=== PATIENT | male | born 1960 | race Caucasian/White ===

== ENCOUNTER 2021-11-22 17:10 | Emergency (ER) | payer BC, OTHER ==
--- OUTSIDE RECORDS SUMMARY | 2021-11-22 17:13 | XMS REPORT | Continuity of Care Document ---
:1960 Author Organization [facility] t Address [address] [place] [address] Care Team Providers Name Role Phone Pcp, Does Not Have A Primary Care Physician Doctor Unassigned, Name Attending Clinician Unavailable Antonio Murillo MD Attending Clinician Antonio MURILLO Attending Clinician Unavailable VIMAL RODRIGUEZ Attending Clinician Unavailable VIMAL RODRIGUEZ Attending Clinician Unavailable Payers Payer Name Policy Type Policy Number Effective Date Expiration Date S [facility] - [id number] 2020 00:00:00 OUT OF STATE Problems Condition Condition Condition Status Onset Resolution Last Treating Co mments Source Name Details Category Date Date Treatment Clinician Date No known No known Disease Unive rs active active ity of problems problems [facility] Allergies, Adverse Reactions, Alerts Allergy Allergy Status Severity Reaction(s) Onset Inactive Treating Comm ents Source Name Type Date Date Clinician Penicill Propensi Active Other - See U nivers ins ty to comments 02-23 ity of adverse 00:00: [place] reaction 00 Medical s Branch PENICILL Drug Active Other-Cmnt Univ ers INS Class 6-28 ity of 00:00: [place] 00 Medical Branch NO KNOWN Drug Active Univers ALLERGIE Class ity of S [facility] [place] Social History Social Habit Start Date Stop Date Quantity Comments Source History SDOH University o f Alcohol Binge [place] [facility] History SDOH University o f Alcohol Comment [facility] Exposure to Not sure University of SARS-CoV-2 [facility] (event) [facility] History SDOH University o f Alcohol Std [facility] Drinks [facility] Alcohol intake 2021-06-19 2021-06-19 Lifetime University of 00:00:00 00:00:00 non-drinker [facility] (finding) [facility] Tobacco use and 2021-01-05 2021-01-05 Never used Universit y of exposure 00:00:00 00:00:00 [facility] History SDOH 2021-01-05 2021-01-05 1 University o f Alcohol Frequency 00:00:00 00:00:00 [facility] Sex Assigned At [birth year] Universit y of 00:00:00 00:00:00 [facility] Smoking Status Start Date Stop Date Source Never smoker [facility] Medications Ordered Filled Start Stop Current Ordering Indication Dosage Frequency Signature Comments Components Source Medication Medication Date Date Medication? Clinician (SIG) Name Name diclofenac Yes 75mg Take 1 Unive rs 75 mg EC 5-11 tablet by ity of tablet 00:00: mouth 2 [place] ([facility]) Medical times Branch daily with meals. diclofenac 2020-0 Yes 75mg Take 1 Unive rs 75 mg EC 5-11 tablet by ity of tablet 00:00: mouth 2 [place] ([facility]) Medical times Branch daily with meals. diclofenac 2020-0 Yes 75mg Take 1 Unive rs 75 mg EC 5-11 tablet by ity of tablet 00:00: mouth 2 [place] ([facility]) Medical times Branch daily with meals. ibuprofen 2020-0 Yes 600mg Take 600 Uni vers 600 mg 3-16 mg by ity of tablet 00:00: mouth 4 [place] ([facility]) Medical times Branch daily. ibuprofen 2020-0 Yes 600mg Take 600 Uni vers 600 mg 3-16 mg by ity of tablet 00:00: mouth 4 [place] ([facility]) Medical times Branch daily. ibuprofen 2020-0 Yes 600mg Take 600 Uni vers 600 mg 3-16 mg by ity of tablet 00:00: mouth 4 [place] ([facility]) Medical times Branch daily. lisinopriL 2020- Yes 10mg Take 10 mg U nivers 10 mg 2-19 by mouth ity of tablet 00:00: daily. [address] lisinopriL 2020-0 Yes 10mg Take 10 mg U nivers 10 mg 2-19 by mouth ity of tablet 00:00: daily. [address] lisinopriL 2020-0 Yes 10mg Take 10 mg U nivers 10 mg 2-19 by mouth ity of tablet 00:00: daily. [address] Procedures Procedure Date / Time Performing Clinician Source Performed DISABILITY/FMLA 2021-07-14 06:01:00 Doctor Unasskat, No Nathaniel carolina [facility] AUTHORIZATION FOR 2021-06-11 05:01:00 Doctor Unassigned, No Univ [facility] RELEASE OF [facility] Encounters Start End Encounter Admission Attending Care Care Encounter Source Date/Time Date/Time Type Type Clinicians Facility Department ID 2021-07-14 2021-07-14 Orders Doctor LAURY [id number] Univers 00:00:00 00:00:00 Only Unassigned, YADIRA [id number] [facility] [id number] [place] as [id number] [address] 2021-06-19 2021-06-19 Office Chidi [facility] [id number] Univers 08:50:50 09:12:45 Visit [facility] [id number] it y of [place] [id number] [place]ay[place] as Edwin?Blea [id number] [address] Medical Office Building 2021-06-19 2021-06-19 Outpatient Cayetano MURILLO [facility] [id number] Univers 08:45:00 08:45:00 DARREL [id number] ity [facility] 2021-06-19 2021-06-19 Outpatient R CHIDI [facility] [id number] Univers 08:45:00 08:45:00 DARREL [facility] 2021-06-11 2021-06-11 Orders Doctor SCHAEFFER [id number] Univers 00:00:00 00:00:00 Only UnassignedYADIRA [id number] [facility] [id number] [place] as [id number] [address] 2021-04-27 2021-04-27 Outpatient CLINT WATKINS [facility] [id number] Univers 09:00:00 09:00:00 CLINT RODRIGUEZ [id number] ity [facility] 2021-04-27 2021-04-27 Outpatient R CLINT RODRIGUEZ [facility] [id number] Univers 09:00:00 09:00:00 [facility] 2021-04-16 Outpatient R CHIDI [facility] [id number] Univers 10:45:00 10:45:00 DARREL [facility] 2021-04-16 2021-04-16 Outpatient R CHIDI [facility] [id number] Univers 10:45:00 10:45:00 [facility] [id number] [facility]-04-13 2021-04-13 Outpatient R CHIDI [facility] [id number] Univers 15:30:00 15:30:00 [facility] [id number] [facility] 2021-04-13 2021-04-13 Outpatient R CHIDI [facility] [id number] Univers 15:30:00 15:30:00 DARREL [facility] 2021-03-26 2021-03-26 Outpatient [facility] [id number] Univers 09:00:00 09:00:00 [id number] [facility] 2021-03-26 2021-03-26 Outpatient R CHIDI [facility] [id number] Univers 09:00:00 09:00:00 DARREL [facility] 2021-02-23 2021-02-23 Outpatient CHIDI [facility] [id number] Univers 15:00:00 15:00:00 [facility] [id number] [facility] 2021-02-23 2021-02-23 Outpatient R CHIDI [facility] [id number] Univers 15:00:00 15:00:00 DARREL [facility] 2021-01-05 2021-01-05 Outpatient R CHIDI [facility] [id number] Univers 15:15:00 15:15:00 DARREL [id number] [facility] 2021-01-05 2021-01-05 Outpatient R CHIDI [facility] [id number] Univers 15:15:00 15:15:00 [facility] 2020-12-11 2020-12-11 Outpatient R CHIDI, [facility] [id number] [facility] 08:00:00 08:00:00 [facility] Results This patient has no known results.
[2021-11-22 20:07] LABS: Absolute Lymphocytes (CBC) 2.9 K/uL (0.7-4.9); Hematocrit 40.5 % (39.6-49.0); Lymphocytes % 26.9 % (15.3-44.8); MPV 8.1 fL (7.6-11.3); RBC Red Blood Cell Count 4.53 M/uL (4.33-5.43)
[2021-11-22 20:09] LABS: Protime INR 1.11
[2021-11-22] MEDS ORDERED: NA CHLORIDE 0.9% 0 ML ONE (20:23)
[2021-11-22] MEDS ORDERED: LORazepam 2 MG/ML VIAL ONE (20:23)
[2021-11-22] MEDS ORDERED: NA CHLORIDE 0.9% 1,000 ML ONE (20:24)
[2021-11-22 20:41] LABS: BUN Blood Urea Nitrogen 16 mg/dL (7-18); Bicarbonate 30 mmol/L (21-32); Glucose Level 103 mg/dL (74-106); Magnesium 2.1 mg/dL (1.8-2.4); Potassium 4.3 mmol/L (3.5-5.1); Sodium Level 139 mmol/L (136-145); Troponin High Sensitivity 5.9 pg/mL (<58.9)
--- NOTE | 2021-11-22 20:53 | RAD REPORT ---
EXAM DESCRIPTION: Jessica Single View11/22/2021 8:31 pm CLINICAL HISTORY: Vomiting and weakness COMPARISON: none FINDINGS: The lungs appear clear of acute infiltrate. The heart is normal size IMPRESSION: No acute abnormalities displayed
[2021-11-22 21:14] LABS: Urine Blood Negative (Negative); Urine Glucose Negative (Negative); Urine Protein Negative (Negative); Urine Specific Gravity >=1.030 (1.005-1.030); Urine pH 6.5 (5.0-7.0)
--- NOTE | 2021-11-22 21:28 | RAD REPORT ---
EXAM DESCRIPTION: CT - Head Brain Wo Cont - 11/22/2021 9:09 pm CLINICAL HISTORY: Headache COMPARISON: None TECHNIQUE: Computed axial tomography of the head was obtained. IV contrast was not requested. All CT scans are performed using dose optimization technique as appropriate and may include automated exposure control or mA/KV adjustment according to patient size. FINDINGS: An intracranial bleed is not seen . The ventricles are normal in caliber. No extra-axial fluid collection is noted. Mild low-density areas within periventricular, deep and subcortical white matter likely represent isc hemic changes secondary to small vessel disease. Moderate ethmoid and left maxillary sinusitis IMPRESSION: No acute intracranial abnormality is seen. If patient's symptoms persist MRI of the bra in would be recommended. Moderate ethmoid and left maxillary sinusitis
[2021-11-22 21:39] LABS: Barbiturates NEGATIVE (NEGATIVE); Benzodiazepines NEGATIVE (NEGATIVE); Cocaine NEGATIVE (NEGATIVE); METHAMPHETAM NEGATIVE (NEGATIVE); Methadone NEGATIVE (NEGATIVE); Opiates POSITIVE (NEGATIVE); Phencyclidine NEGATIVE (NEGATIVE); THC Cannibis NEGATIVE (NEGATIVE)
[2021-11-22 21:44] LABS: Urine Bacteria <20 /HPF (NONE SEEN); Urine RBC NONE SEEN /HPF (NONE SEEN)
[2021-11-23 00:03] LABS: ALT/SGPT 27 U/L (12-78); AST/SGOT 14 U/L (15-37); Albumin 3.7 g/dL (3.4-5.0); Alkaline Phosphatase 90 U/L (45-117); Bilirubin Total 0.5 mg/dL (0.2-1.0); Protein, Total 7.5 g/dL (6.4-8.2)
[2021-11-23 00:07] LABS: Bilirubin Direct < 0.1 mg/dL (0-0.2)
--- NOTE | 2021-11-23 02:53 | ER ---
Nurse's Notes [facility] Name: Vinicius Rhoades Age: 61 yrs Sex: Male : 1960 Arrival Date: 11/22/2021 Time: 17:14 Bed 17 Private MD: Diagnosis: Other depressive episodes;Anxiety disorder, unspecified Presentation: 11/22 17:25 Chief complaint: Spouse and/or significant other states: "He went to work yesterday and ab2 he came saying he was throwing up at work. I then find out he cant hardly eat anything, which is not like him. Today I found him all jittery and not like himself. Its like depression and anxiety." Pt c/o left knee pain and chronic lower back pain. Pt is crying and states that he is so stressed. Pt states, "this is not me, I don't know what is going on.". Coronavirus screen: Vaccine status: Patient reports receiving the 2nd dose of the covid vaccine. Client denies travel out of the [place] in the last 14 days. At this time, the client does not indicate any symptoms associated with coronavirus-19. Ebola Screen: Patient negative for fever greater than or equal to 101.5 degrees Fahrenheit, and additional compatible Ebola Virus Disease symptoms Patient denies exposure to infectious person. Patient denies travel to an Ebola-affected area in the 21 days before illness onset. No symptoms or risks identified at this time. Initial Sepsis Screen: Does the patient meet any 2 criteria? No. Patient's initial sepsis screen is negative. Does the patient have a suspected source of infection? No. Patient's initial sepsis screen is negative. Risk Assessment: Do you want to hurt yourself or someone else?. Risk Assessment: Do you want to hurt yourself or someone else? Patient reports no desire to harm self or others. Onset of symptoms is unknown. 17:25 Method Of Arrival: Ambulatory ab2 17:25 Acuity: GAYLA 3 ab2 Triage Assessment: 17:30 General: Appears in no apparent distress. uncomfortable, Behavior is anxious, crying. ab2 Pain: Complains of pain in head and left leg Pain currently is 8 out of 10 on a pain scale. Pain began Also complains of. Neuro: Level of Consciousness is awake, alert, obeys commands, Oriented to person, place, time, situation, Appropriate for age Reports headache. 23:06 Headache History: Denies prior headaches. kd3 Historical: - Allergies: 17:30 PENICILLINS; ab2 - PMHx: 17:30 None; ab2 - PSHx: 17:30 None; ab2 - Immunization history:: Adult Immunizations up to date. - Social history:: Smoking status: Patient reports the use of cigarette tobacco products, smokes one pack cigarettes per day. Screenin:05 Abuse screen: Denies threats or abuse. Denies injuries from another. Abuse screen: kd3 Denies threats or abuse. Denies injuries from another. Nutritional screening: No deficits noted. Tuberculosis screening: No symptoms or risk factors identified. Fall Risk IV access (20 points). Assessment: 19:01 General: Appears in no apparent distress. comfortable, Behavior is cooperative, jd3 appropriate for age, anxious, crying. Pain: Complains of pain in head and left leg Quality of pain is described as aching. Neuro: Level of Consciousness is awake, alert, obeys commands, Oriented to person, place, time, situation. Cardiovascular: Denies chest pain, Capillary refill < 3 seconds Patient's skin is warm and dry. Respiratory: Airway is patent Respiratory effort is even, unlabored, Respiratory pattern is regular, symmetrical. GI: No signs and/or symptoms were reported involving the gastrointestinal system. : No signs and/or symptoms were reported regarding the genitourinary system. EENT: No signs and/or symptoms were reported regarding the EENT system. Derm: Skin is intact, Skin is dry, Skin is normal, Skin temperature is warm. Musculoskeletal: Circulation, motion, and sensation intact. Range of motion: intact in all extremities. 23:06 Reassessment: Patient is alert, oriented x 3, equal unlabored respirations, skin kd3 warm/dry/pink. pt seen sleeping in stretcher. 11/23 00:34 Reassessment: pt is agreeable to speak with community hospital at this time. denies current kd3 thoughts of self harm or suicide but reports having thoughts in the past. Vital Signs: 11/22 17:25 BP 122 / 74; Pulse 81; Resp 18; Temp 99.1(TE); Pulse Ox 95% on R/A; Weight 67.59 kg; ab2 Height 5 ft. 9 in. (175.26 cm); Pain 8/10; 19:48 BP 154 / 76; Pulse 63; Resp 14; Temp 98.0; kd3 23:05 BP 111 / 61; Pulse 67; Resp 16; Pulse Ox 98% on R/A; kd3 11/23 02:46 BP 129 / 72; Pulse 71; Resp 16; Pulse Ox 100% on R/A; kd3 11/22 17:25 Body Mass Index 22.00 (67.59 kg, 175.26 cm) ab2 ED Course: 11/22 17:14 Patient arrived in ED. ds1 17:30 Triage completed. ab2 17:31 Arm band placed on right wrist. ab2 18:57 Dexter Barger PA is PHCP. cp 18:57 Dexter Womack MD is Attending Physician. cp 19:20 Shayla Bauer, RN is Primary Nurse. kd3 20:33 XRAY Chest (1 view) In Process Unspecified. EDMS 21:11 CT Head Brain wo Cont In Process Unspecified. EDMS 21:46 Yevgeniy Parrish MD is Attending Physician. cp 23:06 Patient has correct armband on for positive identification. Bed in low position. Call 3 light in reach. Side rails up X2. 23:14 contacted [facility] Crisis line spoke to Roxie to have a screener evaluate the patient. mw2 11/23 01:50 patient talking to Richie from [facility]. mw2 03:29 No provider procedures requiring assistance completed. IV discontinued, intact, kd3 bleeding controlled, No redness/swelling at site. Pressure dressing applied. Administered Medications: 11/22 20:26 Drug: Ativan (LORazepam) 1 mg Route: IVP; Site: right antecubital; kd3 21:37 Follow up: Response: No adverse reaction kd3 20:26 Drug: NS 0.9% 500 ml Route: IV; Rate: bolus; Site: right antecubital; kd3 21:37 Follow up: Rate change 500 ml; IV Status: Completed infusion kd3 21:37 Drug: NS 0.9% 500 ml Route: IV; Rate: 125 ml/hr; Site: right antecubital; kd3 11/23 03:29 Follow up: IV Status: Completed infusion kd3 Outcome: 02:52 Discharge ordered by . cp 03:29 Discharged to home ambulatory. kd3 03:29 Condition: stable 03:29 Discharge instructions given to patient, family, Instructed on discharge instructions, follow up and referral plans. Demonstrated understanding of instructions, follow-up care. 03:30 Patient left the ED. kd3 Signatures: Dispatcher [employer] EDAL Flora Oneill ds1 Dexter Barger PA PA cp Davies, Jonathon, RN RN jd3 Carrillo Jordan2 Shayla Bauer RN RN kd3 Ken Laird2
--- NOTE | 2021-11-23 02:53 | EDPHYS ---
Physician Documentation [facility] Name: Vinicius Rhoades Age: 61 yrs Sex: Male : 1960 Arrival Date: 11/22/2021 Time: 17:14 Bed 17 Private MD: ED Physician Yevgeniy Parrish HPI: 11/22 19:25 This 61 yrs old Male presents to ER via Ambulatory with complaints of Anxiety, cp Headache, Doesn't Feel Right. 19:25 Associated signs and symptoms: Pertinent negatives: abdominal pain, chest pain, cp constipation, cough, diarrhea, fever, wheezing. 19:25 Patient c/o headache, difficulty sleeping, weight loss over past 3 months, decreased cp appetite. Patient reports "I just don't feel right". 23:05 reports patient grabbed a knife today and pressed it against his body in attempt cp to harm himself. She reports she was able to get knife away from him after distracting him. Historical: - Allergies: 17:30 PENICILLINS; ab2 - PMHx: 17:30 None; ab2 - PSHx: 17:30 None; ab2 - Immunization history:: Adult Immunizations up to date. - Social history:: Smoking status: Patient reports the use of cigarette tobacco products, smokes one pack cigarettes per day. ROS: 19:30 Constitutional: Positive for weight loss, Negative for body aches, chills, fever, poor cp PO intake. 19:30 Eyes: Negative for injury, pain, redness, and discharge. cp 19:30 ENT: Negative for drainage from ear(s), ear pain, sore throat, difficulty swallowing, difficulty handling secretions. 19:30 Cardiovascular: Negative for chest pain, edema, palpitations. 19:30 Respiratory: Negative for cough, shortness of breath, wheezing. 19:30 Abdomen/GI: Negative for abdominal pain, nausea, vomiting, and diarrhea. 19:30 : Negative for urinary symptoms. 19:30 Skin: Negative for cellulitis, rash. 19:30 Neuro: Positive for headache, Negative for altered mental status, dizziness, weakness. 19:30 Psych: Positive for anxiety, insomnia. 19:30 All other systems are negative. Exam: 19:33 ECG was reviewed by the Attending Physician. cp 19:35 Constitutional: The patient appears in no acute distress, alert, awake, cp non-diaphoretic, non-toxic, well developed, well nourished, anxious. 19:35 Head/Face: Normocephalic, atraumatic. cp 19:35 Eyes: Periorbital structures: appear normal, Pupils: equal, round, and reactive to light and accomodation, Extraocular movements: intact throughout, Conjunctiva: normal, no exudate, no injection, Sclera: no appreciated abnormality, Lids and lashes: appear normal, bilaterally. 19:35 ENT: External ear(s): are unremarkable, Ear canal(s): are normal, clear, TM's: dullness, bilaterally, Nose: is normal, Mouth: Lips: moist, Oral mucosa: pink and intact, moist, Posterior pharynx: Airway: no evidence of obstruction, patent. 19:35 Neck: ROM/movement: is normal, is supple, without pain, no range of motions limitations. 19:35 Chest/axilla: Inspection: normal, Palpation: is normal, no crepitus, no tenderness. 19:35 Cardiovascular: Rate: normal, Rhythm: regular, Edema: is not appreciated, JVD: is not appreciated. 19:35 Respiratory: the patient does not display signs of respiratory distress, Respirations: normal, no use of accessory muscles, no retractions, labored breathing, is not present, Breath sounds: are clear throughout, no decreased breath sounds, no stridor, no wheezing. 19:35 Abdomen/GI: Inspection: abdomen appears normal, Bowel sounds: active, all quadrants, Palpation: abdomen is soft and non-tender, in all quadrants. 19:35 Back: pain, is absent, ROM is normal. 19:35 Skin: cellulitis, is not appreciated, no rash present. 19:35 Neuro: Orientation: to person, place \\T\\ time. Mentation: is normal, Motor: moves all fours, strength is normal, Sensation: is normal. Vital Signs: 17:25 BP 122 / 74; Pulse 81; Resp 18; Temp 99.1(TE); Pulse Ox 95% on R/A; Weight 67.59 kg; ab2 Height 5 ft. 9 in. (175.26 cm); Pain 8/10; 19:48 BP 154 / 76; Pulse 63; Resp 14; Temp 98.0; kd3 23:05 BP 111 / 61; Pulse 67; Resp 16; Pulse Ox 98% on R/A; kd3 11/23 02:46 BP 129 / 72; Pulse 71; Resp 16; Pulse Ox 100% on R/A; kd3 11/22 17:25 Body Mass Index 22.00 (67.59 kg, 175.26 cm) ab2 MDM: 11/22 18:58 Patient medically screened. erick 21:00 Differential diagnosis: viral Infection, bacterial infection, bronchitis, pneumonia cp gastroenteritis, meningitis, depression, anxiety, suicidal ideation. 11/23 02:49 Data reviewed: vital signs, nurses notes, lab test result(s), EKG, radiologic studies, cp CT scan, plain films. Test interpretation: by ED physician or midlevel provider: ECG, plain radiologic studies. Counseling: I had a detailed discussion with the patient and/or guardian regarding: the historical points, exam findings, and any diagnostic results supporting the discharge/admit diagnosis, lab results, radiology results, the need for outpatient follow up, for definitive care, a psychiatrist, to return to the emergency department if symptoms worsen or persist or if there are any questions or concerns that arise at home. ED course: VSS. Patient resting comfortably in exam room. Denies any current suicidal and/or homicidal ideations. [facility] screening performed and recommendation is for outpatient treatment of depression and anxiety. Will discharge to home for continued monitoring. 11/22 19:18 Order name: Basic Metabolic Panel 11/22 21:30 Interpretation: Reviewed. 11/22 19:18 Order name: CBC with Diff; Complete Time: 21:29 cp 11/22 21:30 Interpretation: Reviewed. 11/22 19:18 Order name: Magnesium cp 11/22 21:30 Interpretation: Reviewed. 11/22 19:18 Order name: PT-INR 11/22 21:30 Interpretation: Reviewed. 11/22 19:18 Order name: Troponin HS cp 11/22 21:30 Interpretation: Reviewed. cp 11/22 19:56 Order name: Glucose, Ancillary Testing; Complete Time: 21:29 EDMS 11/22 20:04 Order name: Urine Microscopic Only; Complete Time: 22:35 cp 11/22 20:04 Order name: UDS; Complete Time: 21:41 cp 11/22 21:41 Interpretation: Normal except: OPI POSITIVE. cp 11/22 20:04 Order name: ETOH Level; Complete Time: 22:35 cp 11/22 21:14 Order name: Urine Dipstick-Ancillary; Complete Time: 21:29 EDOH 11/22 23:06 Order name: Salicylate cp 11/22 19:18 Order name: XRAY Chest (1 view); Complete Time: 21:29 cp 11/22 21:30 Interpretation: Report reviewed. 11/22 19:18 Order name: Cardiac monitoring; Complete Time: 21:39 cp 11/22 19:18 Order name: EKG - Nurse/Tech; Complete Time: 21:39 cp 11/22 19:18 Order name: IV Saline Lock; Complete Time: 21:39 11/22 19:18 Order name: Labs collected and sent; Complete Time: 21:39 11/22 19:18 Order name: O2 Per Protocol; Complete Time: 21:39 cp 11/22 19:18 Order name: O2 Sat Monitoring; Complete Time: 21:39 11/22 20:04 Order name: Urine Dipstick-Ancillary (obtain specimen); Complete Time: 21:39 11/22 20:36 Order name: CT Head Brain wo Cont; Complete Time: 21:29 11/22 21:31 Interpretation: Report reviewed. 11/22 23:41 Order name: Liver (Hepatic) Function EDOH 11/22 23:41 Order name: Acetaminophen Level EDOH 11/22 23:41 Order name: PTT, Activated Partial Thromb EDOH 11/22 23:06 Order name: Suicide Screening ([place]); Complete Time: 23:19 cp EC/27 19:33 Rate is 61 beats/min. Rhythm is regular. ME interval is normal. QRS interval is normal. cp QT interval is normal. T waves are Inverted in lead aVR. Interpreted by me. Reviewed by me. Administered Medications: 20:26 Drug: Ativan (LORazepam) 1 mg Route: IVP; Site: right antecubital; kd3 21:37 Follow up: Response: No adverse reaction kd3 20:26 Drug: NS 0.9% 500 ml Route: IV; Rate: bolus; Site: right antecubital; kd3 21:37 Follow up: Rate change 500 ml; IV Status: Completed infusion kd3 21:37 Drug: NS 0.9% 500 ml Route: IV; Rate: 125 ml/hr; Site: right antecubital; kd3 11/23 03:29 Follow up: IV Status: Completed infusion kd3 Disposition: 04:45 Co-signature as Attending Physician, Yevgeniy Parrish MD. [email or web address] Disposition Summary: 11/23/21 02:52 Discharge Ordered Location: Home cp Problem: new cp Symptoms: have improved cp Condition: Stable cp Diagnosis - Other depressive episodes cp - Anxiety disorder, unspecified cp Followup: cp - With: Private Physician - When: 1 - 2 days - Reason: Recheck today's complaints Discharge Instructions: - Generalized Anxiety Disorder, Adult cp - Managing Depression, Adult cp - Discharge Summary Sheet kd3 - Depression Screening cp - Supporting Someone With Anxiety cp - Managing Anxiety, Adult cp Forms: - Work release form kd3 - Medication Reconciliation Form cp - Thank You Letter cp - Antibiotic Education cp - Prescription Opioid Use cp Signatures: Dispatcher [employer] EDMS Dexter Womack MD MD cha Page, Corey PA PA Yevgeniy Goel MD MD [facility] Shayla Bauer RN RN 3 Ken Laird2 Corrections: (The following items were deleted from the chart) 11/22 23:06 19:30 This 61 yrs old Male presents to ER via Ambulatory with complaints of Anxiety, cp Headache, Doesn't Feel Right. cp 23:41 23:06 ACETAMINOPHEN+C.LAB.BRZ ordered. EDMS EDMS 23:41 23:06 HEPATIC FUNCTION+C.LAB.BRZ ordered. EDMS EDMS 23:41 23:06 PTT, ACTIVATED+COAG.LAB.BRZ ordered. EDMS EDMS
[2021-11-23 03:52] VITALS: TEMP 98
[2021-11-23 03:55] VITALS: BP 129/72; O2SAT 100
--- NOTE | 2021-11-24 12:38 | EKG ---
Test Date: 2021-11-22 Test Time: 19:26:16 Shank Cutter: DENI MEASUREMENT RESULTS: Intervals: Rate: 61 OR: 144 QRSD: 90 QT: 410 QTc: 412 [place]: P: 61 OR: 144 QRS: 60 T: 57 INTERPRETIVE STATEMENTS: Normal sinus rhythm Normal ECG No previous ECG available for comparison Electronically Signed On 11-24-21 12:33:35 CDT by Isiah Clay
== END 2021-11-23 03:30 | disposition home or self-care (01) ==
LOC: ER 17:10
DX: F32.89 Other specified depressive episodes (principal); F41.9 Anxiety disorder, unspecified; F17.210 Nicotine dependence, cigarettes, uncomplicated; Z88.0 Allergy status to penicillin
CPT/HCPCS: 96361; 93005; 85025; 80048; 36415; 80320; 83735; 80329 ×2; 85610; 82947; 80076; 85730; 84484; 80307; 70450; 71045; 96374; 99283; J7030; 81003; 81015; J7040

== ENCOUNTER 2023-11-21 09:52 | Inpatient (IN) | payer OTHER, SELFPAY ==
--- OUTSIDE RECORDS SUMMARY | 2023-11-21 09:56 | XMS REPORT | Continuity of Care Document ---
Author Name Unknown Address [address] [facility] [address] [place] [address] [facility] thconnect Address [address] [facility] [address] [place] [address] Care Team Providers Care Residence Hall Director Name Role Phone SaturninoOlayinka Chloé Primary Care Physician [phone] DARREL JACOBSON Attending Clinician Unavailabl e Doctor Unassigned, [place] Attending Clinician U TESSY Oreilly Attending Clinician Unavailable Tessy Eisenberg Attending Clinician [phone] Darrel Jacobson MD Attending Clinician [phone] Pob, Adc Lab Main Attending Clinician Unavailabl e Only, Adc Test Attending Clinician Unavailable Jakob Ramírez MD Attending Clinician [phone] JAKOB RAMÍREZ Attending Clinician Unavailable CLINT RODRIGUEZ Attending Clinician Unavail able CLINT RODRIGUEZ Attending Clinician Unavail able DARREL JACOBSON Admitting Clinician UnavailDarrel Gayle MD Admitting Clinician [phone] Payers Payer Name Policy Type Policy Number Effective Date Expirati on Date Source [facility] [id number] 2021 00:00:00 Problems Condition Name Condition Details Condition Category Status Onset Date Resolution Date Last Treatment Date Treating Clinician Comments Source Left knee pain Left knee pain Disease Active 01-18 00:00: 00 [facility] Left knee pain Left knee pain Disease Active 01-18 00:00: 00 [facility] Osteoarthr itis of left knee, unspecifie d osteoarthr itis type Osteoarthr itis of left knee, unspecifie d osteoarthr itis type Disease Active 01-05 00:00: 00 Overview: Formattin g of this note might be different from the original. Added automatic ally from request for surgery [id number] [facility] Allergies, Adverse Reactions, Alerts Allergy Name Allergy Type Status Severity Reaction(s) Onset Date Inactive Date Treating Clinician Comments Source Penicill ins DA Active U Rash 11-24 00:00: 00 [facility] Penicill ins Propensi ty to adverse reaction s Active Rash 02-23 00:00: 00 [facility] PENICILL INS Drug Class Active Rash 02-23 00:00: 00 [facility] Penicill ins Propensi ty to adverse reaction s Active Rash 02-23 00:00: 00 [facility] Social History Social Habit Start Date Stop Date Quantity Comments Source History SDOH Alcohol Binge [facility] History SDOH Alcohol Comment [facility] History SDOH Alcohol Std Drinks [facility] Exposure to SARS-CoV-2 (event) 2022-01-22 00:00:00 2022-02-01 15:02:00 Not sure [facility] Alcohol intake 2022-02-01 00:00:00 2022-02-01 00:00:00 Lifetime non-drinker (finding) [facility] Tobacco use and exposure 2021-01-05 00:00:00 2021-01-05 00:00:00 Smokeless tobacco non-user [facility] History SDOH Alcohol Frequency 2021-01-05 00:00:00 2021-01-05 00:00:00 1 [facility] Sex Assigned At 1960 00:00:00 1960 00:00:00 [facility] Smoking Status Start Date Stop Date Source Never smoked tobacco [facility] Medications Ordered Medication Name Filled Medication Name Start Date Stop Date Current Medication? Ordering Clinician Indication Dosage Frequency Signature (SIG) Comments Components Source No known medications 02-01 15:05: 53 No No known medication s [facility] traZODone 100 mg tablet 01-18 15:08: 43 Yes 100mg Take 100 mg by mouth at bedtime. [facility] traZODone 100 mg tablet 01-18 15:08: 43 Yes 100mg Take 100 mg by mouth at bedtime. [facility] acetaminoph en-codeine (TYLENOL-CO DEINE #3) 300-30 mg tablet 01-18 00:00: 00 Yes 4647 2{tbl} Take 2 tablets by mouth every 6 (six) hours as needed for Pain (scale 4-6) or Pain (scale 7-10). Indication s: acute pain [facility] acetaminoph en-codeine (TYLENOL-CO DEINE #3) 300-30 mg tablet 01-18 00:00: 00 Yes 4647 2{tbl} Take 2 tablets by mouth every 6 (six) hours as needed for Pain (scale 4-6) or Pain (scale 7-10). Indication s: acute pain [facility] venlafaxine XR 150 mg 24 hr capsule 12-17 00:00: 00 Yes 150mg Take 150 mg by mouth daily. [facility] venlafaxine XR 150 mg 24 hr capsule 12-17 00:00: 00 Yes 150mg Take 150 mg by mouth daily. [facility] Vital Signs Vital Name Observation Time Observation Value Comments S caty Systolic blood pressure 2022-02-01 20:05:00 125 mm[Hg] [facility] Diastolic blood pressure 2022-02-01 20:05:00 77 mm[Hg] [facility] Heart rate 2022-02-01 20:05:00 68 /min [facility] Body height 2022-02-01 20:05:00 177.8 cm [facility] Body weight 2022-02-01 20:05:00 70.625 kg [facility] BMI 2022-02-01 20:05:00 22.34 kg/m2 [facility] Oxygen saturation in Arterial blood by Pulse oximetry 2022-02-01 20:05:00 98 /min [facility] Procedures Procedure Date / Time Performed Performing Clinician Source EXTERNAL PROVIDER RECORDS 2023-02-03 05:01:00 Doctor Unassigned, [place] [facility] AUTHORIZATION FOR RELEASE OF PHI 2021-12-23 05:01:00 Doctor Unassigned, [place] [facility] Encounters Start Date/Time End Date/Time Encounter Type Admission Type Attending Clinicians Care Facility Care Department Encounter ID Source 2022-12-20 15:01:27 Outpatient [facility] [id number] [facility] 2022-01-08 10:35:01 Outpatient DARREL GALLAGHER [facility] SOR [id number] [facility] 2021-11-24 14:34:00 Inpatient [facility] [id number] [facility] 2023-02-03 00:00:00 2023-02-03 00:00:00 Orders Only Doctor Unassigned, [place] [facility] 1..840.114 350.1.13.10 4.2.7.2.686 [id number] [facility] 2022-03-03 14:15:00 2022-03-03 14:15:00 Outpatient TESSY YAN [facility] [id number] [facility] 2022-03-03 14:15:00 2022-03-03 14:15:00 Outpatient TESSY YAN [facility] [id number] [facility] 2022-02-01 15:20:00 2022-02-01 23:59:00 Outpatient TESSY YAN [facility] [id number] [facility] 2022-02-01 15:15:00 2022-02-01 16:28:15 [facility] 1..840.114 350.1.13.10 4.2.7.2.686 [id number] [facility] 2022-02-01 15:15:00 2022-02-01 15:15:00 Outpatient R TESSY MARINO [facility] [id number] [facility] 2022-01-18 06:32:00 2022-01-18 13:35:00 Outpatient R DARREL JACOBSON [facility] SOR [id number] [facility] 2022-01-18 06:32:00 2022-01-18 13:35:00 Hospital Encounter Darrel Jacobson [facility] 1.840.114 350.1.13.10 4.2.7.2.686 [id number] [facility] 2022-01-18 06:32:00 2022-01-18 13:35:00 Outpatient R DARREL JACOBSON [facility] SOR [id number] [facility] 2022-01-18 07:30:00 2022-01-18 09:54:[address] [facility] 1.840.114 350.1.13.10 4.2.7.2.686 [id number] [facility] 2022-01-18 00:00:00 2022-01-18 00:00:00 Orders Only Doctor Unassigned, [place] [facility] 1.840.114 350.1.13.10 4.2.7.2.686 [id number] [facility] 2022-01-15 11:18:16 2022-01-15 23:59:00 Hospital Encounter Darrel Jacobson [facility] 1.2840.114 350.1.13.10 4.2.7.2.686 [id number] [facility] 2022-01-15 11:00:00 2022-01-15 11:15:00 Hand Roller Visit Pob, Adc Lab Main [facility] 1.840.114 350.1.13.10 4.2.7.2.686 [id number] [facility] 2022-01-15 10:45:00 2022-01-15 11:00:00 Laboratory Only Only, Adc Test Darrel Jacobson [facility] 1.2840.114 350.1.13.10 4.2.7.2.686 [id number] [facility] 2022-01-15 10:45:00 2022-01-15 10:45:00 Outpatient R DARREL JACOBSON [facility] [id number] [facility] 2022-01-15 10:45:00 2022-01-15 10:45:00 Outpatient DARREL GALLAGHER [facility] [id number] [facility] 2022-01-15 00:00:00 2022-01-15 00:00:00 Orders Only Doctor Unassigned, [place] [facility] 1..114 350.1.13.10 4.2.7.2.686 [id number] [facility] 2022-01-11 00:00:00 2022-01-11 00:00:00 Telephone Darrel Jacobson [facility] 1.84.114 350.1.13.10 4.2.7.2.686 [id number] [facility] 2022-01-11 00:00:00 2022-01-11 00:00:00 Prep For Surgery Darrel Jacobson [facility] 1.2840.114 350.1.13.10 4.2.7.2.686 [id number] [facility] 2022-01-01 10:00:00 2022-01-01 10:28:15 Outpatient TESSY YAN [facility] [id number] [facility] 2022-01-01 10:00:00 2022-01-01 10:28:15 Outpatient TESSY YAN [facility] [id number] [facility] 2022-01-01 10:00:00 2022-01-01 10:15:00 [facility] 1.2.840.114 350.1.13.10 4.2.7.2.686 [id number] [facility] 2022-01-01 10:00:00 2022-01-01 10:00:00 Outpatient Cayetano MARINOTESSY [facility] [id number] [facility] 2022-01-01 10:00:00 2022-01-01 10:00:00 Outpatient Cayetano MARINOTESSY [facility] [id number] [facility] 2021-12-29 09:00:00 2021-12-29 09:55:11 [facility] 1.2.840.114 350.1.13.10 4.2.7.2.686 [id number] [facility] 2021-12-29 09:00:00 2021-12-29 09:55:11 Outpatient Cayetano RAMÍREZ JAKOB [facility] [id number] [facility] 2021-12-29 09:00:00 2021-12-29 09:55:11 Outpatient [facility] [id number] [facility] 2021-12-29 09:00:00 2021-12-29 09:00:00 Outpatient [facility] [id number] 2021-12-29 00:00:00 2021-12-29 00:00:00 Orders Only Doctor Unassigned, [place] [facility] 1.2.840.114 350.1.13.10 4.2.7.2.686 [id number] [facility] 2021-12-23 00:00:00 2021-12-23 00:00:00 Orders Only Doctor Unassigned, [place] [facility] 1.2840.114 350.1.13.10 4.2.7.2.686 [id number] [facility] 2021-12-10 00:00:00 2021-12-10 00:00:00 Telephone JacobsonDarrel [facility] 1.2840.114 350.1.13.10 4.2.7.2.686 [id number] [facility] 2021-12-03 00:00:00 2021-12-03 00:00:00 Letter (Out) Tessy Marino COUNT INCLUDES THE [facility] 1.840.114 350.1.13.10 4.2.7.2.686 [id number] [facility] 2021-12-01 00:00:00 2021-12-01 00:00:00 Telephone Tessy Marino Cassi [facility] 1.2840.114 350.1.13.10 4.2.7.2.686 [id number] [facility] 2021-11-30 16:20:00 2021-11-30 23:59:00 Outpatient R TESSY MARINO [facility] [id number] [facility] 2021-11-30 16:00:00 2021-11-30 17:25:14 Office Visit Tessy Marino COUNT INCLUDES THE [facility] 1.2.840.114 350.1.13.10 4.2.7.2.686 [id number] [facility] 2021-11-30 16:00:00 2021-11-30 17:25:14 Outpatient R TESSY MARINO [facility] [id number] [facility] 2021-11-24 14:34:00 2021-11-24 14:34:00 Emergency [facility] [id number] [facility] 2021-07-14 00:00:00 2021-07-14 00:00:00 Orders Only Doctor Unassigned, [place] [facility] 1.114 350.1.13.10 4.2.7.2.686 [id number] [facility] 2021-06-19 08:50:50 2021-06-19 09:12:45 [facility] 1.114 350.1.13.10 4.2.7.2.686 [id number] [facility] 2021-06-19 08:45:00 2021-06-19 08:45:00 Outpatient R DARREL JACOBSON [facility] [id number] [facility] 2021-06-19 00:00:00 2021-06-19 00:00:00 [facility] (Out[facility] 1.114 350.1.13.10 4.2.7.2.686 [id number] [facility] 2021-06-12 00:00:00 2021-06-12 00:00:00 Telephone [facility] 1.114 350.1.13.10 4.2.7.2.686 [id number] [facility] 2021-06-11 00:00:00 2021-06-11 00:00:00 Orders Only Doctor Unassigned, [place] [facility] 1.114 350.1.13.10 4.2.7.2.686 [id number] [facility] 2021-04-27 09:00:00 2021-04-27 09:00:00 Outpatient CLINT WATKINS DENISE [facility] [id number] [facility] 2021-04-16 10:45:00 2021-04-16 10:45:00 Outpatient DARREL GALLAGHER [facility] [id number] [facility] 2021-04-13 15:30:00 2021-04-13 15:30:00 Outpatient DARREL GALLAGHER [facility] [id number] [facility] 2021-03-26 09:00:00 2021-03-26 09:00:00 Outpatient DARREL GALLAGHER [facility] [id number] [facility] 2021-03-24 00:00:00 2021-03-24 00:00:00 Orders Only Doctor Unassigned, [place] [facility] 1.2840.114 350.1.13.10 4.2.7.2.686 [id number] [facility] 2021-03-02 00:00:00 2021-03-02 00:00:00 Orders Only Doctor Unassigned, [place] [facility] 1.2.840.114 350.1.13.10 4.2.7.2.686 [id number] [facility] 2021-02-23 14:42:07 2021-02-23 15:32:16 Office Visit Darrel Jacobson [facility] 1.2.840.114 350.1.13.10 4.2.7.2.686 [id number] [facility] 2021-02-23 15:00:00 2021-02-23 15:00:00 Outpatient DARREL GALLAGHER [facility] [id number] [facility] 2021-02-23 00:00:00 2021-02-23 00:00:00 Letter (Out) Tessy Marino [facility] Nava 1.2.840.114 350.1.13.10 4.2.7.2.686 [id number] [facility] 2021-02-23 00:00:00 2021-02-23 00:00:00 Telephone Tessy Marino [facility] Nava 1.2.840.114 350.1.13.10 4.2.7.2.686 [id number] [facility] 2021-02-16 00:00:00 2021-02-16 00:00:00 Telephone Darrel Jacobson Antonio [facility] Surgical Special héctor Nava 1.2.840.114 350.1.13.10 4.2.7.2.686 [id number] [facility] 2021-01-06 00:00:00 2021-01-06 00:00:00 Telephone Tessy Marino [facility] Surgical Specialnorma Nava 1.2.840.114 350.1.13.10 4.2.7.2.686 [id number] [facility] 2021-01-05 14:59:35 2021-01-05 15:41:48 Office Visit Darrel Jacobson [facility] Special h[facility]ctor Nava 1.2.840.114 350.1.13.10 4.2.7.2.686 [id number] [facility] 2021-01-05 15:15:00 2021-01-05 15:15:00 Outpatient R DARREL JACOBSON [facility] [id number] [facility] 2020-12-30 00:00:00 2020-12-30 00:00:00 Orders Only Doctor Unassigned, [place] [facility] 1.2.840.114 350.1.13.10 4.2.7.2.686 [id number] [facility] 2020-12-22 00:00:00 2020-12-22 00:00:00 Telephone Marino Tessy Ye [facility] Surgical Specialti héctor Nava 1.2.840.114 350.1.13.10 4.2.7.2.686 [id number] [facility] 2020-12-22 00:00:00 2020-12-22 00:00:00 Orders Only Doctor Unassigned, [place] [facility] 1.2.840.114 350.1.13.10 4.2.7.2.686 [id number] [facility] 2020-12-11 08:26:01 2020-12-11 23:59:00 Hospital Encounter Darrel Jacobson [facility] h[facility]ctor [place] 1.2.840.114 350.1.13.10 4.2.7.2.686 [id number] [facility] 2020-12-11 08:02:56 2020-12-11 08:43:22 Office Visit Darrel Jacobson Antonio [facility] Special h[facility]ctor Nava 1.2.840.114 350.1.13.10 4.2.7.2.686 [id number] [facility] 2020-12-11 08:26:00 2020-12-11 08:26:00 Hospital Encounter Jacobson Darrel Antonio [facility] Surgical Special h[facility]ctor [place] 1.2.840.114 350.1.13.10 4.2.7.2.686 [id number] [facility] 2020-12-11 08:00:00 2020-12-11 08:00:00 Outpatient R DARREL JACOBSON [facility] [id number] [facility] 2020-12-11 00:00:00 2020-12-11 00:00:00 Orders Only Doctor Unassigned, [place] [facility] 1.2.840.114 350.1.13.10 4.2.7.2.686 [id number] [facility] Results Test Description Test Time Test Comments Results Result Co mments Source Complete Blood Count Auto [id number] 15:43:00* Test Item Value Reference Range Interpretation Comme nts White Blood Count (test code = WBCT) 9.9 x10 3/uL 4.4-10.5 N Red Blood Count (test code = RBC) 4.52 x10 6/uL 4.10-5.70 N Hemoglobin (test code = HGBT) 13.7 g/dL 13.4-17.4 N Hematocrit (test code = HCTT) 42.0 % 38.7-52.0 N Mean Corpuscular Volume (brian t code = MCV) 92.90 fL 80.00-100.00 N Mean Corpuscular Hemoglobin (test code = MCH) 30.3 pg 27.0-32.5 N Mean Corpuscular HGB Conc (test code = MCHC) 32.60 g/dL 32.00-37.50 N RDW Coefficient of Variation (test code = RDWCV) 14.1 % 11.5-14.5 N Platelet Count (test code = PLTT) 260.0 x10 3/uL 140.0-440.0 N Mean Platelet Volume (test code = MPV) 9.9 fL Immature Granulocytes % (Aut o) (test code = IMMGRAN%) 0.2 % 0.0-5.0 N Neutrophils % (Auto) (test code = NE%) 55.2 % 36.0-70.0 N Lymphocytes % (Auto) (test code = LY%) 34.8 % 12.0-44.0 N Monocytes % (Auto) (test cod e = MO%) 8.0 % 0.0-11.0 N Eosinophils % (Auto) (test code = EO%) 1.4 % 0.0-7.0 N Basophils % (Auto) (test cod e = BA%) 0.4 % 0.0-2.0 N Immature Granulocytes # (Aut o) (test code = IMMGRAN#) 0.02 x10 3/uL Neutrophils # (Auto) (test code = NE#) 5.5 x10 3/uL 1.6-7.4 N Lymphocytes # (Auto) (test code = LY#) 3.44 x10 3/uL 0.50-4.60 N Monocytes # (Auto) (test cod e = MO#) 0.79 x10 3/uL 0.00-1.20 N Eosinophils # (Auto) (test code = EO#) 0.14 x10 3/uL 0.00-0.74 N Basophils # (Auto) (test cod e = BA#) 0.04 x10 3/uL 0.00-0.21 N nRBC Abs (test code = NRBCA) 0 nRBC Pct (test code = NRBCP) 0 % Comprehensive Metabolic [id number] 15:43:00* Test Item Value Reference Range Interpretation Comme nts SODIUM (test code = NA) 140.0 mmol/L 136.0-145.0 N Potassium,K (test code = K) 3.8 mmol/L 3.0-5.1 N Chloride (test code = CL) 107 mmol/L 98-107 N Carbon Dioxide (test code = CO2) 29 mmol/L 20-31 N Anion Gap (test code = GAP) 4 mmol/L 5-15 L Blood Urea Nitrogen (test co de = BUN) 13 mg/dL 9-23 N Creatinine (test code = CREATT) 0.93 mg/dL 0.55-1.02 N Creatinine Clr Calc Pharmacy (test code = CRCLPHA) 79.45 mL/min Estimated GFR ( Amer[place] ca (test code = EGFRAA) > 60 mL/min/1.73m2 Estimated GFR (Non Afr [place] ca (test code = EGFRNAA) > 60 mL/min/1.73m2 BUN/Creatinine Ratio (test c ode = BCRATIO) 14 ratio 10-20 N Glucose (test code = GLU) 119 mg/dL 74-106 H Osmolality,Calculated (test code = OSMOC) 290.6 Calcium (test code = CA) 9.7 mg/dL 8.3-10.6 N Bilirubin,Total (test code = BILIT) 0.5 mg/dL 0.2-1.1 N Aspartate Amino Transferase (test code = AST) 18 U/L 0-34 N Alanine Aminotransferase (te st code = ALT) 24 U/L 10-49 N Total Protein (test code = TP) 7.2 g/dL 5.7-8.2 N Albumin Level (test code = ALB) 4.6 g/dL 3.2-4.8 N Globulin (test code = GLOB) 2.6 mg/dL 2.3-3.5 N Albumin/Globulin Ratio (test code = AGRATIO) 1.8 ratio 0.8-2.0 N Alkaline Phosphatase (test c ode = ALP) 94 U/L 46-116 N Drug Screen,[id number] 15:41:00* Test Item Value Reference Range Interpretation Comme nts PCP Phencyclidine Screen,Uri ne (test code = PCPU) Negative Negative Amphetamine Screen,Urine (te st code = AMPU) Negative Negative Methadone Screen,Urine (test code = METHU) Negative Negative Opiate Screen,Urine (test co de = UOPIS) Positive Negative A Barbituates Screen,Urine (te st code = BARBU) Negative Negative Benzodiazepines Screen,Urine (test code = UBENZS) Negative Negative Cocaine Screen,Urine (test c ode = UCOCS) Negative Negative Cannabinoid Screen,Urine (te st code = UTHCS) Negative Negative Propoxyphene Screen, Urine ( test code = UPROP) Negative Negative UA, Urinalysis Rflx Cult/[id number] 15:41:00* Test Item Value Reference Range Interpretation Comme nts Color,Urine (test code = UCOL) Yellow Yellow Clarity,Urine (test code = UCLAR) Clear Clear Ph, Urine (test code = UPH) 6.0 5.0-9.0 N Specific Allred,Urine (test code = USG) 1.010 1.005-1.030 N Blood,Urine (test code = UBLD) Negative mg/dL Negative Protein,Urine (test code = UPRO) Negative mg/dL Negative Glucose,Urine (UA) (test cod e = UGLU) Negative mg/dL Negative Ketones,Urine (test code = UKET) Negative mg/dL Negative Nitrate,Urine (test code = UNIT) Negative Negative Bilirubin,Urine (test code = UBIL) Negative mg/dL Negative Urobilinogen,Urine (test cod e = UURO) 0.2 E.U./dL Normal Leukocyte Esterase,Urine (te st code = ULEU) Negative mg/dL Negative
[2023-11-21] MEDS ORDERED: ALBUTEROL 2.5 MG/3 ML NEB SOL ONE (10:07)
[2023-11-21] MEDS ORDERED: IPRATROPIUM BROM 0.5MG/2.5ML ONE (10:08)
[2023-11-21] MEDS ORDERED: METHYLPREDNISOLONE 125 MG INJ ONE (10:08)
[2023-11-21 10:24] LABS: Absolute Eosinophils 0.1 K/uL (0-0.5); Absolute Monocytes 0.5 K/uL (0.1-1.3); Absolute Neutrophil 10.4 K/uL (1.8-8.0); Basophils % 0.2 % (0-1.3); Eosinophils % 0.5 % (0-4.4); Hematocrit 37.3 % (39.6-49.0); Hemoglobin 12.2 g/dL (13.6-17.9); MCH 27.6 pg (27.0-35.0); MCHC 32.8 g/dL (32.0-36.0); MCV 84.1 fL (80-100); MPV 8.4 fL (7.6-11.3); Monocytes % 4.5 % (3.3-12.3); Neutrophils % 86.8 % (41.7-73.7); Nucleated Red Blood Cells % 0.1 % (0-0); Platelets 263 thou/uL (152-406); RBC Red Blood Cell Count 4.43 M/uL (4.33-5.43); Red Cell Distribution Width 15.3 % (12.1-15.2)
[2023-11-21 10:30] LABS: PT Prothrombin Time 12.7 SECONDS (9.5-12.5); PTT, Activated Partial Thromb 30.3 SECONDS (24.3-36.9); Protime INR 1.16
[2023-11-21 10:36] LABS: Albumin 3.3 g/dL (3.4-5.0); Albumin/Globulin Ratio 0.8 (1.1-1.8); Bilirubin Total 0.4 mg/dL (0.2-1.0); Protein, Total 7.3 g/dL (6.4-8.2)
[2023-11-21 11:02] LABS: Blood Morphology Comment NOT SEEN (NOT SEEN); Platelet Estimate ADEQ; White Blood Cell Scan OK (OK)
[2023-11-21] MEDS ORDERED: NA CHLORIDE 0.9% 1,000 ML ONE (11:07)
[2023-11-21] MEDS ORDERED: AZITHROMYCIN 500 MG INJ IVPB ONE (11:07)
[2023-11-21] MEDS ORDERED: CEFTRIAXONE 1000 MG/VIAL ONE (11:07)
--- NOTE | 2023-11-21 11:09 | RAD REPORT ---
EXAM DESCRIPTION: RAD - Chest Single View - 11/21/2023 11:01 am CLINICAL HISTORY: DYSPNEA Chest pain. COMPARISON: Chest Single View dated 11/22/2021; Chest For Pe Angio dated 11/21/2023 FINDINGS: Portable technique limits examination quality. Moderate bilateral pulmonary opacities are seen which probably indicates pulmonary edema. Bilateral p leural effusions are suspected. The heart is mildly to moderately enlarged in size. No displaced frac tures. IMPRESSION: Mild to moderate CHF versus volume overload pattern.
--- NOTE | 2023-11-21 11:19 | RAD REPORT ---
EXAM DESCRIPTION: CT - Chest For Pe Angio - 11/21/2023 11:03 am CLINICAL HISTORY: Chest pain. DYSPNEA COMPARISON: No comparisons TECHNIQUE: CT angiogram of the pulmonary arteries was performed with MIP. All CT scans are performed using dose optimization technique as appropriate and may include automated exposure control or mA/KV adjustment according to patient size. FINDINGS: No evidence of pulmonary thromboembolism. No acute aortic finding demonstrated. Gsjn-yc-mjnfsfdw interstitial pulmonary edema. Moderate bilateral pleural effusions. No concerning bony finding. IMPRESSION: No evidence of pulmonary thromboembolism. Moderate CHF versus volume overload pattern.
[2023-11-21 11:41] LABS: SARS-CoV-2 Antigen CONTROL BLUE LINE VIS/BG OK; SARS-CoV-2 Antigen Rapid Res Negative (Negative)
--- NOTE | 2023-11-21 11:46 | EDPHYS ---
Physician Documentation [facility] Name: Vinicius Rhoades Age: 63 yrs Sex: Male : 1960 Arrival Date: 11/21/2023 Time: 09:52 Bed 8 Private MD: ED Physician Dayo Oscar HPI: 11/20 12:29 This 63 yrs old Male presents to ER via Wheelchair with complaints of Breathing kb Difficulty. 12:29 Patient is a 63-year-old male who presents for shortness of breath for 5 or 6 days that kb is getting worse. Reports cough. Denies fever, congestion, chest pain.. Historical: - Allergies: 09:59 PENICILLINS; mb9 - Home Meds: 09:59 None [Active]; mb9 - PMHx: 09:59 Hypertensive disorder; mb9 - PSHx: 09:59 B knee SX; Appendectomy; mb9 - Immunization history:: Adult Immunizations up to date. - Social history:: Smoking status: Patient reports the use of cigarette tobacco products, smokes one pack cigarettes per day. ROS: 11:33 Constitutional: As per HPI kb Exam: 11:33 Head/Face: Normocephalic, atraumatic. ENT: Moist Mucous membranes Cardiovascular: kb Regular rate Abdomen/GI: Soft, non-tender. No distention Skin: Warm, dry with normal turgor. Normal color. MS/ Extremity: Pulses equal, no cyanosis. Neurovascular intact. Full, normal range of motion. Neuro: Awake and alert, GCS 15, oriented to person, place, time, and situation. Moves all extremities. Normal gait. 11:33 Constitutional: The patient appears alert, awake, in obvious distress, 11:33 Respiratory: mild respiratory distress is noted, Respirations: labored breathing, that is mild, that is moderate, Breath sounds: decreased breath sounds, that are mild, Vital Signs: 09:58 BP 137 / 96; Pulse 98; Resp 24; Temp 97.5; Pulse Ox 97% on R/A; Weight 68.04 kg; Height mb9 5 ft. 11 in. ; Pain 0/10; 10:00 BP 147 / 96; Pulse 98; Resp 15; Pulse Ox 99% ; ko1 11:22 BP 156 / 106; Pulse 101; Resp 27; Pulse Ox 98% on 2 lpm NC; ko1 15:30 BP 156 / 99; Pulse 99; Resp 20 S; Temp 97.8(TE); Pulse Ox 100% on 2 lpm NC; ko1 09:58 Body Mass Index 20.92 (68.04 kg, 180.34 cm) mb9 09:58 Pain Scale: Adult mb9 MDM: 09:56 Patient medically screened. kb 11:35 Differential diagnosis: CHF exacerbation, Chronic Obstructive Pulmonary Disease. Data kb reviewed: vital signs, nurses notes. Consideration of Admission/Observation Patient was admitted/placed on observation. Escalation of care including admission/observation considered. Management of patient was discussed with the following: Hospitalist: Hospitalist team, accepted for admission under Dr Cortes. 12:29 Counseling: I had a detailed discussion with the patient and/or guardian regarding the kb historical points, exam findings, and any diagnostic results supporting the discharge/admit diagnosis, lab results, radiology results, the need for further work-up and treatment in the hospital. 11/20 09:57 Order name: Blood Culture Adult (2) kb 11/20 09:57 Order name: CBC with Diff; Complete Time: 11:03 kb 11/20 09:57 Order name: CMP; Complete Time: 10:39 kb 11/20 09:57 Order name: Lactate w/ 2H reflex if indic.; Complete Time: 11:00 kb 11/20 09:57 Order name: Protime (+inr); Complete Time: 10:34 kb 11/20 09:57 Order name: Ptt, Activated; Complete Time: 10:34 kb 11/20 09:57 Order name: D-Dimer; Complete Time: 10:34 kb 11/20 10:30 Order name: CBC Smear Scan; Complete Time: 11:03 EDMS 11/20 10:59 Order name: Flu; Complete Time: 11:55 kb 11/20 10:59 Order name: SARS-COV-2 Antigen Rapid; Complete Time: 11:44 kb 11/20 11:39 Order name: BNP; Complete Time: 12:12 kb 11/20 11:47 Order name: Troponin High Sensitivity; Complete Time: 12:30 kb 11/20 12:19 Order name: Troponin High Sensitivity EDMS 11/20 12:19 Order name: Troponin High Sensitivity EDMS 11/20 12:19 Order name: Troponin High Sensitivity EDMS 11/20 13:34 Order name: Lactate Sepsis 2 HR Follow-up; Complete Time: 13:36 EDMS 11/20 09:57 Order name: Chest Single View XRAY; Complete Time: 11:13 kb 11/20 10:34 Order name: CT Chest For PE Angio; Complete Time: 11:24 kb 11/20 11:49 Order name: BIPAP kb 11/20 09:57 Order name: EKG; Complete Time: 09:57 kb 11/20 09:57 Order name: Accucheck; Complete Time: 10:38 kb 11/20 09:57 Order name: Cardiac monitoring; Complete Time: 10:06 kb 11/20 09:57 Order name: EKG - Nurse/Tech; Complete Time: 10:06 kb 11/20 09:57 Order name: IV Saline Lock - Large Bore; Complete Time: 10:06 kb 11/20 09:57 Order name: Labs collected and sent; Complete Time: 10:16 kb 11/20 09:57 Order name: O2 Per Protocol; Complete Time: 10:06 kb 11/20 09:57 Order name: O2 Sat Monitoring; Complete Time: 10:06 kb 11/20 09:57 Order name: Vital Signs; Complete Time: 10:06 kb 11/20 12:56 Order name: Misc. Order: draw and send repeat lactate please; Complete Time: 13:05 kb Administered Medications: 10:15 Drug: Albuterol Inhalation 2.5 mg Inhalation once Route: Inhalation; ko1 11:21 Follow up: Response: No adverse reaction ko1 10:15 Drug: Ipratropium Inhalation Aerosol 0.5 mg Inhalation once Route: Inhalation; ko1 10:15 Drug: MethylPrednisoLONE IVP 125 mg IVP once Route: IVP; Site: left antecubital; ko1 10:30 Follow up: Response: No adverse reaction ko1 11:15 Not Given (Physician Discretion): ns 0.9% 1000 ml IV at 1000 ml once kb 11:21 Drug: Rocephin IV 1 grams IV at calculated rate once; Given slow IV push per pharmacy ko1 instructions Route: IV; Rate: calculated rate; Site: left antecubital; 12:05 Follow up: Response: No adverse reaction; IV Status: Completed infusion; IV Intake: [id number] 11:30 Drug: Zithromax IVPB 500 mg IVPB once over 1 hrs; mix in 250 mL NS Route: IVPB; Infused ko1 Over: 1 hrs; Site: right antecubital; 12:06 Follow up: Response: No adverse reaction; IV Status: Completed infusion; IV Intake: ko1 250ml 11:57 CANCELLED (Duplicate Order): [id number] mg IVP once; give over 2 minutes kb 12:03 Drug: Furosemide IVP 40 mg IVP once; give over 2 minutes Route: IVP; Site: left ko1 antecubital; 12:20 Follow up: Response: No adverse reaction ko1 Disposition Summary: 11/21/23 11:45 Hospitalization Ordered Notes: Hospitalization Status: Inpatient Admission kb Provider: Bailee Cortes Condition: Stable kb Problem: new kb Symptoms: are unchanged kb Bed/Room Type: Standard kb Location: Telemetry/MedSurg (Inpatient)(11/21/23 15:36) bd Room Assignment: [facility](11/21/23 15:36) bd Diagnosis - Acute pulmonary edema kb Forms: - Medication Reconciliation Form kb - SBAR form kb - Leadership Thank You Letter kb Signatures: Dispatcher [employer] EDMS Nila Cunningham, SPECTROGRAPHER-C SPECTROGRAPHER-Ckb Matilde Dee Kelly, RN RN kb3 Jenny Juan, RN RN ko1 Denia Villanueva, RN RN mb9 Corrections: (The following items were deleted from the chart) 11:57 11:47 Furosemide IVP 20 mg IVP once; give over 2 minutes ordered. kb kb 13:31 11:45 Telemetry/MedSurg (Inpatient) kb kb3 13:31 11:45 kb kb3 15:24 13:31 [facility] ER HOLD kb3 bd 15:24 13:31 ERHOLD- kb3 bd 15:25 15:24 Telemetry/MedSurg (Inpatient) bd bd 15:25 15:24 411 bd bd 15:36 15:25 [facility] ER HOLD bd bd 15:36 15:25 ERHOLD- bd bd
--- NOTE | 2023-11-21 11:46 | ER ---
Nurse's Notes [facility] Name: Vinicius Rhoades Age: 63 yrs Sex: Male : 1960 Arrival Date: 11/21/2023 Time: 09:52 Bed 8 Private MD: Diagnosis: Acute pulmonary edema Presentation: 11/20 09:58 Chief complaint: Patient states: "I went to urgent care today and they send me here mb9 because I'm having trouble breathing. It's been going on for the past 5-6 days and got worse today.". Coronavirus screen: Vaccine status: Patient reports receiving the 2nd dose of the covid vaccine. Ebola Screen: No symptoms or risks identified at this time. Initial Sepsis Screen: Does the patient meet any 2 criteria? HR > 90 bpm. Does the patient have a suspected source of infection? No. Patient's initial sepsis screen is negative. Risk Assessment: Do you want to hurt yourself or someone else? Patient reports no desire to harm self or others. Onset of symptoms was November 21, 2023. 09:58 Method Of Arrival: Wheelchair mb9 09:58 Acuity: GAYLA 3 mb9 Triage Assessment: 10:00 Respiratory: Reports shortness of breath at rest. ko1 13:43 General: Appears distressed. Respiratory: Onset: The symptoms/episode began/occurred. ko1 Historical: - Allergies: 09:59 PENICILLINS; mb9 - Home Meds: 09:59 None [Active]; mb9 - PMHx: 09:59 Hypertensive disorder; mb9 - PSHx: 09:59 B knee SX; Appendectomy; mb9 - Immunization history:: Adult Immunizations up to date. - Social history:: Smoking status: Patient reports the use of cigarette tobacco products, smokes one pack cigarettes per day. Screenin:[address] [facility] ED Fall Risk Assessment (Adult) History of falling in the last 3 months, ko1 including since admission No falls in past 3 months (0 pts) Confusion or Disorientation No (0 pts) Intoxicated or Sedated No (0 pts) Impaired Gait No (0 pts) Mobility Assist Device Used No (0 pt) Altered Elimination No (0 pt) Score/Fall Risk Level 0 - 2 = Low Risk Oriented to surroundings, Maintained a safe environment, Educated pt \\T\\ family on fall prevention, incl call for assistance when getting out of bed, Assessed \\T\\ reinforced patient's understanding of fall precautions, Provided non-skid footwear, Hourly rounding (assess needs \\T\\ fall precautionary measures) done, Used ambulatory aids as needed (educated on \\T\\ assisted with), Used gait belt as appropriate. Abuse screen: Denies threats or abuse. Denies injuries from another. Nutritional screening: No deficits noted. Tuberculosis screening: No symptoms or risk factors identified. Assessment: 10:00 General: Appears distressed, ill, Behavior is calm, cooperative, appropriate for age. ko1 Pain: Denies pain. Neuro: No deficits noted. Cardiovascular: Rhythm is sinus tachycardia. Respiratory: Airway is patent Respiratory effort is labored, using tripod position, Respiratory pattern is tachypnea Breath sounds are diminished bilaterally. the patient has severe shortness of breath. GI: No deficits noted. : No deficits noted. EENT: No deficits noted. Derm: No deficits noted. Musculoskeletal: No deficits noted. Vital Signs: 09:58 BP 137 / 96; Pulse 98; Resp 24; Temp 97.5; Pulse Ox 97% on R/A; Weight 68.04 kg; Height mb9 5 ft. 11 in. ; Pain 0/10; 10:00 BP 147 / 96; Pulse 98; Resp 15; Pulse Ox 99% ; ko1 11:22 BP 156 / 106; Pulse 101; Resp 27; Pulse Ox 98% on 2 lpm NC; ko1 15:30 BP 156 / 99; Pulse 99; Resp 20 S; Temp 97.8(TE); Pulse Ox 100% on 2 lpm NC; ko1 09:58 Body Mass Index 20.92 (68.04 kg, 180.34 cm) mb9 09:58 Pain Scale: Adult mb9 ED Course: 09:54 Patient arrived in ED. im 09:55 Dayo Oscar MD is Attending Physician. sp3 09:56 Nila Cunningham FNP-C is [facility]. kb 09:58 Arm band placed on. mb9 09:59 Triage completed. mb9 10:00 EKG done, by ED staff, reviewed by Nila TERRY. aa5 10:05 Initial lab(s) drawn, by tx, sent to lab. Inserted saline lock: 20 gauge in left aa5 antecubital area, using aseptic technique. Blood collected. 10:06 CBC with Diff Sent. ko1 10:06 CMP Sent. ko1 10:06 Protime (+inr) Sent. ko1 10:06 Ptt, Activated Sent. ko1 10:06 D-Dimer Sent. ko1 10:08 Basim Kauffman, RN is Primary Nurse. bp 10:38 Lactate w/ 2H reflex if indic. Sent. ko1 10:38 Blood Culture Adult (2) Sent. ko1 10:57 Notified Nurse Practitioner and/or Physician Senior Net Developer of a critical lab result(s), aa5 Lactate 2.2. 11:02 Chest Single View XRAY In Process Unspecified. EDMS 11:05 CT Chest For PE Angio In Process Unspecified. EDMS 11:09 SARS-COV-2 Antigen Rapid Sent. ko1 11:09 Flu Sent. ko1 11:22 Patient has correct armband on for positive identification. Allergy band placed. Placed ko1 in gown. Bed in low position. Call light in reach. Side rails up X2. Provided Education on: na. Client placed on continuous cardiac and pulse oximetry monitoring. NIBP monitoring applied. monitor and storage bin tender on. Door closed. Noise minimized. Lights dimmed. Warm blanket given. Pillow given. 11:22 No provider procedures requiring assistance completed. ko1 11:24 COVID swab sent to lab. Flu and/or RSV swab sent to lab. ko1 11:44 Bailee Cortes MD is Hospitalizing Provider. kb 11:58 Troponin High Sensitivity Sent. ko1 11:58 BNP Sent. ko1 13:06 BIPAP Sent. ko1 13:43 Patient admitted, IV remains in place. ko1 Administered Medications: 10:15 Drug: Albuterol Inhalation 2.5 mg Inhalation once Route: Inhalation; ko1 11:21 Follow up: Response: No adverse reaction ko1 10:15 Drug: Ipratropium Inhalation Aerosol 0.5 mg Inhalation once Route: Inhalation; ko1 10:15 Drug: MethylPrednisoLONE IVP 125 mg IVP once Route: IVP; Site: left antecubital; ko1 10:30 Follow up: Response: No adverse reaction ko1 11:15 Not Given (Physician Discretion): ns 0.9% 1000 ml IV at 1000 ml once kb 11:21 Drug: Rocephin IV 1 grams IV at calculated rate once; Given slow IV push per pharmacy ko1 instructions Route: IV; Rate: calculated rate; Site: left antecubital; 12:05 Follow up: Response: No adverse reaction; IV Status: Completed infusion; IV Intake: [id number] 11:30 Drug: Zithromax IVPB 500 mg IVPB once over 1 hrs; mix in 250 mL NS Route: IVPB; Infused ko1 Over: 1 hrs; Site: right antecubital; 12:06 Follow up: Response: No adverse reaction; IV Status: Completed infusion; IV Intake: ko1 250ml 11:57 CANCELLED (Duplicate Order): [id number] mg IVP once; give over 2 minutes kb 12:03 Drug: Furosemide IVP 40 mg IVP once; give over 2 minutes Route: IVP; Site: left ko1 antecubital; 12:20 Follow up: Response: No adverse reaction ko1 Medication: 11:22 VIS not applicable for this client. ko1 Intake: 12:05 IV: 50ml; Total: 50ml. ko1 12:06 IV: 250ml; Total: 300ml. ko1 Outcome: 11:45 Decision to Hospitalize by Provider. kb 13:42 Admitted to ER Hold. Please see [facility] for further documentation. ko1 13:42 Condition: improved 13:42 Instructed on the need for admit, 16:02 Patient left the ED. aa5 Signatures: Dispatcher [employer] EDNila Rogel, ELOCUTION TEACHER-C ELOCUTION TEACHER-Maria Antonia Bolivar, RN RN aa5 Basim Kauffman RN RN bp Patel, Setul, MD MD sp3 Jenny Juan RN RN ko1 Denia Villanueva RN RN den9 Sherry Ontiveros Corrections: (The following items were deleted from the chart) 13:28 10:05 Inserted saline lock: 20 gauge in left antecubital area, using aseptic technique. aa5 Blood collected. aa5
[2023-11-21] MEDS ORDERED: FUROSEMIDE 20 MG/ 2ML VIAL ONE ×2 (11:57→12:01)
[2023-11-21] MEDS ORDERED: ACETAMINOPHEN 500 MG TAB PO PRN (12:12)
--- NOTE | 2023-11-21 12:24 | P.HP ---
Certification for Inpatient Patient admitted to: Inpatient With expected LOS: >2 Midnights Patient will require the following post-hospital care: None Practitioner: I am a practitioner with admitting privileges, knowledge of patient current condition, hospital course, and medical plan of care. Services: Services provided to patient in accordance with Admission requirements found in Title 42 Section 412.3 of the Code of Federal Regulations Patient History Date of Service: 11/21/23 Reason for admission: Respiratory distress; acute CHF exacerbation History of Present Illness: Patient is a 63-year-old gentleman came to the hospital with shortness of breath. Patient has a history of tobacco use, but he denies any cardiac history. Patient's was recently in a psych facility because of depression. Patient lives at home with his . He continues to smoke. He states that over the last few days he has been more short of breath. The has been using your child's nebulizer treatments to try to help him with his respiratory status. She is also given him Zithromax that she had leftover from a prior hospitalization as well as prednisone. Patient follows up with Dr. Matamoros's nurse practitioner Kacy Akins. Patient's respiratory status has gradually worsened over the last 24 hours. Patient's was concerned so she brought him into the emergency room. Patient is tachypneic and he is having orthopnea as well as PND, and dyspnea on exertion. Patient will get an echocardiogram done. In the emergency room patient was given diuretics along with steroids and neb treatments. However, patient's respiratory status continued to worsen and he was placed on BiPAP. Patient's CT of the chest reveals bilateral pleural effusions. Patient will continue to be diuresed. Patient will get echocardiogram. At this time, patient will be admitted to the hospital for inpatient hospitalization. Patient did have some respiratory distress. Patient was placed on BiPAP. However, after diuresing patient we will go ahead and try to get weaned off of BiPAP. He looks like he is at a place where he could go to medical floor. Will monitor him closely. On review of the records, patient's only medical history is hypertension. It does appear that patient's respiratory distress is from an acute CHF exacerbation. Physical examination points towards more of congestive heart failure issues and COPD exacerbation. Allergies Penicillins Allergy (Unknown, Unverified 11/21/23 12:34) unknown - Past Medical/Surgical History -: HTN -: TOBACCO ABUSE -: DEPRESSION Past Surgical History: Patient denies surgical history - Family History Father Family History: Reviewed- Non-Contributory - Social History Smoking Status: Current every day smoker Alcohol use: Yes CD- Drugs: No Review of Systems 10-point ROS is otherwise unremarkable Physical Examination - Vital Signs Temperature: 98 F Blood Pressure: 140/90 Pulse: 90 Respirations: 20 Pulse Ox (%): 87 - Physical Exam General: Alert, In no apparent distress, Oriented x3 HEENT: Atraumatic, PERRLA, Mucous membr. moist/pink, EOMI, Sclerae nonicteric Neck: Supple, 2+ carotid pulse no bruit, No LAD, Without JVD or thyroid abnormality Respiratory: Diminished, Crackles/rales Cardiovascular: Regular rate/rhythm, Normal S1 S2, Systolic murmur Gastrointestinal: Normal bowel sounds, Soft and benign, Non-distended, No tenderness Musculoskeletal: No clubbing, No tenderness, Swelling Integumentary: No rashes Neurological: Normal gait, Normal speech, Normal strength at 5/5 x4 extr, Normal tone, Sensation intact, Cranial nerves 3-12 intact, Normal affect Lymphatics: No axilla or inguinal lymphadenopathy - Studies Laboratory Data (last 24 hrs) 11/21/23 11/21/23 11/21/23 10:05 10:05 10:05 WBC 11.90 H Hgb 12.2 L Hct 37.3 L Plt Count 263 PT 12.7 H INR 1.16 APTT 30.3 Sodium 139 Potassium 4.0 BUN 38 H Creatinine 1.27 Glucose 183 H Total Bilirubin 0.4 AST 40 H ALT 53 Alkaline Phosphatase 106 Microbiology Data (last 24 hrs): 11/21/23 11:10 Nasopharnyx Influenza Type A Antigen Screen - Final 11/21/23 11:10 Nasopharnyx Influenza Type B Antigen Screen - Final Assessment & Plan - Problems (Diagnosis) (1) Acute exacerbation of CHF (congestive heart failure) Current Visit: Yes Status: Acute (2) HTN (hypertension) Current Visit: Yes Status: Acute (3) Tobacco abuse Current Visit: Yes Status: Acute (4) Bilateral pleural effusion Current Visit: Yes Status: Acute (5) Type 2 TX (myocardial infarction) Current Visit: Yes Status: Acute (6) Hypoxemia Current Visit: Yes Status: Acute (7) Lactic acidosis Current Visit: Yes Status: Acute - Plan Plan: 1. Patient with acute CHF exacerbation; patient most likely has systolic dysfunction-echocardiogram pending. Patient has distended JVP on examination to the angle of the mandible as well as basilar crackles. Patient has good air entry with minimal expiratory wheezing. Patient had imaging studies which revealed bilateral pleural effusions. Patient's BNP is significantly elevated. Patient also has a type II myocardial infarction with demand ischemia. CT PE was unremarkable, except for pleural effusions. Cardiology consultation and echocardiogram pending. Will continue to diurese the patient and monitor patient's hemodynamics closely. 2. Patient with history of tobacco abuse; patient may have COPD but there is no extensive lung changes on CT scan to indicate - Advance Directives Does patient have a Living Will: No Does patient have a Durable POA for Healthcare: No
[2023-11-21] MEDS: INFLUENZA VACCINE (for 6+ mo) 0.5 ML DOSE IMVAC ONE (14:00)
[2023-11-21] MEDS: ALBUTEROL 2.5 MG/3 ML NEB SOL NEB SCH (14:32)
[2023-11-21] MEDS: IPRATROPIUM BROM 0.5MG/2.5ML NEB SCH (14:32)
[2023-11-21] MEDS: FUROSEMIDE 40 MG/4 ML VIAL IV SCH (16:47)
[2023-11-21] MEDS: METHYLPREDNISOLONE 40 MG INJ IV SCH (16:47)
[2023-11-21] MEDS: POTASSIUM 25 MEQ EFFERV TAB PO SCH (21:13)
[2023-11-22] MEDS: METOPROLOL TAR 50 MG TAB PO SCH (05:43)
[2023-11-22 06:44] LABS: Absolute Lymphocytes (CBC) 0.7 K/uL (0.7-4.9); Absolute Monocytes 0.7 K/uL (0.1-1.3); Absolute Neutrophil 13.9 K/uL (1.8-8.0); Basophils % 0.2 % (0-1.3); Hematocrit 35.9 % (39.6-49.0); Hemoglobin 11.9 g/dL (13.6-17.9); Lymphocytes % 4.3 % (15.3-44.8); MCH 27.8 pg (27.0-35.0); MCHC 33.2 g/dL (32.0-36.0); MCV 83.9 fL (80-100); Monocytes % 4.6 % (3.3-12.3); Neutrophils % 90.9 % (41.7-73.7); Platelets 257 thou/uL (152-406); RBC Red Blood Cell Count 4.28 M/uL (4.33-5.43); Red Cell Distribution Width 15.1 % (12.1-15.2)
[2023-11-22 07:05] LABS: Albumin 3.2 g/dL (3.4-5.0); Albumin/Globulin Ratio 0.8 (1.1-1.8); Anion Gap 9.4 mEq/L (5.0-15.0); Bilirubin Total 0.5 mg/dL (0.2-1.0); Magnesium 2.2 mg/dL (1.6-2.4); Potassium 4.4 mEq/L (3.5-5.1); Protein, Total 7.2 g/dL (6.4-8.2)
[2023-11-22] MEDS: ENOXAPARIN 40 MG/0.4 ML SQ SCH (08:43)
[2023-11-22] MEDS ORDERED: ALBUTEROL 2.5 MG/3 ML NEB SOL NEB PRN (10:09)
--- NOTE | 2023-11-22 10:09 | P.PN ---
Date of Service: 11/22/23 Subjective: Breathing much better today No acute events overnight Reports progressive dyspnea over the last 6 days ROS: 10 point ROS as noted above, otherwise negative Physical exam GEN: Alert, oriented, NAD HEENT: Normal conjunctiva, sclera anicteric CV: Regular rate and rhythm, no edema Pulm: Nonlabored respirations on room air, diminished with bibasilar crackles ABD: Soft, nontender, nondistended MSK: No joint tenderness Integumentary: No rashes Neuro: Normal speech, normal affect Vitals reviewed Problem List Suspected new onset CHFunknown EF Type II myocardial infarction Suspected COPD with exacerbation Tobacco use disorder Plan Suspected new onset CHFunknown EF Type II myocardial infarction Echocardiogram ordered, continue with IV diuresis Cardiology consult in place CT showed findings concerning for volume overload, BNP markedly elevated Improving with diuresis Troponin trended down Suspected COPD with exacerbation As needed nebulizer treatments, continue with steroids Tobacco use disorder Counseled on need for cessation, patient plans on attempting to quit VTE: Lovenox Code: Full Dispo: 1 to 2 days Time Spent Managing Pts Care (In Minutes): 35 <Yasmani Galaviz - Last Filed: 11/22/23 10:05> Patient seen and examined on rounds this morning with CONTINUOUS DRIER HELPER Guillaume. I performed a substantial part of the MDM during this patient's care today as noted above in the plan of care. I agree with plan of care as noted above with the following additions / corrections: symptoms and imaging findings most consistent with CHF, which is new diagnosis for patient echo ordered cardiology consulted continue IV lasix patient reports moderate improvement already trop improving - suspect demand ischemia elevated lactate - secondary to hypoxia / CHF exacerbation <José Becerril - Last Filed: 11/22/23 21:43>
[2023-11-22] MEDS ORDERED: IPRATROPIUM BROM 0.5MG/2.5ML NEB PRN (10:10)
--- NOTE | 2023-11-22 16:45 | P.CNS ---
Date of Consult: 11/22/23 Chief Complaint: Respiratory distress; acute CHF exacerbation History of Present Illness: Patient with PMH of CHF, presented with worsening SOB and DENG for the last few days, denies any other associated symptoms. Allergies Penicillins Allergy (Unknown, Verified 11/21/23 14:52) unknown Home Medications: NK [No Home Meds] 11/21/23 - Past Medical/Surgical History Diabetic: No -: HTN -: TOBACCO ABUSE -: DEPRESSION - Family History Father Family History: Reviewed- Non-Contributory - Social History Smoking Status: Current every day smoker Alcohol use: Yes CD- Drugs: No Place of Residence: Home Review of Systems 10-point ROS is otherwise unremarkable Physical Examination Temp Pulse Resp BP Pulse Ox 99.1 F 79 16 142/78 H 92 11/22/23 16:00 11/22/23 16:00 11/22/23 16:00 11/22/23 16:00 11/22/23 16:00 General: Alert, Oriented x3 HEENT: Atraumatic Neck: Supple Respiratory: Crackles/rales Cardiovascular: No edema, Regular rate/rhythm, Normal S1 S2 Gastrointestinal: Normal bowel sounds - Problems (1) Acute exacerbation of CHF (congestive heart failure) Current Visit: Yes Status: Acute Plan: agree with IV lasix 40 mg BID. Continue to monitor input and output correct electrolytes follow up on echo. (2) HTN (hypertension) Current Visit: Yes Status: Acute Plan: Continue Lopressor 50 mg po BID IV Lasix. (3) Tobacco abuse Current Visit: Yes Status: Acute Plan: advised about cessation, patient says he is quitting.
--- NOTE | 2023-11-22 17:05 | EKG ---
Test Date: 2023-11-21 Test Time: 09:48:59 Station Master: CARYN MEASUREMENT RESULTS: Intervals: Rate: 96 MN: 130 QRSD: 90 QT: 360 QTc: 454 [place]: P: 63 MN: 130 QRS: 74 T: 266 INTERPRETIVE STATEMENTS: Normal sinus rhythm Possible Left atrial enlargement Left ventricular hypertrophy with repolarization abnormality Abnormal ECG Compared to ECG 11/22/2021 19:26:16 Left ventricular hypertrophy now present Early repolarization now present Electronically Signed On 11-22-23 17:01:37 CDT by Jordan Winston
[2023-11-23 06:45] LABS: Anion Gap 8.3 mEq/L (5.0-15.0); Phosphorus 2.2 mg/dL (2.5-4.9); Potassium 4.3 mEq/L (3.5-5.1)
--- NOTE | 2023-11-23 07:08 | ECHO ---
HEIGHT: 5 ft 11 in WEIGHT: 137 lb 0 oz DATE OF STUDY: 11/22/[address]: Bailee Cortes MD 2-DIMENSIONAL: YES M.MODE: YES DOPPLER: YES COLOR FLOW: YES TDS: PORTABLE: YES DEFINITY: BUBBLE STUDY: DIAGNOSIS: CONGESTIVE HEART FAILURE CARDIAC HISTORY: CATHERIZATION: NO SURGERY: NO PROSTHETIC VALVE: NO PACEMAKER: NO MEASUREMENTS (cm) DIASTOLIC (NORMALS) SYSTOLIC (NORMALS) IVSd 1.2 (0.6-1.2) LA Diam 3.4 (1.9-4.0) LVEF 29% LVIDd 5.6 (3.5-5.7) LVIDs 4.9 (2.0-3.5) %FS 14% LVPWd 1.3 (0.6-1.2) Ao Diam 2.9 (2.0-3.7) 2 DIMENSIONAL ASSESSMENT: RIGHT ATRIUM: NORMAL LEFT ATRIUM: ENLARGED RIGHT VENTRICLE: NORMAL LEFT VENTRICLE: DEPRESSED EJECTION FRACTION TRICUSPID VALVE: MILD TRICUSPID REGURGITATION MITRAL VALVE: MILD MITRAL REGURGITATION PULMONIC VALVE: NORMAL AORTIC VALVE: NORMAL PERICARDIAL EFFUSION: NONE AORTIC ROOT: NORMAL LEFT VENTRICULAR WALL MOTION: SEVERE GLOBAL HYPOKINESIS DOPPLER/COLOR FLOW: SEE BELOW COMMENTS: 1. SEVERELY DEPRESSED LEFT VENTRICULAR EJECTION FRACTION 25-30% 2. SEVERE GLOBAL HYPOKINESIS 3. SEVERE DIASTOLIC DYSFUNCTION 4. LEFT ATRIAL ENLARGEMENT 5. MILD MITRAL REGURGITATION 6. MILD TRICUSPID REGURGITATION TECHNOLOGIST: KELLIE AVITIA
[2023-11-23] MEDS: POTASS/SODIUM PHOSPHATE 1 PKT POWD.PACK PO SCH (07:56)
[2023-11-23] MEDS ORDERED: NA CHLORIDE 0.9% 500 ML ONE (10:52)
[2023-11-23] MEDS ORDERED: FENTANYL CITR 100 MCG/2 ML ONE (10:56)
[2023-11-23] MEDS ORDERED: VERAPAMIL HCL 10 MG/4 ML VIAL IV ONE (10:56)
[2023-11-23] MEDS ORDERED: ATROPINE SULF 1 MG/10 ML SYR IV ONE (10:56)
[2023-11-23] MEDS ORDERED: MIDAZOLAM HCL 2 MG/2 ML INJ ONE (10:56)
[2023-11-23] MEDS ORDERED: HEPA 1000U/500MLS 2,000 UNIT/1,000 ML BAG IV ONE (10:56)
[2023-11-23] MEDS ORDERED: HEPARIN 10,000 UNIT/10 ML VIAL IV ONE (10:57)
[2023-11-23] MEDS ORDERED: HEPARIN 5000 UNIT/ML 1 ML VIAL ONE (10:57)
[2023-11-23] MEDS ORDERED: TICAGRELOR 90 MG TABLET PO ONE (10:57)
[2023-11-23] MEDS ORDERED: CLOPIDOGREL 75 MG TABLET ONE (10:57)
[2023-11-23] MEDS ORDERED: LIDOCAINE 1% 20 ML MDV ONE (10:58)
[2023-11-23] MEDS ORDERED: ASPIRIN 325 MG TAB ONE (10:58)
--- NOTE | 2023-11-23 12:17 | P.PN ---
Date of Service: 11/23/23 Subjective: Anxious to go home Concerned about his heart health ROS: 10 point ROS as noted above, otherwise negative Physical exam GEN: Alert, oriented, NAD HEENT: Normal conjunctiva, sclera anicteric CV: Regular rate and rhythm, no edema Pulm: Nonlabored respirations on room air, diminished with bibasilar crackles ABD: Soft, nontender, nondistended MSK: No joint tenderness Integumentary: No rashes Neuro: Normal speech, normal affect Vitals reviewed Problem List Acute decompensated systolic congestive heart failure Type II myocardial infarction Suspected COPD with exacerbation Tobacco use disorder Plan Acute decompensated systolic congestive heart failure Type II myocardial infarction Echocardiogram 11/21 1. SEVERELY DEPRESSED LEFT VENTRICULAR EJECTION FRACTION 25-30% 2. SEVERE GLOBAL HYPOKINESIS 3. SEVERE DIASTOLIC DYSFUNCTION 4. LEFT ATRIAL ENLARGEMENT 5. MILD MITRAL REGURGITATION 6. MILD TRICUSPID REGURGITATION Continue with IV diuresis Cardiology Following-plan for heart catheterization during this hospitalization, likely today Will begin initiating beta-kevin, Entresto, spironolactone Patient will need close outpatient follow-up with cardiology discharge for titration of medications Suspected COPD with exacerbation As needed nebulizer treatments, continue with steroids Tobacco use disorder Counseled on need for cessation, patient plans on attempting to quit VTE: Lovenox Code: Full Dispo: 1 to 2 days Time Spent Managing Pts Care (In Minutes): 35
--- NOTE | 2023-11-23 13:23 | PN ---
Date of Progress Note: 11/23/2023 Subjective: Seen by bedside. Clinically doing well. No chest pain. Breathing is improving. Still has orthopnea and he complains of lower back pain. All other systems reviewed, they were negative. Physical Examination: Vital Signs: Reviewed. Head and Neck: Pupils are equal, reactive to light. Intact eye movements. Mild JVD elevation. Lungs: Crackles in both bases. No accessory muscle use or muscle retraction. Heart: Regular rate and rhythm. No extra sounds. Abdomen: Soft, nontender. Bowel sounds positive. No organomegaly. No masses or hernia. No rigidi ty or rebound. Extremities: No edema, clubbing, or cyanosis. Intact pulses. Skin: No rash. Neurologic: Alert, awake, oriented x3. No acute focal deficits appreciated. Investigations: BUN 46, creatinine 1.33. Assessment/recommendation: 1.Acute systolic heart failure, status post coronary angiogram. He has mild disease of the left cir cumflex and the LAD, but significant disease of the RCA about 70%, but heavily calcified. This coron donna artery disease is not the cause of his low ejection fraction. He will need RCA stented, but need s atherectomy or shock wave lithotripsy. We will plan on treating his heart failure first and improv e his heart function and then we will plan for PCI of the RCA with shock wave lithotripsy in 4 to 6 w eeks to [place]. In the interim, continue IV diuretics and monitor BUN, creatinine, electrolytes, and start the patient on Entresto 24/26 mg twice a day and continue metoprolol. 2.Elevated troponin. He has coronary artery disease as outlined above and we will plan for staged P CI of the RCA once his heart function improves. 3.Acute renal failure due to elevated central venous pressure, improving with diuretics. Continue to monitor. 4.Smoker, he was counseled to quit. SR/MODL Voice ID: [id number] Report ID: [id number]
[2023-11-23 15:02] VITALS: BMI 18.5
--- NOTE | 2023-11-23 19:24 | OP ---
Date of Procedure: 11/23/2023 Surgeon: ASHLEY EMERY Procedures Performed: 1.Selective coronary angiogram. 2.Left heart catheterization. Indication: New-onset systolic heart failure. Access: Right radial artery 6-[place]ican closed with TR band. Complications: None. Bleeding: Less than 50 mL. Anesthesia: Total sedation time was 45 minutes. Description Of Procedure: After risks, benefits, and alternatives were explained, the patient agreed to procedure and signed informed consent. The patient was [facility], prepped and draped in usual sterile fashion. Then, I accessed the right radial artery using pediatric micropuncture kit, placed a 6-[place] Slender sheath and took 5-[place] 4.0 catheter in to the aortic root over a J-wire, engaged the left main and then the right coronary artery, took jennifer dard views. Catheter was pushed over the wire into the LV, measured the LVEDP. Pullback did not rec ord any gradient. Then I removed the catheter and the sheath, placed TR band with good hemostasis. Findings: 1.Left main; large and normal. 2.LAD; large vessel with luminal irregularities throughout with proximal 30% focal, mid 20% to 30%. 3.Left circumflex; large size vessel, proximal 30%, mid 20% to 30%. 4.RCA; large and dominant, mid 50% focal, then 60%, and then before the bifurcation becomes 70% sten osis, heavily calcified. 5.LVEDP elevated at 18 mmHg. Conclusion: 1.Severe distal RCA stenosis, heavily calcified, requires PCI with shockwave. Plan to do it as an o utpatient at [facility] in 4 to 6 weeks. 2.Mild coronary artery disease, otherwise, does not explain his severe systolic heart failure. Recommendations: 1.Guideline directed medical therapy for heart failure. 2.Staged PCI of the RCA with shockwave lithotripsy at [place]. SR/MODL Voice ID: [id number] Report ID: [id number]
[2023-11-23] MEDS: SACUBITRIL/VALSARTAN 24/26 MG TAB PO SCH (21:36)
[2023-11-24 05:16] VITALS: BP 117/62
[2023-11-24 06:12] LABS: Hemoglobin 14.8 g/dL (13.6-17.9); MCH 26.9 pg (27.0-35.0); MCHC 32.1 g/dL (32.0-36.0); MCV 83.8 fL (80-100); MPV 9.1 fL (7.6-11.3); Platelets 330 thou/uL (152-406); RBC Red Blood Cell Count 5.49 M/uL (4.33-5.43); Red Cell Distribution Width 14.9 % (12.1-15.2)
[2023-11-24 06:28] LABS: Anion Gap 7.5 mEq/L (5.0-15.0); Potassium 4.5 mEq/L (3.5-5.1)
[2023-11-24 08:47] VITALS: TEMP 97.9
[2023-11-24 10:37] VITALS: O2SAT 98
--- NOTE | 2023-11-24 13:13 | P.DS ---
Admission Date: 11/21/23 Discharge Date: 11/24/23 Disposition: ROUTINE DISCHARGE Discharge Condition: GOOD Reason for Admission: Respiratory distress; acute CHF exacerbation Consultations: CardiologyDr. Winston Procedures: Heart catheterization 11/22 with severe distal RCA stenosis-very calcified will need shockwave lithotripsy in 4 to 6 weeks with cardiology Brief History of Present Illness: Patient is a 63-year-old gentleman came to the hospital with shortness of breath. Patient has a history of tobacco use, but he denies any cardiac history. Patient's was recently in a psych facility because of depression. Patient lives at home with his . He continues to smoke. He states that over the last few days he has been more short of breath. The has been using your child's nebulizer treatments to try to help him with his respiratory status. She is also given him Zithromax that she had leftover from a prior hospitalization as well as prednisone. Patient follows up with Dr. Matamoros's nurse practitioner Kacy Akins. Patient's respiratory status has gradually worsened over the last 24 hours. Patient's was concerned so she brought him into the emergency room. Patient is tachypneic and he is having orthopnea as well as PND, and dyspnea on exertion. Patient will get an echocardiogram done. In the emergency room patient was given diuretics along with steroids and neb treatments. However, patient's respiratory status continued to worsen and he was placed on BiPAP. Patient's CT of the chest reveals bilateral pleural effusions. Patient will continue to be diuresed. Patient will get echocardiogram. At this time, patient will be admitted to the hospital for inpatient hospitalization. Patient did have some respiratory distress. Patient was placed on BiPAP. However, after diuresing patient we will go ahead and try to get weaned off of BiPAP. He looks like he is at a place where he could go to medical floor. Will monitor him closely. On review of the records, patient's only medical history is hypertension. It does appear that patient's respiratory distress is from an acute CHF exacerbation. Physical examination points towards more of congestive heart failure issues and COPD exacerbation. Hospital Course: Problem List Acute decompensated systolic congestive heart failure Type II myocardial infarction Suspected COPD with exacerbation Tobacco use disorder Patient was admitted to the hospital for respiratory distress, suspected acute congestive heart failure-new onset. On CT he was noted to have bilateral pleural effusions, he required BiPAP on admission. He was diuresed and had significant improvement in his respiratory status. During his hospitalization he had an echocardiogram performed which showed a severely depressed left ventricular ejection fraction of 25 to 30%, severe global hypokinesis, severe diastolic dysfunction, left atrial enlargement, mild mitral and tricuspid regurgitation. Subsequently a left heart catheterization was performed which showed severe distal RCA stenosis which was heavily calcified and required PCI with shockwave. Cardiology plans to perform this as an outpatient at [facility] in 4 to 6 weeks. Today patient is breathing easily on room air, feeling much better and is stable for discharge. Given his new onset CHF and CAD patient will be prescribed the following new medications Entresto 24/26 mg by mouth twice daily Toprol tartrate 50 mg by mouth twice daily Furosemide/Lasix 40 mg by mouth once daily Atorvastatin 40 mg by mouth at bedtime Also recommend taking daily 81 mg aspirin [id number] Please follow-up with your primary care doctor within 1 week Please also follow-up with Dr. Winston the basting marker for further adjustment/addition of medications for heart failure as well as scheduling of the further intervention for the heart in 4 to 6 weeks. Vital Signs/Physical Exam: Temp Pulse Resp BP Pulse Ox 97.9 F 58 15 117/62 98 11/24/23 08:00 11/24/23 08:00 11/24/23 08:00 11/24/23 08:21 11/24/23 08:00 General: Alert, In no apparent distress, Oriented x3 HEENT: Atraumatic, PERRLA Neck: Supple, JVD not distended Respiratory: Clear to auscultation bilaterally, Normal air movement Cardiovascular: Regular rate/rhythm, Normal S1 S2 Gastrointestinal: Normal bowel sounds, No tenderness Musculoskeletal: No tenderness Integumentary: No rashes Neurological: Normal speech, Normal tone, Normal affect Laboratory Data at Discharge: WBC 16.40 thou/uL (4.3-10.9) H 11/24/23 05:15 Hgb 14.8 g/dL (13.6-17.9) 11/24/23 05:15 Hct 46.0 % (39.6-49.0) 11/24/23 05:15 Plt Count 330 thou/uL (152-406) 11/24/23 05:15 PT 12.7 SECONDS (9.5-12.5) H 11/21/23 10:05 INR 1.16 11/21/23 10:05 APTT 30.3 SECONDS (24.3-36.9) 11/21/23 10:05 Sodium 135 mEq/L (136-145) L 11/24/23 05:15 Potassium 4.5 mEq/L (3.5-5.1) 11/24/23 05:15 BUN 44 mg/dL (7-18) H 11/24/23 05:15 Creatinine 1.29 mg/dL (0.70-1.30) 11/24/23 05:15 Glucose 189 mg/dL (74-106) H 11/24/23 05:15 Phosphorus 2.2 mg/dL (2.5-4.9) L 11/23/23 06:21 Magnesium 2.2 mg/dL (1.6-2.4) 11/22/23 06:28 Total Bilirubin 0.5 mg/dL (0.2-1.0) 11/22/23 06:28 AST 20 U/L (15-37) 11/22/23 06:28 ALT 46 U/L (16-61) 11/22/23 06:28 Alkaline Phosphatase 134 U/L (45-117) H D 11/22/23 06:28 Home Medications: Atorvastatin Calcium 40 mg PO BEDTIME #30 tab 11/24/23 Furosemide 40 mg PO DAILY #30 tab 11/24/23 Metoprolol Tartrate 50 mg PO BID #60 tab 11/24/23 Sacubitril/Valsartan [Entresto 24 mg-26 mg Tablet] 1 tab PO BID #60 tab 11/24/23 New Medications: Atorvastatin Calcium 40 mg PO BEDTIME #30 tab Sacubitril/Valsartan [Entresto 24 mg-26 mg Tablet] 1 tab PO BID #60 tab Furosemide 40 mg PO DAILY #30 tab Metoprolol Tartrate 50 mg PO BID #60 tab Physician Discharge Instructions: Physician discharge instructions Patient was admitted to the hospital for respiratory distress, suspected acute congestive heart failure-new onset. On CT he was noted to have bilateral pleural effusions, he required BiPAP on admission. He was diuresed and had significant improvement in his respiratory status. During his hospitalization he had an echocardiogram performed which showed a severely depressed left ventricular ejection fraction of 25 to 30%, severe global hypokinesis, severe diastolic dysfunction, left atrial enlargement, mild mitral and tricuspid regurgitation. Subsequently a left heart catheterization was performed which showed severe distal RCA stenosis which was heavily calcified and required PCI with shockwave. Cardiology plans to perform this as an outpatient at [facility] in 4 to 6 weeks. Today patient is breathing easily on room air, feeling much better and is stable for discharge. Given his new onset CHF and CAD patient will be prescribed the following new medications Entresto 24/26 mg by mouth twice daily Toprol tartrate 50 mg by mouth twice daily Furosemide/Lasix 40 mg by mouth once daily Atorvastatin 40 mg by mouth at bedtime Also recommend taking daily 81 mg aspirin [id number] Please follow-up with your primary care doctor within 1 week Please also follow-up with Dr. Winston the basting marker for further adjustment/addition of medications for heart failure as well as scheduling of the further intervention for the heart in 4 to 6 weeks. Diet: AHA Activity: Ad paola Followup: Olayinka Matamoros MD [Primary Care Provider] - 1 Week (call to schedule an appointment) Jordan Winston MD [ACTIVE - CAN ADMIT] - 1 Week (call to schedule an appointment) Time spent managing pt's care (in minutes): 35
== END 2023-11-24 10:17 | disposition home or self-care (01) | DRG 280 ==
LOC: ER 09:52 → ERHOLD 12:19 → 4TH 15:58
PROVIDERS: ADMIT Hospitalist; ATTEND Hospitalist
PROC: 5A09457 Assistance with Respiratory Ventilation, 24-96 Consecutive Hours, Continuous Positive Airway Pressure (ICD-10-PCS; 2023-11-21)
PROC: 4A023N7 Measurement of Cardiac Sampling and Pressure, Left Heart, Percutaneous Approach (ICD-10-PCS; principal; 2023-11-23)
PROC: B2111ZZ Fluoroscopy of Multiple Coronary Arteries using Low Osmolar Contrast (ICD-10-PCS; 2023-11-23)
DX: I11.0 Hypertensive heart disease with heart failure (principal); I21.A1 Myocardial infarction type 2; I50.23 Acute on chronic systolic (congestive) heart failure; E87.20 Acidosis, unspecified; J44.1 Chronic obstructive pulmonary disease with (acute) exacerbation; I08.1 Rheumatic disorders of both mitral and tricuspid valves; F32.A Depression, unspecified; I25.10 Atherosclerotic heart disease of native coronary artery without angina pectoris; F17.210 Nicotine dependence, cigarettes, uncomplicated; R06.03 Acute respiratory distress; Z88.0 Allergy status to penicillin; Z71.6 Tobacco abuse counseling; Z11.52 Encounter for screening for COVID-19; Z90.49 Acquired absence of other specified parts of digestive tract
CPT/HCPCS: 36415; 71045; 71275; 76937; 80048; 80053; 83605; 83735; 83880; 84100; 84484; 85025; 85027; 85379; 85610; 85730; 87040; 87804; 87811; 93005; 93306; 93458; 94660; 94760; 99152; 99153; 99285; C1893; J0461; J0696; J1644; J1650; J1940; J2001; J2250; J2920; J2930; J3010; J7030; J7040; J7613; J7644; Q9966; Q9967

== ENCOUNTER 2024-10-11 17:11 | Inpatient (IN) | payer OTHER ==
--- OUTSIDE RECORDS SUMMARY | 2024-10-11 17:14 | XMS REPORT | Continuity of Care Document ---
Author Name Unknown Address [address] [facility] [address] [place] [address] [facility] thconnect Address [address] [facility] [place] [address] Care Team Providers Care Senior Biostatistician Name Role Phone Olayinka Matamoros Primary Care Physician [phone] DARREL JACOBSON Attending Clinician Unavailabl e Doctor Unassigned, [place] Attending Clinician U MARCI Sol Attending Clinician UnavailTESSY Avila Attending Clinician Unavailable Tessy Eisenberg Attending Clinician [phone] Darrel Jacobson MD Attending Clinician [phone] Pob, Adc Lab Main Attending Clinician Unavailayde e Only, Adc Test Attending Clinician Unavailable Jakob Ramírez MD Attending Clinician [phone] JAKOB RAMÍREZ Attending Clinician Unavailable CLINT RODRIGUEZ Attending Clinician Unavail able CLINT RODRIGUEZ Attending Clinician Unavail able DARREL JACOBSON Admitting Clinician UnavailMARCI Zapata Admitting Clinician UnavailDarrel Gayle MD Admitting Clinician [phone] Payers Payer Name Policy Type Policy Number Effective Date Expirati on Date Source [facility] [id number] 2021 00:00:00 Problems Condition Name Condition Details Condition Category Status Onset Date Resolution Date Last Treatment Date Treating Clinician Comments Source Left knee pain Left knee pain Disease Active 01-18 00:00: 00 [facility] Left knee pain Left knee pain Disease Active 01-18 00:00: 00 [facility] Osteoarthr itis of left knee, unspecifie d osteoarthr itis type Osteoarthr itis of left knee, unspecifie d osteoarthr itis type Disease Active 01-05 00:00: 00 Overview: Formattin g of this note might be different from the original. Added automatic ally from request for surgery [id number] [facility] Allergies, Adverse Reactions, Alerts Allergy Name Allergy Type Status Severity Reaction(s) Onset Date Inactive Date Treating Clinician Comments Source Penicill ins DA Active U Rash 3-29 00:00: 00 [facility] Penicill ins Propensi ty to adverse reaction s Active Rash 6-28 00:00: 00 [facility] PENICILL INS Drug Class Active Rash 6-28 00:00: 00 [facility] Penicill ins Propensi ty to adverse reaction s Active Rash 6-28 00:00: 00 [facility] Social History Social Habit Start Date Stop Date Quantity Comments Source History SDOH Alcohol Binge [facility] History SDOH Alcohol Comment [facility] History SDOH Alcohol Std Drinks [facility] Exposure to SARS-CoV-2 (event) 2022-01-22 00:00:00 2022-02-01 15:02:00 Not sure [facility] Alcohol intake 2022-02-01 00:00:00 2022-02-01 00:00:00 Lifetime non-drinker (finding) [facility] Tobacco use and exposure 2021-01-05 00:00:00 2021-01-05 00:00:00 Smokeless tobacco non-user [facility] History SDOH Alcohol Frequency 2021-01-05 00:00:00 2021-01-05 00:00:00 1 [facility] Sex Assigned At 1960 00:00:00 1960 00:00:00 [facility] Smoking Status Start Date Stop Date Source Never smoked tobacco [facility] Medications Ordered Medication Name Filled Medication Name Start Date Stop Date Current Medication? Ordering Clinician Indication Dosage Frequency Signature (SIG) Comments Components Source No known medications 02-01 15:05: 53 No No known medication s [facility] traZODone 100 mg tablet 01-18 15:08: 43 Yes 100mg Take 100 mg by mouth at bedtime. [facility] acetaminoph en-codeine (TYLENOL-CO DEINE #3) 300-30 mg tablet 01-18 00:00: 00 Yes 4647 2{tbl} Take 2 tablets by mouth every 6 (six) hours as needed for Pain (scale 4-6) or Pain (scale 7-10). Indication s: acute pain [facility] venlafaxine XR 150 mg 24 hr capsule 12-17 00:00: 00 Yes 150mg Take 150 mg by mouth daily. [facility] Vital Signs Vital Name Observation Time Observation Value Comments S octaviakimberly Systolic blood pressure 2022-02-01 20:05:00 125 mm[Hg] [facility] Diastolic blood pressure 2022-02-01 20:05:00 77 mm[Hg] [facility] Heart rate 2022-02-01 20:05:00 68 /min [facility] Body height 2022-02-01 20:05:00 177.8 cm [facility] Body weight 2022-02-01 20:05:00 70.625 kg [facility] BMI 2022-02-01 20:05:00 22.34 kg/m2 [facility] Oxygen saturation in Arterial blood by Pulse oximetry 2022-02-01 20:05:00 98 /min [facility] Procedures Procedure Date / Time Performed Performing Clinician Source EXTERNAL PROVIDER RECORDS 2023-02-03 05:01:00 Doctor Unassigned, [place] [facility] AUTHORIZATION FOR RELEASE OF PHI 2021-12-23 05:01:00 Doctor Unassigned, [place] [facility] Encounters Start Date/Time End Date/Time Encounter Type Admission Type Attending Clinicians Care Facility Care Department Encounter ID Source 2022-12-20 15:01:27 Outpatient [facility] [id number] [facility] 2022-01-08 10:35:01 Outpatient DARREL GALLAGHER [facility] [id number] [facility] 2021-11-24 14:34:00 Inpatient [facility] [id number] [facility] 2023-02-03 00:00:00 2023-02-03 00:00:00 Orders Only Doctor Unassigned, [place] [facility] 1.2.840.114 350.1.13.10 4.2.7.2.686 [id number] [facility] 2022-12-18 16:39:00 2022-12-19 16:55:00 Emergency E MARCI SANDHU [facility] [address] [facility] 2022-03-03 14:15:00 2022-03-03 14:15:00 Outpatient TESSY YAN [facility] [id number] [facility] 2022-03-03 14:15:00 2022-03-03 14:15:00 Outpatient TESSY YAN [facility] [id number] [facility] 2022-02-01 15:20:00 2022-02-01 23:59:00 Outpatient TESSY YAN [facility] [id number] [facility] 2022-02-01 15:15:00 2022-02-01 16:28:15 Office Visit Tessy Marino [facility] [place] [place] 1..840.114 350.1.13.10 4.2.7.2.686 [id number] [facility] 2022-02-01 15:15:00 2022-02-01 15:15:00 Outpatient TESSY YAN [facility] [id number] [facility] 2022-01-18 06:32:00 2022-01-18 13:35:00 Outpatient R DARREL JACOBSON [facility] SOR [id number] [facility] 2022-01-18 06:32:00 2022-01-18 13:35:00 Hospital Encounter Darrel Jacobson [facility] 1.114 350.1.13.10 4.2.7.2.686 [id number] [facility] 2022-01-18 06:32:00 2022-01-18 13:35:00 Outpatient R DARREL JACOBSON [facility] SOR [id number] [facility] 2022-01-18 07:30:00 2022-01-18 09:54:00 Surgery Darrel Jacobson [facility] 1.114 350.1.13.10 4.2.7.2.686 [id number] [facility] 2022-01-18 00:00:00 2022-01-18 00:00:00 Orders Only Doctor Unassigned, [place] [facility] 1..114 350.1.13.10 4.2.7.2.686 [id number] [facility] 2022-01-15 11:18:16 2022-01-15 23:59:00 Hospital Encounter Darrel Jacobson [facility] 1..114 350.1.13.10 4.2.7.2.686 [id number] [facility] 2022-01-15 11:00:00 2022-01-15 11:15:00 Crossing Gateman Visit Pob, Adc Lab Main Geremias [facility] 1.114 350.1.13.10 4.2.7.2.686 [id number] [facility] 2022-01-15 10:45:00 2022-01-15 11:00:00 Laboratory Only Only, Adc Test Darrel Jacobson [facility] 1.2840.114 350.1.13.10 4.2.7.2.686 [id number] [facility] 2022-01-15 10:45:00 2022-01-15 10:45:00 Outpatient R DARREL JACOBSON [facility] [id number] [facility] 2022-01-15 10:45:00 2022-01-15 10:45:00 Outpatient R DARREL JACOBSON [facility] [id number] [facility] 2022-01-15 00:00:00 2022-01-15 00:00:00 Orders Only Doctor Unassigned, [place] [facility] 1.2840.114 350.1.13.10 4.2.7.2.686 [id number] [facility] 2022-01-11 00:00:00 2022-01-11 00:00:00 Telephone Darrel Jacobson [facility] BU[facility] 1.2.840.114 350.1.13.10 4.2.7.2.686 [id number] [facility] 2022-01-11 00:00:00 2022-01-11 00:00:00 Prep For Surgery Darrel Jacobson [facility] MED[facility] OFF[facility] BU[facility] 1.2.840.114 350.1.13.10 4.2.7.2.686 [id number] [facility] 2022-01-01 10:00:00 2022-01-01 10:28:15 Outpatient TESSY YAN [facility] [id number] [facility] 2022-01-01 10:00:00 2022-01-01 10:28:15 Outpatient TESSY YAN [facility] [id number] [facility] 2022-01-01 10:00:00 2022-01-01 10:15:00 Office Visit Tessy Marino [facility] 1.2.840.114 350.1.13.10 4.2.7.2.686 [id number] [facility] 2022-01-01 10:00:00 2022-01-01 10:00:00 Outpatient Cayetano IRASEMA MARINOTT [facility] [id number] [facility] 2022-01-01 10:00:00 2022-01-01 10:00:00 Outpatient Cayetano TESSY MARINO [facility] [id number] [facility] 2021-12-29 09:00:00 2021-12-29 09:55:11 [facility] 1.2.840.114 350.1.13.10 4.2.7.2.686 [id number] [facility] 2021-12-29 09:00:00 2021-12-29 09:55:11 Outpatient R [facility]RELL[facility]VOFORMERLY [facility] [id number] [facility] 2021-12-29 09:00:00 2021-12-29 09:55:11 Outpatient R DARRELL BARVOFORMERLY [facility] [id number] [facility] 2021-12-29 09:00:00 2021-12-29 09:00:00 Outpatient R DARRELL [facility] [id number] [facility] 2021-12-29 00:00:00 2021-12-29 00:00:00 Orders Only Doctor Unassigned, [place] [facility] 1.2.840.114 350.1.13.10 4.2.7.2.686 [id number] [facility] 2021-12-23 00:00:00 2021-12-23 00:00:00 Orders Only Doctor Unassigned, [place] [facility] 1.2.840.114 350.1.13.10 4.2.7.2.686 [id number] [facility] 2021-12-10 00:00:00 2021-12-10 00:00:00 Telephone Darrel Jacobson [facility] BU[facility] 1.2.840.114 350.1.13.10 4.2.7.2.686 [id number] [facility] 2021-12-03 00:00:00 2021-12-03 00:00:00 [facility] 1.2.840.114 350.1.13.10 4.2.7.2.686 [id number] [facility] 2021-12-01 00:00:00 2021-12-01 00:00:00 Telephone Willi Tessy [facility] [place] 1.2.840.114 350.1.13.10 4.2.7.2.686 [id number] [facility] 2021-11-30 16:20:00 2021-11-30 23:59:00 Outpatient R TESSY MARINO [facility] [id number] [facility] 2021-11-30 16:00:00 2021-11-30 17:25:14 Office Visit Willi [facility] [place] 1.2.840.114 350.1.13.10 4.2.7.2.686 [id number] [facility] 2021-11-30 16:00:00 2021-11-30 17:25:14 Outpatient R TESSY MARINO [facility] [id number] [facility] 2021-11-24 14:34:00 2021-11-24 14:34:00 Emergency [facility] [id number] [facility] 2021-07-14 00:00:00 2021-07-14 00:00:00 Orders Only Doctor Unassigned, [place] [facility] 1.2840.114 350.1.13.10 4.2.7.2.686 [id number] [facility] 2021-06-19 08:50:50 2021-06-19 09:12:45 Office Visit Darrel Jacobson [facility] Medical Office Building 1.284.114 350.1.13.10 4.2.7.2.686 [id number] [facility] 2021-06-19 08:45:00 2021-06-19 08:45:00 Outpatient R INDIRA DARREL [facility] [id number] [facility] 2021-06-19 00:00:00 2021-06-19 00:00:00 Letter (Out) Darrel Jacobson [facility] Medical Office Building 1.840.114 350.1.13.10 4.2.7.2.686 [id number] [facility] 2021-06-12 00:00:00 2021-06-12 00:00:00 Telephone Darrel Jacobson [facility] Medical Office Building 1.84.114 350.1.13.10 4.2.7.2.686 [id number] [facility] 2021-06-11 00:00:00 2021-06-11 00:00:00 Orders Only Doctor Unassigned, [place] [facility] 1.284.114 350.1.13.10 4.2.7.2.686 [id number] [facility] 2021-04-27 09:00:00 2021-04-27 09:00:00 Outpatient CLINT WATKINS DENISE [facility] [id number] [facility] 2021-04-16 10:45:00 2021-04-16 10:45:00 Outpatient R DARREL JACOBSON [facility] [id number] [facility] 2021-04-13 15:30:00 2021-04-13 15:30:00 Outpatient Cayetano DARREL JACOBSON [facility] [id number] [facility] 2021-03-26 09:00:00 2021-03-26 09:00:00 Outpatient R DARREL JACOBSON [facility] [id number] [facility] 2021-03-24 00:00:00 2021-03-24 00:00:00 Orders Only Doctor Unassigned, [place] [facility] 1.2840.114 350.1.13.10 4.2.7.2.686 [id number] [facility] 2021-03-02 00:00:00 2021-03-02 00:00:00 Orders Only Doctor Unassigned, [place] [facility] 1.20.114 350.1.13.10 4.2.7.2.686 [id number] [facility] 2021-02-23 14:42:07 2021-02-23 15:32:16 Office Visit Darrel Jacobson [facility] [place] 1.2.840.114 350.1.13.10 4.2.7.2.686 [id number] [facility] 2021-02-23 15:00:00 2021-02-23 15:00:00 Outpatient R DARREL JACOBSON [facility] [id number] [facility] 2021-02-23 00:00:00 2021-02-23 00:00:00 Letter (Out) Tessy Marino [facility] [place] 1.2.840.114 350.1.13.10 4.2.7.2.686 [id number] [facility] 2021-02-23 00:00:00 2021-02-23 00:00:00 Telephone Tessy Marino [facility] [place] 1.2.840.114 350.1.13.10 4.2.7.2.686 [id number] [facility] 2021-02-16 00:00:00 2021-02-16 00:00:00 Telephone Darrel Jacobson [facility] 1.2.840.114 350.1.13.10 4.2.7.2.686 [id number] [facility] 2021-01-06 00:00:00 2021-01-06 00:00:00 Telephone Willi [facility] [place] 1.2.840.114 350.1.13.10 4.2.7.2.686 [id number] [facility] 2021-01-05 14:59:35 2021-01-05 15:41:48 Office Visit Darrel Jacobson [facility] 1.2.840.114 350.1.13.10 4.2.7.2.686 [id number] [facility] 2021-01-05 15:15:00 2021-01-05 15:15:00 Outpatient R DARREL JACOBSON [facility] [id number] [facility] 2020-12-30 00:00:00 2020-12-30 00:00:00 Orders Only Doctor Unassigned, [place] [facility] 1.2.840.114 350.1.13.10 4.2.7.2.686 [id number] [facility] 2020-12-22 00:00:00 2020-12-22 00:00:00 Telephone Willi [facility] 1.2.840.114 350.1.13.10 4.2.7.2.686 [id number] [facility] 2020-12-22 00:00:00 2020-12-22 00:00:00 Orders Only Doctor Unassigned, [place] [facility] 1.2.840.114 350.1.13.10 4.2.7.2.686 [id number] [facility] 2020-12-11 08:26:01 2020-12-11 23:59:00 Hospital Encounter Darrel Jacobson [facility] [place] 1.2.840.114 350.1.13.10 4.2.7.2.686 [id number] [facility] 2020-12-11 08:02:56 2020-12-11 08:43:22 Office Visit Darrel Jacobson [facility] [place] 1.2.840.114 350.1.13.10 4.2.7.2.686 [id number] [facility] 2020-12-11 08:26:00 2020-12-11 08:26:00 Hospital Encounter Darrel Jacobson [facility] [place] 1.2.840.114 350.1.13.10 4.2.7.2.686 [id number] [facility] 2020-12-11 08:00:00 2020-12-11 08:00:00 Outpatient R DARREL JACOBSON [facility] [id number] [facility] 2020-12-11 00:00:00 2020-12-11 00:00:00 Orders Only Doctor Unassigned, [place] [facility] 1.2.840.114 350.1.13.10 4.2.7.2.686 [id number] [facility] Results Test Description Test Time Test Comments Results Result Co mments Source Complete Blood Count Auto [id number] 15:43:00* Test Item Value Reference Range Interpretation [...] code = NRBCP) 0 % Comprehensive Metabolic [id number] 15:43:00* Test Item Value Reference Range Interpretation [...] = ALP) 94 U/L 46-116 N Drug Screen,[id number] 15:41:00* Test Item Value Reference Range Interpretation [...] = UPROP) Negative Negative UA, Urinalysis Rflx Cult/[id number] 15:41:00* Test Item Value Reference Range Interpretation Comme nts Color,Urine (test code = UCOL) Yellow Yellow Clarity,Urine (test code = UCLAR) Clear Clear Ph, Urine (test code = UPH) 6.0 5.0-9.0 N Specific [place],Urine (test code = USG) 1.010 1.005-1.030 N [...]
--- NOTE | 2024-10-11 18:43 | RAD REPORT ---
EXAMINATION: ONE VIEW CHEST XR CLINICAL INDICATION: Male, 64 years old.,DYSPNEA TECHNIQUE: Frontal chest projection is submitted. Examination is limited by patient positioning and t echnique. COMPARISON: 11/21/2023 FINDINGS: Mildly progressive patchy airspace opacities in the right midlung. Central interstitial prominence an d perihilar hazy opacities are otherwise stable. Stable moderate cardiomegaly. Mild blunting of the right costophrenic angle again seen. No pneumothorax or sizable effusion. Mediastinal contours are u nchanged. IMPRESSION: Mildly progressive findings as above, suggestive of pulmonary edema.
[2024-10-11 19:16] LABS: Absolute Basophils 0.1 K/uL (0-0.5); Absolute Eosinophils 0.3 K/uL (0-0.5); Absolute Lymphocytes (CBC) 2.2 K/uL (0.7-4.9); Absolute Monocytes 0.7 K/uL (0.1-1.3); Absolute Neutrophil 6.2 K/uL (1.8-8.0); Basophils % 0.8 % (0-1.3); Eosinophils % 3.4 % (0-4.4); Hematocrit 35.1 % (39.6-49.0); Hemoglobin 11.6 g/dL (13.6-17.9); Lymphocytes % 23.1 % (15.3-44.8); MCH 27.7 pg (27.0-35.0); MCHC 33.1 g/dL (32.0-36.0); MCV 83.6 fL (80-100); MPV 8.9 fL (7.6-11.3); Neutrophils % 65.7 % (41.7-73.7); Nucleated Red Blood Cells % 0.1 % (0-0); Platelets 269 thou/uL (152-406); RBC Red Blood Cell Count 4.19 M/uL (4.33-5.43); Red Cell Distribution Width 15.4 % (12.1-15.2)
[2024-10-11 19:44] LABS: Albumin/Globulin Ratio 0.7 (1.1-1.8); Anion Gap 8.1 mEq/L (5.0-15.0); Bilirubin Direct 0.2 mg/dL (0-0.2); Bilirubin Indirect, Calculated 0.3 mg/dL (0.2-0.8); Bilirubin Total 0.5 mg/dL (0.2-1.0); Globulin 4.5 g/dL (2.3-3.5); Potassium 5.1 mEq/L (3.5-5.1); Protein, Total 7.5 g/dL (6.4-8.2); Troponin High Sensitivity 45.3 pg/mL (<58.9)
[2024-10-11] MEDS ORDERED: ALBUTEROL 2.5 MG/3 ML NEB SOL NEB PRN (21:22)
[2024-10-11] MEDS ORDERED: IPRATROPIUM BROM 0.5MG/2.5ML NEB PRN (21:22)
[2024-10-11] MEDS ORDERED: ONDANSETRON 4 MG/2 ML VIAL IV PRN (21:22)
--- NOTE | 2024-10-11 21:23 | EDPHYS ---
Physician Documentation [facility] Name: Vinicius Rhoades Age: 64 yrs Sex: Male : 1960 Arrival Date: 10/11/2024 Time: 17:11 Bed 14 Private MD: ED Physician Jonah Umaña HPI: 10/11 21:23 This 64 yrs old Male presents to ER via EMS with complaints of Shortness Of Breath. rt 21:23 Patient presents to dyspnea starting today. Patient was not hypoxic but did improve rt with supplemental O2. Does report a history of congestive heart failure. Denies other acute complaints at this time, symptoms are moderate severity, no other aggravating or alleviating factors.. Historical: - Allergies: 19:04 PENICILLINS; kj2 - PMHx: 19:04 Hypertensive disorder; kj2 - PSHx: 19:04 Appendectomy; B knee SX; kj2 - Immunization history:: Adult Immunizations unknown. - Infectious Disease History:: Denies. - Social history:: Smoking status: unknown. - Family history:: not pertinent. ROS: 21:23 Constitutional: Negative for fever, chills, and weight loss, Cardiovascular: Negative rt for chest pain, palpitations, and edema, Abdomen/GI: Negative for abdominal pain, nausea, vomiting, diarrhea, and constipation, MS/Extremity: Negative for injury and deformity, Skin: Negative for injury, rash, and discoloration, Neuro: Negative for headache, weakness, numbness, tingling, and seizure, 21:23 Respiratory: Positive for cough, shortness of breath, Exam: 21:23 Constitutional: This is a well developed, well nourished patient who is awake, alert, rt and in no acute distress. Head/Face: Normocephalic, atraumatic. Chest/axilla: Normal chest wall appearance and motion. Nontender with no deformity. No lesions are appreciated. Cardiovascular: Regular rate and rhythm with a normal S1 and S2. No gallops, murmurs, or rubs. Normal PMI, no JVD. No pulse deficits. Abdomen/GI: Soft, non-tender, with normal bowel sounds. No distension or tympany. No guarding or rebound. No evidence of tenderness throughout. Skin: Warm, dry with normal turgor. Normal color with no rashes, no lesions, and no evidence of cellulitis. MS/ Extremity: Pulses equal, no cyanosis. Neurovascular intact. Full, normal range of motion. Neuro: Awake and alert, GCS 15, oriented to person, place, time, and situation. Cranial nerves II-XII grossly intact. Motor strength 5/5 in all extremities. Sensory grossly intact. Cerebellar exam normal. Normal gait. 21:23 ECG was reviewed by the Attending Physician. 21:23 Respiratory: Bibasilar crackles, mild respiratory distress, Vital Signs: 18:00 BP 117 / 80; Pulse 73; Resp 20; Pulse Ox 100% on 3 lpm NC; kj2 18:00 Weight 67.13 kg; Height 5 ft. 10 in. ; kj2 19:10 BP 114 / 67; Pulse 79; Resp 20; Pulse Ox 100% on 3 lpm NC; kj2 20:07 BP 101 / 58; Pulse 76; Resp 18; Pulse Ox 100% on 3 lpm NC; kj2 18:00 Body Mass Index 21.24 (67.13 kg, 177.8 cm) kj2 MDM: 17:14 Medical Screening Exam initiated rt 21:25 Differential diagnosis: CHF exacerbation, pneumonia, pneumothorax. Data reviewed: vital rt signs, nurses notes, lab test result(s), EKG, radiologic studies. Consideration of Admission/Observation Patient was admitted/placed on observation. Management of patient was discussed with the following: Hospitalist: Agrees to admit. I considered the following discharge prescriptions or medication management in the emergency department Medications were administered in the Emergency Department. See MAR. Independent interpretation of the following test(s) in the Emergency Department X-Ray: My interpretation is Pulmonary edema syndrome interpretation of x-ray images. Test considered but Not performed: CT: Low suspicion for PE, CT angiogram not indicated. Care significantly affected by the following chronic conditions: Hypertension. Counseling: I had a detailed discussion with the patient and/or guardian regarding the historical points, exam findings, and any diagnostic results supporting the discharge/admit diagnosis, lab results, radiology results, the need for further work-up and treatment in the hospital. Response to treatment: the patient's symptoms have mildly improved after treatment. 10/11 17:14 Order name: Basic Metabolic Panel; Complete Time: 19:52 rt 10/11 17:14 Order name: CBC with Diff; Complete Time: 19:52 rt 10/11 17:14 Order name: LFT's; Complete Time: 19:52 rt 10/11 17:14 Order name: NT PRO-BNP; Complete Time: 19:52 rt 10/11 17:14 Order name: Troponin HS; Complete Time: 19:52 rt 10/11 21:27 Order name: Magnesium EDMS 10/11 21:27 Order name: Phosphorus EDMS 10/11 21:27 Order name: Basic Metabolic Panel EDMS 10/11 21:27 Order name: Basic Metabolic Panel EDMS 10/11 21:27 Order name: CBC with Automated Diff EDMS 10/11 21:27 Order name: CBC with Automated Diff EDMS 10/11 21:27 Order name: Lipid Profile EDMS 10/11 21:27 Order name: Lipid Profile EDMS 10/11 21:27 Order name: NT PRO-BNP EDMS 10/11 21:27 Order name: NT PRO-BNP EDMS 10/12 07:51 Order name: Phosphorus EDMS 10/12 07:51 Order name: Magnesium EDMS 10/12 08:03 Order name: Glucose, Ancillary Testing EDMS 10/12 12:01 Order name: Glucose, Ancillary Testing EDMS 10/11 17:14 Order name: XRAY Chest (1 view); Complete Time: 18:47 rt 10/11 21:27 Order name: Echo with Doppler EDMS 10/11 21:27 Order name: Physical Therapy Consult EDMS 10/11 17:14 Order name: Cardiac monitoring; Complete Time: 19:09 rt 10/11 17:14 Order name: EKG - Nurse/Tech; Complete Time: 19:09 rt 10/11 17:14 Order name: IV Saline Lock; Complete Time: 19:10 rt 10/11 17:14 Order name: Labs collected and sent; Complete Time: 19:10 rt 10/11 17:14 Order name: O2 Per Protocol; Complete Time: 19:10 rt 10/11 17:14 Order name: O2 Sat Monitoring; Complete Time: 19:10 rt EC:23 Rate is 73 beats/min. Rhythm is regular, Normal Sinus Rhythm with No ectopy, LVH with rt repolarization abnormality. QRS [place] is Normal. IA interval is normal. QRS interval is normal. QT interval is normal. No Q waves. Administered Medications: 21:51 Drug: Furosemide IVP 40 mg IVP once; give over 2 minutes Route: IVP; Site: right kj2 antecubital; 10/12 07:00 Follow up: Response: No adverse reaction db Disposition Summary: 10/11/24 21:22 Hospitalization Ordered Notes: Hospitalization Status: Observation rt Provider: Prince Michael rt Condition: Stable rt Problem: an acute exacerbation rt Symptoms: have improved rt Bed/Room Type: Standard rt Location: Telemetry/MedSurg (observation)(10/12/24 15:52) eb Room Assignment: [facility](10/12/24 15:52) Diagnosis - CHF exacerbation rt Forms: - Medication Reconciliation Form rt - SBAR form rt - Leadership Thank You Letter rt Signatures: Dispatcher [employer] EDLiliane Hanna, RN RN cg Traci Hernandez Ryan, MD MD rt Marcelina Zaldivar RN RN kj2 Rachna Ruiz RN db Corrections: (The following items were deleted from the chart) 10/11 17:15 17:15 Chest Single View+RAD.RAD.BRZ ordered. EDOK EDMS 22:19 21:22 Telemetry/MedSurg (observation) rt cg 22:19 21:22 rt cg 10/12 15:52 10/11 22:19 [facility] ER HOLD cg eb 10/12 15:52 10/11 22:19 ERHOLD- cg eb
--- NOTE | 2024-10-11 21:23 | ER ---
Nurse's Notes [facility] Name: Vinicius Rhoades Age: 64 yrs Sex: Male : 1960 Arrival Date: 10/11/2024 Time: 17:11 Bed 14 Private MD: Diagnosis: CHF exacerbation Presentation: 10/11 18:00 Chief complaint: EMS states: SHORTNESS OF BREATH. Coronavirus screen: Client denies kj2 travel out of the [place] in the last 14 days. Ebola Screen: No symptoms or risks identified at this time. Initial Sepsis Screen: Does the patient meet any 2 criteria? No. Patient's initial sepsis screen is negative. Does the patient have a suspected source of infection? No. Patient's initial sepsis screen is negative. Risk Assessment: Do you want to hurt yourself or someone else? Patient reports no desire to harm self or others. Onset of symptoms was October 11, 2024. 18:00 Method Of Arrival: EMS: [facility] kj2 18:00 Acuity: GAYLA 3 kj2 Triage Assessment: 18:00 General: Appears in no apparent distress. Behavior is calm, cooperative. Pain: Denies kj2 pain. Neuro: Level of Consciousness is awake, alert. Cardiovascular: Patient's skin is warm and dry. Respiratory: Reports shortness of breath at rest. GI: No signs and/or symptoms were reported involving the gastrointestinal system. : No signs and/or symptoms were reported regarding the genitourinary system. Historical: - Allergies: 19:04 PENICILLINS; kj2 - PMHx: 19:04 Hypertensive disorder; kj2 - PSHx: 19:04 Appendectomy; B knee SX; kj2 - Immunization history:: Adult Immunizations unknown. - Infectious Disease History:: Denies. - Social history:: Smoking status: unknown. - Family history:: not pertinent. Screenin:00 [facility] ED Fall Risk Assessment (Adult) History of falling in the last 3 months, kj2 including since admission No falls in past 3 months (0 pts) Confusion or Disorientation No (0 pts) Intoxicated or Sedated No (0 pts) Impaired Gait No (0 pts) Mobility Assist Device Used No (0 pt) Altered Elimination No (0 pt) Score/Fall Risk Level 0 - 2 = Low Risk Maintained a safe environment, Hourly rounding (assess needs \T\ fall precautionary measures) done. Abuse screen: Denies threats or abuse. Denies injuries from another. Nutritional screening: No deficits noted. Tuberculosis screening: No symptoms or risk factors identified. Assessment: 18:00 Cardiovascular: Rhythm is sinus rhythm. Respiratory: Airway is patent Respiratory kj2 effort is even. 19:00 Reassessment: Patient appears in no apparent distress at this time. Patient and/or kj2 family updated on plan of care and expected duration. Pain level reassessed. Patient is alert, oriented x 3, equal unlabored respirations, skin warm/dry/pink. 20:07 Reassessment: Patient appears in no apparent distress at this time. Patient and/or kj2 family updated on plan of care and expected duration. Pain level reassessed. Patient is alert, oriented x 3, equal unlabored respirations, skin warm/dry/pink. 21:00 Reassessment: Patient appears in no apparent distress at this time. Patient and/or kj2 family updated on plan of care and expected duration. Pain level reassessed. Patient is alert, oriented x 3, equal unlabored respirations, skin warm/dry/pink. 10/12 07:00 Reassessment: Patient appears in no apparent distress at this time. Patient and/or db family updated on plan of care and expected duration. Pain level reassessed. Patient is alert, oriented x 3, equal unlabored respirations, skin warm/dry/pink. Respiratory: Vital Signs: 10/11 18:00 BP 117 / 80; Pulse 73; Resp 20; Pulse Ox 100% on 3 lpm NC; kj2 18:00 Weight 67.13 kg; Height 5 ft. 10 in. ; kj2 19:10 BP 114 / 67; Pulse 79; Resp 20; Pulse Ox 100% on 3 lpm NC; kj2 20:07 BP 101 / 58; Pulse 76; Resp 18; Pulse Ox 100% on 3 lpm NC; kj2 18:00 Body Mass Index 21.24 (67.13 kg, 177.8 cm) kj2 ED Course: 17:13 Patient arrived in ED. ll1 17:14 Jonah Umaña MD is Attending Physician. rt 17:40 XRAY Chest (1 view) In Process Unspecified. EDMS 18:00 Patient has correct armband on for positive identification. Bed in low position. Call kj2 light in reach. Provided Education on: CALL LIGHT. 18:49 Marcelina Zaldivar, RN is Primary Nurse. kj2 19:03 Triage completed. kj2 19:12 Inserted saline lock: 20 gauge in right antecubital area, using aseptic technique. rk3 19:13 Initial lab(s) drawn, by me, sent to lab. EKG done, by ED staff. rk3 21:22 Prince Rodriguez MD is Hospitalizing Provider. rt 10/12 07:00 Pulse ox on. NIBP on. db 07:00 No provider procedures requiring assistance completed. Patient admitted, IV remains in db place. Administered Medications: 10/11 21:51 Drug: Furosemide IVP 40 mg IVP once; give over 2 minutes Route: IVP; Site: right kj2 antecubital; 10/12 07:00 Follow up: Response: No adverse reaction db Medication: 10/11 19:08 VIS not applicable for this client. kj2 Outcome: 21:22 Decision to Hospitalize by Provider. rt 10/12 07:00 Admitted to ER Hold. Please see [facility] for further documentation. db Condition: stable Instructed on the need for admit, 16:43 Patient left the ED. db Signatures: Dispatcher [employer] EDMS Elli Rubio, RN RN ll1 Rachna Ruiz RN RN db Jonah Umaña MD MD rt Marcelina Zaldivar, RN RN kj2 Hawa Lewis rk3
[2024-10-11] MEDS ORDERED: FUROSEMIDE 40 MG/4 ML VIAL ONE (21:45)
--- NOTE | 2024-10-11 22:11 | P.HP ---
Certification for Inpatient Patient admitted to: Inpatient With expected LOS: >2 Midnights Practitioner: I am a practitioner with admitting privileges, knowledge of patient current condition, hospital course, and medical plan of care. Services: Services provided to patient in accordance with Admission requirements found in Title 42 Section 412.3 of the Code of Federal Regulations Patient History Date of Service: 10/11/24 Reason for admission: Decompensated CHF History of Present Illness: Patient is a 63-year-old male with a past medical history of coronary disease and chronic systolic CHF. Presented to the ER complaining of shortness of breath. Patient denies lower extremity edema orthopnea. He states that he ran out of medications. Patient is known to this hospital. His last cardiac workup was in October 2023. Cardiac cath at the time revealed severe distal RCA stenosis. He states that he never followed up for PCI after that. He is known to cardiology as well. Workup in the ER revealed evidence of pulmonary edema on chest x-ray. His BNP is more than 12,000. He also has evidence of renal insufficiency. Patient be admitted for decompensated CHF with cardiorenal syndrome. Cardiology to be consulted as well. Allergies Penicillins Allergy (Unknown, Verified 11/21/23 14:52) unknown Home Medications: Atorvastatin Calcium 40 mg PO BEDTIME #30 tab 11/24/23 Furosemide 40 mg PO DAILY #30 tab 11/24/23 Metoprolol Tartrate 50 mg PO BID #60 tab 11/24/23 Sacubitril/Valsartan [Entresto 24 mg-26 mg Tablet] 1 tab PO BID #60 tab 11/24/23 - Past Medical/Surgical History Diabetic: No -: HTN -: TOBACCO ABUSE -: DEPRESSION - Social History Alcohol use: Yes CD- Drugs: No Physical Examination - Physical Exam General: Acute distress HEENT: Atraumatic, Normocephalic Respiratory: Diminished Cardiovascular: No edema, Normal pulses, Regular rate/rhythm, Normal S1 S2 Neurological: Normal speech - Studies Laboratory Data (last 24 hrs) 10/11/24 10/11/24 19:06 19:06 WBC 9.50 Hgb 11.6 L Hct 35.1 L Plt Count 269 Sodium 139 Potassium 5.1 BUN 31 H Creatinine 1.49 H Glucose 122 H Total Bilirubin 0.5 AST 32 ALT 33 Alkaline Phosphatase 155 H Assessment and Plan - Problems (Diagnosis) (1) Coronary artery disease Current Visit: Yes Status: Acute (2) NAYANA (acute kidney injury) Current Visit: Yes Status: Acute (3) Acute exacerbation of CHF (congestive heart failure) Current Visit: No Status: Acute (4) HTN (hypertension) Current Visit: No Status: Acute - Plan Assessment 63-year-old male with chronic systolic CHF and untreated RCA coronary disease. He presents with shortness of breath. He has evidence of pulmonary edema on chest x-ray and a BNP more than 12,000. He is being admitted for decompensated CHF and cardiorenal syndrome Acute hypoxemic respiratory failure Acute on chronic systolic CHF NAYANA Coronary artery disease Plan: Will admit inpatient with telemetry Continue diuresis, Lasix 40 mg IV twice daily Monitor ins and out 2D echo Will consult cardiology as well Resume rest of home medications upon reconciliation DVT prophylaxis - Advance Directives Does patient have a Living Will: No Does patient have a Durable POA for Healthcare: No
[2024-10-11 23:53] VITALS: BMI 21.2
[2024-10-12] MEDS ORDERED: HEPARIN 5000 UNIT/ML 1 ML VIAL ONE ×3 (05:39→14:14)
[2024-10-12] MEDS: HEPARIN 5000 UNIT/ML 1 ML VIAL SQ SCH ×2 (05:45→14:00)
[2024-10-12 07:31] LABS: Absolute Basophils 0.1 K/uL (0-0.5); Absolute Eosinophils 0.4 K/uL (0-0.5); Absolute Lymphocytes (CBC) 2.3 K/uL (0.7-4.9); Absolute Monocytes 0.9 K/uL (0.1-1.3); Absolute Neutrophil 7.6 K/uL (1.8-8.0); Basophils % 1.2 % (0-1.3); Eosinophils % 3.5 % (0-4.4); Hematocrit 37.6 % (39.6-49.0); Hemoglobin 12.2 g/dL (13.6-17.9); Lymphocytes % 20.5 % (15.3-44.8); MCH 27.2 pg (27.0-35.0); MCHC 32.5 g/dL (32.0-36.0); MCV 83.5 fL (80-100); MPV 8.8 fL (7.6-11.3); Neutrophils % 66.8 % (41.7-73.7); Platelets 282 thou/uL (152-406); RBC Red Blood Cell Count 4.51 M/uL (4.33-5.43); Red Cell Distribution Width 15.3 % (12.1-15.2)
[2024-10-12 07:51] LABS: Anion Gap 7.7 mEq/L (5.0-15.0); Magnesium 2.1 mg/dL (1.6-2.4); Phosphorus 3.7 mg/dL (2.5-4.9); Potassium 4.7 mEq/L (3.5-5.1)
[2024-10-12] MEDS: FUROSEMIDE 40 MG/4 ML VIAL IV SCH (09:00)
[2024-10-12] MEDS ORDERED: FUROSEMIDE 40 MG/4 ML VIAL ONE (09:31)
--- NOTE | 2024-10-12 10:22 | P.PN ---
Date of Service: 10/12/24 Subjective: Improvement in his dyspnea overnight no other acute events Reports he has been out of his medications for around 1 month now ROS: 10 point ROS as noted above, otherwise negative Physical exam GEN: Alert, oriented, NAD HEENT: Normal conjunctiva, sclera anicteric CV: Regular rate and rhythm, no edema Pulm: Nonlabored respirations on nasal cannula ABD: Soft, nontender, nondistended MSK: No joint tenderness Integumentary: No rashes Neuro: Normal speech, normal affect Vitals reviewed Assessment: Acute on chronic systolic congestive heart failure CAD Hypertension Hyperlipidemia Plan: Acute on chronic systolic congestive heart failure CAD Coronary angiogram 11/23/2023 showed severe distal RCA stenosis, heavily calcified, requires PCI with shockwave. Planned to do it at [facility] 4 to 6 weeks after that heart cath Echo Performed 11/22/2023 showed severely depressed LVEF 25 to 30%, severe global hypokinesis, severe diastolic dysfunction, left atrial enlargement, mild tricuspid and mitral regurg Denies chest pain currently Has not been taking his medications for the last month as he ran out Never did follow-up about heart cath at [facility] after last year's coronary angiogram Cardiology consulted, continue IV diuresis and resume home medications Hypertension Hyperlipidemia Resume home medications DVT PPX: Lovenox Code status: Brass Roller Spent Managing Pts Care (In Minutes): 35
[2024-10-12] MEDS: METOPROLOL XL 100 MG TAB PO ONE (10:30)
[2024-10-12] MEDS: FLU (Fluarix Triv) TS24-25(6MOS UP)/PF 45 MCG/0.5 ML Syringe IM ONE (10:30)
--- NOTE | 2024-10-12 16:00 | P.CNS ---
Date of Consult: 10/12/24 Chief Complaint: Decompensated CHF History of Present Illness: Patient with PMH of combined heart failure presented with worsening SOB, he has not been complaint with medications, denies chest pain, no palpitations, no syncope. Allergies Penicillins Allergy (Unknown, Verified 11/21/23 14:52) unknown Home Medications: Atorvastatin Calcium 40 mg PO BEDTIME #30 tab 11/24/23 Furosemide 40 mg PO DAILY #30 tab 11/24/23 Sacubitril/Valsartan [Entresto 24 mg-26 mg Tablet] 1 tab PO BID #60 tab 11/24/23 Aspirin Chewable [Aspirin Chewable*] 81 mg PO DAILY 10/12/24 Metoprolol Succinate [Toprol Xl*] 100 mg PO DAILY 10/12/24 Metoprolol Tartrate 100 mg PO DAILY 10/12/24 - Past Medical/Surgical History Diabetic: No -: HTN -: TOBACCO ABUSE -: DEPRESSION - Social History Smoking Status: Current every day smoker Alcohol use: Yes CD- Drugs: No Review of Systems 10-point ROS is otherwise unremarkable Physical Examination Temp Pulse Resp BP Pulse Ox 98.0 F 70 20 125/86 99 10/12/24 12:00 10/12/24 12:00 10/12/24 12:00 10/12/24 12:00 10/12/24 12:00 General: Alert, In no apparent distress HEENT: Atraumatic, PERRLA, Mucous membr. moist/pink, EOMI, Sclerae nonicteric Neck: Supple, 2+ carotid pulse no bruit, No LAD, Without JVD or thyroid abnormality Respiratory: Clear to auscultation bilaterally, Normal air movement Cardiovascular: Regular rate/rhythm, Normal S1 S2 Gastrointestinal: Normal bowel sounds, No tenderness Musculoskeletal: No tenderness Integumentary: No rashes Neurological: Normal gait, Normal speech, Normal tone, Normal affect Lymphatics: No axilla or inguinal lymphadenopathy Laboratory Data (last 24 hrs) 10/11/24 10/11/24 19:06 19:06 WBC 9.50 Hgb 11.6 L Hct 35.1 L Plt Count 269 Sodium 139 Potassium 5.1 BUN 31 H Creatinine 1.49 H Glucose 122 H Total Bilirubin 0.5 AST 32 ALT 33 Alkaline Phosphatase 155 H - Problems (1) Acute on chronic combined systolic (congestive) and diastolic (congestive) heart failure Current Visit: Yes Status: Acute Plan: Patient with known combined HF, presented with worsening SHF, echo shows severe global hypokinesis with elevated filling pressures, patient has not been complaint with medications agree with lasix 40 mg IV BID Continue Toprol XL monitor input and output and electrolytes (2) Coronary artery disease Current Visit: Yes Status: Acute Plan: Patient most recent coronary angiogram shows mild LAD with moderate to severe RCA disease, that doesnt explain patient low EF, optimize medications for now outpatient stress test to check on ischemia/infarct and benefit of revascularization Qualifiers: Coronary Disease-Associated Artery/Lesion type: bypass graft, nonautologous biological
[2024-10-12] MEDS: ATORVASTATIN 40 MG TAB PO SCH (20:54)
[2024-10-12] MEDS: SACUBITRIL/VALSARTAN 24/26 MG TAB PO SCH (20:54)
[2024-10-13 04:44] VITALS: O2SAT 90
[2024-10-13] MEDS: METOPROLOL XL 100 MG TAB PO SCH (08:21)
[2024-10-13] MEDS: ASPIRIN 81 MG CHEWABLE TABLET PO SCH (08:26)
[2024-10-13 08:35] LABS: Anion Gap 8.8 mEq/L (5.0-15.0); Potassium 3.8 mEq/L (3.5-5.1)
--- NOTE | 2024-10-13 10:59 | P.DS ---
Admission Date: 10/11/24 Discharge Date: 10/13/24 Disposition: ROUTINE DISCHARGE Discharge Condition: GOOD Reason for Admission: Decompensated CHF Brief History of Present Illness: Patient is a 63-year-old male with a past medical history of coronary disease and chronic systolic CHF. Presented to the ER complaining of shortness of breath. Patient denies lower extremity edema orthopnea. He states that he ran out of medications. Patient is known to this hospital. His last cardiac workup was in October 2023. Cardiac cath at the time revealed severe distal RCA stenosis. He states that he never followed up for PCI after that. He is known to cardiology as well. Workup in the ER revealed evidence of pulmonary edema on chest x-ray. His BNP is more than 12,000. He also has evidence of renal insufficiency. Patient be admitted for decompensated CHF with cardiorenal syndrome. Cardiology to be consulted as well. Hospital Course: Assessment: Acute on chronic systolic congestive heart failure CAD Hypertension Hyperlipidemia Patient had been off of his medications for heart failure for the last month or so, he was admitted to the hospital and diuresed, started back on his medications at reduced dose as his blood pressure was soft. He is stable for discharge and outpatient follow-up with cardiology. He has been send reduced dose for the metoprolol Vital Signs/Physical Exam: Temp Pulse Resp BP Pulse Ox 98.4 F 57 16 98/63 95 10/13/24 08:00 10/13/24 08:00 10/13/24 08:00 10/13/24 08:00 10/13/24 08:00 General: Alert, In no apparent distress, Oriented x3 HEENT: Atraumatic, PERRLA Neck: Supple, JVD not distended Respiratory: Clear to auscultation bilaterally, Normal air movement Cardiovascular: Regular rate/rhythm, Normal S1 S2 Gastrointestinal: Normal bowel sounds Musculoskeletal: No tenderness Integumentary: No rashes Neurological: Normal speech, Normal affect Laboratory Data at Discharge: WBC 11.30 thou/uL (4.3-10.9) H 10/12/24 07:18 Hgb 12.2 g/dL (13.6-17.9) L 10/12/24 07:18 Hct 37.6 % (39.6-49.0) L 10/12/24 07:18 Plt Count 282 thou/uL (152-406) 10/12/24 07:18 Sodium 137 mEq/L (136-145) 10/13/24 07:00 Potassium 3.8 mEq/L (3.5-5.1) D 10/13/24 07:00 BUN 34 mg/dL (7-18) H 10/13/24 07:00 Creatinine 1.43 mg/dL (0.70-1.30) H 10/13/24 07:00 Glucose 131 mg/dL (74-106) H 10/13/24 07:00 Phosphorus 3.7 mg/dL (2.5-4.9) 10/12/24 07:18 Magnesium 2.1 mg/dL (1.6-2.4) 10/12/24 07:18 Total Bilirubin 0.5 mg/dL (0.2-1.0) 10/11/24 19:06 AST 32 U/L (15-37) 10/11/24 19:06 ALT 33 U/L (16-61) 10/11/24 19:06 Alkaline Phosphatase 155 U/L (45-117) H 10/11/24 19:06 Triglycerides 91 mg/dL (<150) 10/12/24 07:18 Cholesterol 189 mg/dL (<200) 10/12/24 07:18 HDL Cholesterol 46 mg/dL (40-60) 10/12/24 07:18 Cholesterol/HDL Ratio 4.11 10/12/24 07:18 Home Medications: Atorvastatin Calcium 40 mg PO BEDTIME #30 tab 11/24/23 Furosemide 40 mg PO DAILY #30 tab 11/24/23 Sacubitril/Valsartan [Entresto 24 mg-26 mg Tablet] 1 tab PO BID #60 tab 11/24/23 Aspirin Chewable [Aspirin Chewable*] 81 mg PO DAILY 10/12/24 Metoprolol Succinate 50 mg PO DAILY #30 tab 10/13/24 New Medications: Metoprolol Succinate 50 mg PO DAILY #30 tab Physician Discharge Instructions: -DC IV and DC home -Follow-up with PCP in 1 to 2 weeks -Follow-up with Cardiology in 1 to 2 weeks -Please call Dr. Cortes at [phone] if any questions regarding hospital stay -Please call nursing station at [phone] if any nursing or medication questions -Return to the emergency room if symptoms worsen Please advise patient to take his Entresto 2-3 hours apart from his other antihypertensives. He should check his blood pressure prior to taking the Entresto. If his systolic blood pressure is less than 110 then he can hold the Entresto. 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 Diet: Low sodium Activity: Fall precautions Followup: NONE,NONE [Primary Care Provider] - Time spent managing pt's care (in minutes): 45
[2024-10-13 12:09] VITALS: BP 92/51; TEMP 97.6
--- NOTE | 2024-10-15 07:00 | ECHO ---
HEIGHT: 5 ft 10 in WEIGHT: 148 lb 0 oz DATE OF STUDY: 10/12/[address]: Prince Genaro Rodriguez MD 2-DIMENSIONAL: YES M.MODE: YES DOPPLER: YES COLOR FLOW: YES TDS: PORTABLE: DEFINITY: BUBBLE STUDY: DIAGNOSIS: CONGESTIVE HEART FAILURE EXACERBATION CARDIAC HISTORY: CATHERIZATION: SURGERY: PROSTHETIC VALVE: PACEMAKER: MEASUREMENTS (cm) DIASTOLIC (NORMALS) SYSTOLIC (NORMALS) IVSd 1.2 (0.6-1.2) LA Diam 2.6 (1.9-4.0) LVEF 15-20% LVIDd 5.5 (3.5-5.7) LVIDs 5.0 (2.0-3.5) %FS 9% LVPWd 1.3 (0.6-1.2) Ao Diam 3.1 (2.0-3.7) 2 DIMENSIONAL ASSESSMENT: RIGHT ATRIUM: NORMAL LEFT ATRIUM: MILD DILATED RIGHT VENTRICLE: NORMAL LEFT VENTRICLE: MODERATE DILATED TRICUSPID VALVE: MILD TRICUSPID REGURGITATION MITRAL VALVE: MODERATE MITRAL REGURGITATION PULMONIC VALVE: NORMAL AORTIC VALVE: NORMAL PERICARDIAL EFFUSION: NONE AORTIC ROOT: NORMAL LEFT VENTRICULAR WALL MOTION: SEVERE GLOBAL HYPOKINESIS DOPPLER/COLOR FLOW: GRADE III DIASTOLIC DYSFUNCTION COMMENTS: 1. SEVERELY REDUCED LEFT VENTRICULAR SYSTOLIC FUNCTION, EJECTION FRACTION 15-20%, SEVERE GLOBAL HYPOKINESIS 2. GRADE III DIASTOLIC DYSFUNCTION 3. MODERATE MITRAL REGURGITATION 4. ELEVATED FILLING PRESSURE (RIGHT ATRIUM 15-20 mmHg) TECHNOLOGIST: KELLIE AVITIA
== END 2024-10-13 12:06 | disposition home or self-care (01) | DRG 291 ==
LOC: ER 17:11 → ERHOLD 21:22 → 2ND 10-12 16:27
PROVIDERS: ADMIT Internal Medicine; ATTEND Hospitalist
DX: I11.0 Hypertensive heart disease with heart failure (principal); I50.43 Acute on chronic combined systolic (congestive) and diastolic (congestive) heart failure; J96.01 Acute respiratory failure with hypoxia; N17.9 Acute kidney failure, unspecified; I25.810 Atherosclerosis of coronary artery bypass graft(s) without angina pectoris; E78.5 Hyperlipidemia, unspecified; N28.9 Disorder of kidney and ureter, unspecified; Z88.0 Allergy status to penicillin; Z79.82 Long term (current) use of aspirin; Z90.49 Acquired absence of other specified parts of digestive tract; Z79.899 Other long term (current) drug therapy; Z91.148 Patient's other noncompliance with medication regimen for other reason
CPT/HCPCS: 36415; 71045; 80048; 80061; 80076; 82947; 83735; 83880; 84100; 84484; 85025; 93005; 93306; 96374; 97161; 97530; 99285; J1644; J1940

== ENCOUNTER 2024-10-29 14:59 | Inpatient (IN) | payer OTHER ==
--- OUTSIDE RECORDS SUMMARY | 2024-10-29 15:02 | XMS REPORT | Continuity of Care Document ---
Author Name Unknown Address [address] [place] [address] [facility] thconnect Address [address] [place] [address] Care Team Providers Care Permanent Waver Name Role Phone Olayinka Matamoros Primary Care Physician [phone] DARREL JACOBSON Attending Clinician Unavailabl e Doctor Unassigned, [place] Attending Clinician U MARCI Sol Attending Clinician UnavailTESSY Avila Attending Clinician Unavailable Tessy Eisenberg Attending Clinician [phone] Darrel Jacobson MD Attending Clinician [phone] Pob, Adc Lab Main Attending Clinician Unavailayde e Only, Adc Test Attending Clinician Unavailable Jakob Ramírez MD Attending Clinician [phone] JAKOB RAMÍREZ Attending Clinician Unavailable CLINT RODRIGUEZ Attending Clinician Unavail able CLINT RODRIGUEZ Attending Clinician Unavail able DARREL JACOBSON Admitting Clinician MARCI Julian Admitting Clinician UnavailDarrel Gayle MD Admitting Clinician [phone] Payers Payer Name Policy Type Policy Number Effective Date Expirati on Date Source [facility] [id number] 2021 00:00:00 Problems Condition Name Condition Details Condition Category Status Onset Date Resolution Date Last Treatment Date Treating Clinician Comments Source Left knee pain Left knee pain Disease Active 01-18 00:00: 00 [facility] Left knee pain Left knee pain Disease Active 01-18 00:00: 00 [facility] Osteoarthr itis of left knee, unspecifie d osteoarthr itis type Osteoarthr itis of left knee, unspecifie d osteoarthr itis type Disease Active 01-05 00:00: 00 Overview: Formattin g of this note might be different from the original. Added automatic ally from request for surgery [id number] [facility] Allergies, Adverse Reactions, Alerts Allergy Name Allergy Type Status Severity Reaction(s) Onset Date Inactive Date Treating Clinician Comments Source Penicill ins DA Active U Rash 3-29 00:00: 00 [facility] Penicill ins Propensi ty to adverse reaction s Active Rash 6-28 00:00: 00 [facility] PENICILL INS Drug Class Active Rash 6-28 00:00: 00 [facility] Penicill ins Propensi ty to adverse reaction s Active Rash 6-28 00:00: 00 [facility] Social History Social Habit Start Date Stop Date Quantity Comments Source History SDOH Alcohol Binge [facility] History SDOH Alcohol Comment [facility] History SDOH Alcohol Std Drinks [facility] Exposure to SARS-CoV-2 (event) 2022-01-22 00:00:00 2022-02-01 15:02:00 Not sure [facility] Alcohol intake 2022-02-01 00:00:00 2022-02-01 00:00:00 Lifetime non-drinker (finding) [facility] Tobacco use and exposure 2021-01-05 00:00:00 2021-01-05 00:00:00 Smokeless tobacco non-user [facility] History SDOH Alcohol Frequency 2021-01-05 00:00:00 2021-01-05 00:00:00 1 [facility] Sex Assigned At 1960 00:00:00 1960 00:00:00 [facility] Smoking Status Start Date Stop Date Source Never smoked tobacco [facility] Medications Ordered Medication Name Filled Medication Name Start Date Stop Date Current Medication? Ordering Clinician Indication Dosage Frequency Signature (SIG) Comments Components Source No known medications 02-01 15:05: 53 No No known medication s [facility] traZODone 100 mg tablet 01-18 15:08: 43 Yes 100mg Take 100 mg by mouth at bedtime. [facility] acetaminoph en-codeine (TYLENOL-CO DEINE #3) 300-30 mg tablet 01-18 00:00: 00 Yes 4647 2{tbl} Take 2 tablets by mouth every 6 (six) hours as needed for Pain (scale 4-6) or Pain (scale 7-10). Indication s: acute pain [facility] venlafaxine XR 150 mg 24 hr capsule 12-17 00:00: 00 Yes 150mg Take 150 mg by mouth daily. [facility] Vital Signs Vital Name Observation Time Observation Value Comments S octaviakmiberly Systolic blood pressure 2022-02-01 20:05:00 125 mm[Hg] [facility] Diastolic blood pressure 2022-02-01 20:05:00 77 mm[Hg] [facility] Heart rate 2022-02-01 20:05:00 68 /min [facility] Body height 2022-02-01 20:05:00 177.8 cm [facility] Body weight 2022-02-01 20:05:00 70.625 kg [facility] BMI 2022-02-01 20:05:00 22.34 kg/m2 [facility] Oxygen saturation in Arterial blood by Pulse oximetry 2022-02-01 20:05:00 98 /min [facility] Procedures Procedure Date / Time Performed Performing Clinician Source EXTERNAL PROVIDER RECORDS 2023-02-03 05:01:00 Doctor Unassigned, [place] [facility] AUTHORIZATION FOR RELEASE OF PHI 2021-12-23 05:01:00 Doctor Unassigned, [place] [facility] Encounters Start Date/Time End Date/Time Encounter Type Admission Type Attending Clinicians Care Facility Care Department Encounter ID Source 2022-12-20 15:01:27 Outpatient [facility] [id number] [facility] 2022-01-08 10:35:01 Outpatient DARREL GALLAGHER [facility] [id number] [facility] 2021-11-24 14:34:00 Inpatient [facility] [id number] [facility] 2023-02-03 00:00:00 2023-02-03 00:00:00 Orders Only Doctor Unassigned, [place] [facility] 1.2.840.114 350.1.13.10 4.2.7.2.686 [id number] [facility] 2022-12-18 16:39:00 2022-12-19 16:55:00 Emergency E MARCI SANDHU [facility] [id number] [facility] 2022-03-03 14:15:00 2022-03-03 14:15:00 Outpatient TESSY YAN [facility] [id number] [facility] 2022-03-03 14:15:00 2022-03-03 14:15:00 Outpatient TESSY YAN [facility] [id number] [facility] 2022-02-01 15:20:00 2022-02-01 23:59:00 Outpatient TESSY YAN [facility] [id number] [facility] 2022-02-01 15:15:00 2022-02-01 16:28:15 Office Visit Tessy Marino [facility] 1..840.114 350.1.13.10 4.2.7.2.686 [id number] [facility] 2022-02-01 15:15:00 2022-02-01 15:15:00 Outpatient TESSY YAN [facility] [id number] [facility] 2022-01-18 06:32:00 2022-01-18 13:35:00 Outpatient R DARREL JACOBSON [facility] SOR [id number] [facility] 2022-01-18 06:32:00 2022-01-18 13:35:00 Hospital Encounter Darrel Jacobson [facility] 1.114 350.1.13.10 4.2.7.2.686 [id number] [facility] 2022-01-18 06:32:00 2022-01-18 13:35:00 Outpatient R DARREL JACOBSON [facility] SOR [id number] [facility] 2022-01-18 07:30:00 2022-01-18 09:54:00 Surgery Darrel Jacobson [facility] 1.114 350.1.13.10 4.2.7.2.686 [id number] [facility] 2022-01-18 00:00:00 2022-01-18 00:00:00 Orders Only Doctor Unassigned, [place] [facility] 1..114 350.1.13.10 4.2.7.2.686 [id number] [facility] 2022-01-15 11:18:16 2022-01-15 23:59:00 Hospital Encounter Darrel Jacobson [facility] 1..114 350.1.13.10 4.2.7.2.686 [id number] [facility] 2022-01-15 11:00:00 2022-01-15 11:15:00 Instrumentation Technician Visit Pob, Adc Lab Main Geremias Jacobsonpolo Alvarez [facility] 1.114 350.1.13.10 4.2.7.2.686 [id number] [facility] 2022-01-15 10:45:00 2022-01-15 11:00:00 Laboratory Only Only, Adc Test Darrel Jacobson [facility] 1.2840.114 350.1.13.10 4.2.7.2.686 [id number] [facility] 2022-01-15 10:45:00 2022-01-15 10:45:00 Outpatient R DARREL JACOBSON [facility] [id number] [facility] 2022-01-15 10:45:00 2022-01-15 10:45:00 Outpatient R DARREL JACOBSON [facility] [id number] [facility] 2022-01-15 00:00:00 2022-01-15 00:00:00 Orders Only Doctor Unassigned, [place] [facility] 1.2840.114 350.1.13.10 4.2.7.2.686 [id number] [facility] 2022-01-11 00:00:00 2022-01-11 00:00:00 Telephone Darrel Jacobson [facility] 1.2.840.114 350.1.13.10 4.2.7.2.686 [id number] [facility] 2022-01-11 00:00:00 2022-01-11 00:00:00 Prep For Surgery Darrel Jacobson [facility] 1.2.840.114 350.1.13.10 4.2.7.2.686 [id number] [facility] 2022-01-01 10:00:00 2022-01-01 10:28:15 Outpatient TESSY YAN [facility] [id number] [facility] 2022-01-01 10:00:00 2022-01-01 10:28:15 Outpatient TESSY YAN [facility] [id number] [facility] 2022-01-01 10:00:00 2022-01-01 10:15:00 Office Visit Tessy Marino [facility] 1.2.840.114 350.1.13.10 4.2.7.2.686 [id number] [facility] 2022-01-01 10:00:00 2022-01-01 10:00:00 Outpatient Cayetano IRASEMA MARINOTT [facility] [id number] [facility] 2022-01-01 10:00:00 2022-01-01 10:00:00 Outpatient Cayetano TESSY MARINO [facility] [id number] [facility] 2021-12-29 09:00:00 2021-12-29 09:55:11 [facility] 1.2.840.114 350.1.13.10 4.2.7.2.686 [id number] [facility] 2021-12-29 09:00:00 2021-12-29 09:55:11 Outpatient R DARRELLBRAVOCOUNT [facility]CLUDES [facility] [id number] [facility] 2021-12-29 09:00:00 2021-12-29 09:55:11 Outpatient R DARRELL BRAVOCOUNT INCLUDES [facility] [id number] [facility] 2021-12-29 09:00:00 2021-12-29 09:00:00 Outpatient R DARRELL BRAVOCOUNT INCLUDES THE [facility] [id number] [facility] 2021-12-29 00:00:00 2021-12-29 00:00:00 Orders Only Doctor Unassigned, [place] [facility] 1.2.840.114 350.1.13.10 4.2.7.2.686 [id number] [facility] 2021-12-23 00:00:00 2021-12-23 00:00:00 Orders Only Doctor Unassigned, [place] [facility] 1.2.840.114 350.1.13.10 4.2.7.2.686 [id number] [facility] 2021-12-10 00:00:00 2021-12-10 00:00:00 Telephone Darrel Jacobson [facility] 1.2.840.114 350.1.13.10 4.2.7.2.686 [id number] [facility] 2021-12-03 00:00:00 2021-12-03 00:00:00 [facility] (Out[facility] 1.2.840.114 350.1.13.10 4.2.7.2.686 [id number] [facility] 2021-12-01 00:00:00 2021-12-01 00:00:00 Telephone Willi Tessy [facility] 1.2.840.114 350.1.13.10 4.2.7.2.686 [id number] [facility] 2021-11-30 16:20:00 2021-11-30 23:59:00 Outpatient R TESSY MARINO [facility] [id number] [facility] 2021-11-30 16:00:00 2021-11-30 17:25:14 Office Visit Willi [facility] 1.2.840.114 350.1.13.10 4.2.7.2.686 [id number] [facility] 2021-11-30 16:00:00 2021-11-30 17:25:14 Outpatient R TESSY MARINO [facility] [id number] [facility] 2021-11-24 14:34:00 2021-11-24 14:34:00 Emergency [facility] [id number] [facility] 2021-07-14 00:00:00 2021-07-14 00:00:00 Orders Only Doctor Unassigned, [place] [facility] 1.2840.114 350.1.13.10 4.2.7.2.686 [id number] [facility] 2021-06-19 08:50:50 2021-06-19 09:12:45 Office Visit Darrel Jacobson [facility] Medical Office Building 1.284.114 350.1.13.10 4.2.7.2.686 [id number] [facility] 2021-06-19 08:45:00 2021-06-19 08:45:00 Outpatient R INDIRA DARREL [facility] [id number] [facility] 2021-06-19 00:00:00 2021-06-19 00:00:00 Letter (Out) Darrel Jacobson [facility] Building 1.840.114 350.1.13.10 4.2.7.2.686 [id number] [facility] 2021-06-12 00:00:00 2021-06-12 00:00:00 Telephone Darrel Jacobson [facility] Medical Office Building 1.84.114 350.1.13.10 4.2.7.2.686 [id number] [facility] 2021-06-11 00:00:00 2021-06-11 00:00:00 Orders Only Doctor Unassigned, [place] [facility] 1.284.114 350.1.13.10 4.2.7.2.686 [id number] [facility] 2021-04-27 09:00:00 2021-04-27 09:00:00 Outpatient CLINT WATKINS DENISE [facility] [id number] [facility] 2021-04-16 10:45:00 2021-04-16 10:45:00 Outpatient R DARREL JACOBSON [facility] [id number] [facility] 2021-04-13 15:30:00 2021-04-13 15:30:00 Outpatient Cayetano DARREL JACOBSON [facility] [id number] [facility] 2021-03-26 09:00:00 2021-03-26 09:00:00 Outpatient R DARREL JACOBSON [facility] [id number] [facility] 2021-03-24 00:00:00 2021-03-24 00:00:00 Orders Only Doctor Unassigned, [place] [facility] 1.2840.114 350.1.13.10 4.2.7.2.686 [id number] [facility] 2021-03-02 00:00:00 2021-03-02 00:00:00 Orders Only Doctor Unassigned, [place] [facility] 1.20.114 350.1.13.10 4.2.7.2.686 [id number] [facility] 2021-02-23 14:42:07 2021-02-23 15:32:16 Office Visit Darrel Jacobson [facility] [place] 1.2.840.114 350.1.13.10 4.2.7.2.686 [id number] [facility] 2021-02-23 15:00:00 2021-02-23 15:00:00 Outpatient R DARREL JACOBSON [facility] [id number] [facility] 2021-02-23 00:00:00 2021-02-23 00:00:00 Letter (Out) Tessy Marino [facility] [place] 1.2.840.114 350.1.13.10 4.2.7.2.686 [id number] [facility] 2021-02-23 00:00:00 2021-02-23 00:00:00 Telephone Tessy Marino [facility] Specialnorma [facility] 1.2.840.114 350.1.13.10 4.2.7.2.686 [id number] [facility] 2021-02-16 00:00:00 2021-02-16 00:00:00 Telephone Darrel Jacobson [facility] 1.2.840.114 350.1.13.10 4.2.7.2.686 [id number] [facility] 2021-01-06 00:00:00 2021-01-06 00:00:00 Telephone Willi [facility] Specialnorma N[place] 1.2.840.114 350.1.13.10 4.2.7.2.686 [id number] [facility] 2021-01-05 14:59:35 2021-01-05 15:41:48 Office Visit Darrel Jacobson [facility] 1.2.840.114 350.1.13.10 4.2.7.2.686 [id number] [facility] 2021-01-05 15:15:00 2021-01-05 15:15:00 Outpatient R DARREL JACOBSON [facility] [id number] [facility] 2020-12-30 00:00:00 2020-12-30 00:00:00 Orders Only Doctor Unassigned, [place] [facility] 1.2.840.114 350.1.13.10 4.2.7.2.686 [id number] [facility] 2020-12-22 00:00:00 2020-12-22 00:00:00 Telephone Willi [facility] 1.2.840.114 350.1.13.10 4.2.7.2.686 [id number] [facility] 2020-12-22 00:00:00 2020-12-22 00:00:00 Orders Only Doctor Unassigned, [place] [facility] 1.2.840.114 350.1.13.10 4.2.7.2.686 [id number] [facility] 2020-12-11 08:26:01 2020-12-11 23:59:00 Hospital Encounter Darrel Jacobson [facility] es [place] 1.2.840.114 350.1.13.10 4.2.7.2.686 [id number] [facility] 2020-12-11 08:02:56 2020-12-11 08:43:22 Office Visit Darrel Jacobson [facility] [place] 1.2.840.114 350.1.13.10 4.2.7.2.686 [id number] [facility] 2020-12-11 08:26:00 2020-12-11 08:26:00 Hospital Encounter Darrel Jacobson [facility] h[facility]ctor [place] 1.2.840.114 350.1.13.10 4.2.7.2.686 [id number] [facility] 2020-12-11 08:00:00 2020-12-11 08:00:00 Outpatient R DARREL JACOBSON [facility] [id number] [facility] 2020-12-11 00:00:00 2020-12-11 00:00:00 Orders Only Doctor Unassigned, [place] [facility] 1.2.840.114 350.1.13.10 4.2.7.2.686 [id number] [facility] Results Test Description Test Time Test Comments Results Result Co mments Source Complete Blood Count Auto [id number] 15:43:00* Test Item Value Reference Range Interpretation [...] code = NRBCP) 0 % Comprehensive Metabolic [id number] 15:43:00* Test Item Value Reference Range Interpretation [...] = ALP) 94 U/L 46-116 N Drug Screen,[id number] 15:41:00* Test Item Value Reference Range Interpretation [...] = UPROP) Negative Negative UA, Urinalysis Rflx Cult/[id number] 15:41:00* Test Item Value Reference Range Interpretation Comme nts Color,Urine (test code = UCOL) Yellow Yellow Clarity,Urine (test code = UCLAR) Clear Clear Ph, Urine (test code = UPH) 6.0 5.0-9.0 N Specific [place],Urine (test code = USG) 1.010 1.005-1.030 N [...]
[2024-10-29] MEDS ORDERED: ALBUTEROL 2.5 MG/3 ML NEB SOL ONE (15:46)
[2024-10-29] MEDS ORDERED: IPRATROPIUM BROM 0.5MG/2.5ML ONE (15:46)
[2024-10-29 15:50] LABS: Absolute Basophils 0.1 K/uL (0-0.5); Absolute Eosinophils 0.1 K/uL (0-0.5); Absolute Lymphocytes (CBC) 2.1 K/uL (0.7-4.9); Absolute Monocytes 0.7 K/uL (0.1-1.3); Absolute Neutrophil 6.7 K/uL (1.8-8.0); Basophils % 1.1 % (0-1.3); Hematocrit 38.7 % (39.6-49.0); Hemoglobin 12.7 g/dL (13.6-17.9); Lymphocytes % 21.3 % (15.3-44.8); MCHC 32.7 g/dL (32.0-36.0); MCV 82.7 fL (80-100); MPV 9.3 fL (7.6-11.3); Monocytes % 7.5 % (3.3-12.3); Neutrophils % 69.1 % (41.7-73.7); Nucleated Red Blood Cells % 0.1 % (0-0); Platelets 305 thou/uL (152-406); RBC Red Blood Cell Count 4.68 M/uL (4.33-5.43); Red Cell Distribution Width 15.8 % (12.1-15.2)
[2024-10-29 16:00] LABS: PT Prothrombin Time 13.8 SECONDS (10.0-13.0); PTT, Activated Partial Thromb 33.4 SECONDS (24.3-36.9); Protime INR 1.22
[2024-10-29 16:07] LABS: Influenza A Ag Negative; Influenza B Ag Negative; SARS-CoV-2 Antigen Rapid Res Negative (Negative)
--- NOTE | 2024-10-29 16:43 | RAD REPORT ---
EXAM: Chest Single View HISTORY: 64 years Male DYSPNEA COMPARISON: 10/11/2024 FINDINGS: LUNGS/PLEURA: Diffuse prominence of the pulmonary interstitium which is nonspecific. No consolidative airspace disease or audrey pulmonary edema identified.. CARDIAC/MEDIASTINUM: Mild cardiomegaly UPPER ABDOMEN: No significant abnormality. BONES: No acute abnormality. LINES/TUBES/OTHER: N/A IMPRESSION: Mild improved aeration of the lungs which may reflect some modest improvement in interstitial edema.
[2024-10-29 17:09] LABS: Anion Gap 8.9 mEq/L (5.0-15.0); Magnesium 2.3 mg/dL (1.6-2.4); Potassium 4.9 mEq/L (3.5-5.1); Troponin High Sensitivity 19.8 pg/mL (<58.9)
[2024-10-29] MEDS ORDERED: FUROSEMIDE 40 MG/4 ML VIAL ONE (17:34)
--- NOTE | 2024-10-29 18:29 | EDPHYS ---
Physician Documentation [facility] – [place], [place] Name: Vinicius Rhoades Age: 64 yrs Sex: Male : 1960 Arrival Date: 10/29/2024 Time: 14:59 Bed 18 Private MD: ED Physician Clive Becerril HPI: 10/29 15:12 This 64 yrs old Male presents to ER via Unassigned with complaints of Breathing sb4 Difficulty. 15:12 Patient reports shortness of breath that began last night. He states that this happens sb4 when "fluid fills up in his lungs "secondary to his heart failure. He reports compliance with his Entresto and Lasix. He states that he does follow fluid restriction guidelines as well. He denies any swelling of his legs or arms. Denies any chest pain. Just feels that he cannot catch his breath. Historical: - Allergies: 15:03 PENICILLINS; aa5 - PMHx: 15:03 Hypertensive disorder; aa5 - PSHx: 15:03 Appendectomy; B knee SX; aa5 - Immunization history:: Adult Immunizations unknown. - Infectious Disease History:: Denies. - Social history:: Smoking status: Patient reports the use of cigarette tobacco products. ROS: 15:12 Constitutional: Negative for fever, chills, and weight loss, sb4 15:12 Respiratory: Positive for shortness of breath, at rest. 15:12 All other systems are negative, Exam: 15:12 Head/Face: Normocephalic, atraumatic. Eyes: Extra-ocular motions intact. Periorbital sb4 areas with no swelling, redness, or edema. ENT: Mucous membranes moist. Cardiovascular: Regular rate and rhythm with a normal S1 and S2. Abdomen/GI: Soft, non-tender, no distension. Skin: Warm, dry with normal turgor. Normal color with no rashes, no lesions, and no evidence of cellulitis. 15:12 Constitutional: The patient appears alert, awake, in obvious distress, moderately distressed, 15:12 Respiratory: mild respiratory distress is noted, Respirations: labored breathing, tachypnea, that is moderate, Breath sounds: are clear throughout, 15:13 Cardiovascular: Edema: is not appreciated, sb4 Vital Signs: 15:03 BP 150 / 83; Pulse 67; Resp 26 S; Temp 98(TE); Pulse Ox 98% on R/A; Weight 63.5 kg (R); aa5 Height 5 ft. 10 in. (R); 17:38 Pulse 62; Resp 22; Pulse Ox 94% on R/A; ll1 20:28 BP 121 / 61; Pulse 60; Resp 18; Pulse Ox 95% ; cp4 15:03 Body Mass Index 20.09 (63.50 kg, 177.8 cm) aa5 MDM: 15:04 Medical Screening Exam initiated sb4 19:28 Data reviewed: vital signs, nurses notes, lab test result(s), EKG, radiologic studies, sb4 I have discussed the patient's presentation/case with the attending Emergency Department Physician; and as a result, I will admit patient. Consideration of Admission/Observation Patient was admitted/placed on observation. Care significantly affected by the following chronic conditions: Hypertension, Congestive Heart Failure. Counseling: I had a detailed discussion with the patient and/or guardian regarding the historical points, exam findings, and any diagnostic results supporting the discharge/admit diagnosis, the presence of at least one elevated blood pressure reading (>120/80) during this emergency department visit, lab results, radiology results, the need for further work-up and treatment in the hospital. 10/29 15:09 Order name: BMP; Complete Time: 17:09 4 10/29 15:09 Order name: CBC with Diff; Complete Time: 15:52 sb4 10/29 15:09 Order name: Magnesium; Complete Time: 17:09 sb 10/29 15:09 Order name: NT PRO-BNP; Complete Time: 17:09 sb4 10/29 15:09 Order name: PT-INR; Complete Time: 16:01 sb4 10/29 15:09 Order name: Ptt, Activated; Complete Time: 16:01 sb4 10/29 15:09 Order name: Troponin HS; Complete Time: 17:09 sb 10/29 15:09 Order name: COVID-19 Ag + Flu A+B Ag; Complete Time: 16:07 sb4 10/29 19:33 Order name: Magnesium EDMD 10/29 19:33 Order name: Phosphorus EDMD 10/29 19:33 Order name: Basic Metabolic Panel [facility] 10/29 19:33 Order name: Basic Metabolic Panel [facility] 10/29 19:33 Order name: CBC with Automated Diff EDMS 10/29 19:33 Order name: CBC with Automated Diff EDMS 10/29 19:33 Order name: NT PRO-BNP EDMS 10/29 19:33 Order name: NT PRO-BNP EDMS 10/29 19:33 Order name: Troponin High Sensitivity EDMD 10/30 12:37 Order name: Glucose, Ancillary Testing EDMD 10/29 15:09 Order name: XRAY CXR (1 view); Complete Time: 16:44 sb4 10/30 11:46 Order name: US EDMD 10/29 15:09 Order name: Cardiac monitoring; Complete Time: 15:43 sb4 10/29 15:09 Order name: EKG - Nurse/Tech; Complete Time: 15:43 sb4 10/29 15:09 Order name: IV Saline Lock; Complete Time: 15:40 sb4 10/29 15:09 Order name: Labs collected and sent; Complete Time: 15:40 sb4 10/29 15:09 Order name: O2 Per Protocol; Complete Time: 15:21 sb4 10/29 15:09 Order name: O2 Sat Monitoring; Complete Time: 15:21 sb4 10/29 15:53 Order name: Misc. Order: recollect green top; Complete Time: 15:55 sb4 10/29 16:10 Order name: Labs - recollect needed: recollect green top again; Complete Time: 16:44 bd EC:48 Rate is 60 beats/min. Rhythm is regular, Normal Sinus Rhythm. MI interval is normal at sb4 156 msec. QRS interval is normal at 88 msec. QT interval is normal at 440 msec. Clinical impression: Normal ECG. Interpreted by me. Reviewed by me. Administered Medications: 15:56 Drug: DuoNeb Nebulize (3:1) (2.5 mg - 0.5 mg) 3 ml Nebulizer once Route: Nebulizer; aa5 16:44 Follow up: Response: No adverse reaction ll1 17:38 Drug: Furosemide IVP 40 mg IVP once; give over 2 minutes Route: IVP; Site: right ll1 forearm; 20:29 Follow up: Response: No adverse reaction cp4 Disposition: 10/30 20:42 Co-signature as Attending Physician, Clive Becerril MD. rn Disposition Summary: 10/29/24 18:28 Hospitalization Ordered Notes: Hospitalization Status: Inpatient Admission sb4 Provider: Prince Michael sb4 Condition: Fair sb4 Problem: an acute exacerbation sb4 Symptoms: are unchanged sb4 Bed/Room Type: Standard sb4 Location: Telemetry/MedSurg (Inpatient)(10/30/24 15:01) bd Room Assignment: 204(10/30/24 15:01) bd Diagnosis - Acute pulmonary edema sb4 - Acute on chronic systolic (congestive) heart failure sb4 - Dyspnea sb4 Discharge Instructions: - Discharge Summary Sheet sb4 Forms: - Medication Reconciliation Form sb4 - SBAR form sb4 - Leadership Thank You Letter sb4 Signatures: Dispatcher [employer] EDMS Matilde Dee bd Clive Becerril MD MD rn Yovany, Maria Antonia RN RN aa5 Ninfa White RN RN Liliane Escobar RN RN Elli Vicente RN RN ll1 Georgia Sommer PA-C PAKemal sb4 Teresa Robertson cp4 Corrections: (The following items were deleted from the chart) 10/29 15:10 15:10 COVID-19 Ag + Flu A+B Ag+I.LAB.BRZ ordered. EDMS EDMS 19:54 18:28 Telemetry/MedSurg (Inpatient) sb4 cg 19:54 18:28 sb4 10/30 14:02 0303 19:54 [facility] ER HOLD cg bd 10/30 14:02 0303 19:54 ERHOLD- cg bd 10/30 14:14 14:02 Telemetry/MedSurg (Inpatient) bd ss 14:14 14:02 430 bd ss 15:01 14:14 [facility] ER HOLD ss bd 15:01 14:14 ERHOLD- ss bd
--- NOTE | 2024-10-29 18:29 | ER ---
Nurse's Notes [facility] Name: Vinicius Rhoades Age: 64 yrs Sex: Male : 1960 Arrival Date: 10/29/2024 Time: 14:59 Bed 18 Private MD: Diagnosis: Acute pulmonary edema;Acute on chronic systolic (congestive) heart failure;Dyspnea Presentation: 10/29 15:03 Chief complaint: Patient states: SOB, reports being seen here approximately 2 weeks ago aa5 for CHF exacerbation. 15:03 Coronavirus screen: shortness of breath. Ebola Screen: Patient denies travel to an aa5 Ebola-affected area in the 21 days before illness onset. Initial Sepsis Screen: Does the patient meet any 2 criteria? RR > 20 per min. Does the patient have a suspected source of infection? No. Patient's initial sepsis screen is negative. Risk Assessment: Do you want to hurt yourself or someone else? Patient reports no desire to harm self or others. Onset of symptoms was October 29, 2024. 15:03 Acuity: GAYLA 3 aa5 15:03 Method Of Arrival: Wheelchair aa5 Historical: - Allergies: 15:03 PENICILLINS; aa5 - PMHx: 15:03 Hypertensive disorder; aa5 - PSHx: 15:03 Appendectomy; B knee SX; aa5 - Immunization history:: Adult Immunizations unknown. - Infectious Disease History:: Denies. - Social history:: Smoking status: Patient reports the use of cigarette tobacco products. Screenin:41 [facility] ED Fall Risk Assessment (Adult) History of falling in the last 3 months, ll1 including since admission No falls in past 3 months (0 pts) Confusion or Disorientation No (0 pts) Intoxicated or Sedated No (0 pts) Impaired Gait Yes (1 pt) Mobility Assist Device Used Yes (1 pt) Altered Elimination Yes (1 pt) Score/Fall Risk Level 3 or more points = High Risk Maintained a safe environment, Hourly rounding (assess needs \T\ fall precautionary measures) done. Abuse screen: Denies threats or abuse. Nutritional screening: No deficits noted. Tuberculosis screening: No symptoms or risk factors identified. Assessment: 15:35 General: Appears uncomfortable, Behavior is calm, cooperative, appropriate for age. ll1 Pain: Denies pain. Cardiovascular: Reports shortness of breath. Respiratory: Reports shortness of breath Airway is patent Trachea midline Respiratory effort is labored, Respiratory pattern is symmetrical, tachypnea Breath sounds with wheezes bilaterally. 16:44 Reassessment: No changes from previously documented assessment. Patient and/or family ll1 updated on plan of care and expected duration. Pain level reassessed. Patient is alert, oriented x 3, equal unlabored respirations, skin warm/dry/pink. 20:28 Cardiovascular: Rhythm is regular. cp4 Vital Signs: 15:03 BP 150 / 83; Pulse 67; Resp 26 S; Temp 98(TE); Pulse Ox 98% on R/A; Weight 63.5 kg (R); aa5 Height 5 ft. 10 in. (R); 17:38 Pulse 62; Resp 22; Pulse Ox 94% on R/A; ll1 20:28 BP 121 / 61; Pulse 60; Resp 18; Pulse Ox 95% ; cp4 15:03 Body Mass Index 20.09 (63.50 kg, 177.8 cm) aa5 ED Course: 15:00 Patient arrived in ED. im 15:02 Georgia Sommer PA-C is PHCP. sb4 15:02 Clive Becerril MD is Attending Physician. sb4 15:03 Arm band placed on Patient placed in an exam room, on a stretcher. aa5 15:12 Triage completed. aa5 15:15 Provided Education on: ER procedures and process. ll1 15:21 Elli Rubio, RN is Primary Nurse. ll1 15:32 Missed attempt(s): 22 gauge in right antecubital area. Bleeding controlled, band aid ll1 applied, catheter tip intact. 15:35 Initial lab(s) drawn, by id, sent to lab. Inserted saline lock: 22 gauge in right ll1 forearm, using aseptic technique. Blood collected. Flushed with 10 mL NS. 15:40 COVID-19 Ag + Flu A+B Ag Sent. ll1 15:49 COVID-19 Ag + Flu A+B Ag Sent. ll1 16:18 XRAY CXR (1 view) In Process Unspecified. EDMS 18:28 Prince Rodriguez MD is Hospitalizing Provider. sb4 18:41 Patient has correct armband on for positive identification. Bed in low position. Client ll1 placed on continuous cardiac and pulse oximetry monitoring. NIBP monitoring applied. 03 00:20 No provider procedures requiring assistance completed. Patient admitted, IV remains in cp4 place. 07:33 Primary Nurse role handed off by Elli Rubio RN bd 15:32 Shirley Harden, RN is Primary Nurse. jl7 Administered Medications: 10/29 15:56 Drug: DuoNeb Nebulize (3:1) (2.5 mg - 0.5 mg) 3 ml Nebulizer once Route: Nebulizer; aa5 16:44 Follow up: Response: No adverse reaction ll1 17:38 Drug: Furosemide IVP 40 mg IVP once; give over 2 minutes Route: IVP; Site: right ll1 forearm; 20:29 Follow up: Response: No adverse reaction cp4 Medication: 18:41 VIS not applicable for this client. ll1 Outcome: 18:28 Decision to Hospitalize by Provider. sb4 10/30 00:20 Admitted to ER Hold. [facility]. cp4 Condition: stable Instructed on the need for admit, 15:32 Patient left the ED. jl7 Signatures: Dispatcher [employer] EDMS Matilde Dee Audri RN MICHELLE aa5 Shirley Harden, RN RN jl7 Elli Rubio RN RN ll1 Georgia Sommer PA-C PAKemal sb4 Sherry Ontiveros Christina cp4 Corrections: (The following items were deleted from the chart) 10/29 15:14 15:03 BP 150 / 83; Pulse 67bpm; Resp 26bpm; Spontaneous; Pulse Ox 98% RA; Temp 98F aa5 Temporal; aa5
[2024-10-29] MEDS ORDERED: ALBUTEROL 2.5 MG/3 ML NEB SOL NEB PRN (19:29)
[2024-10-29] MEDS: FUROSEMIDE 40 MG/4 ML VIAL IV SCH (19:29)
[2024-10-29] MEDS ORDERED: ONDANSETRON 4 MG/2 ML VIAL IV PRN (19:29)
[2024-10-29] MEDS ORDERED: IPRATROPIUM BROM 0.5MG/2.5ML NEB PRN (19:29)
--- NOTE | 2024-10-29 19:36 | P.HP ---
Certification for Inpatient Patient admitted to: Inpatient With expected LOS: >2 Midnights Practitioner: I am a practitioner with admitting privileges, knowledge of patient current condition, hospital course, and medical plan of care. Services: Services provided to patient in accordance with Admission requirements found in Title 42 Section 412.3 of the Code of Federal Regulations Patient History Date of Service: 10/29/24 Reason for admission: Shortness of breath History of Present Illness: Patient is a 64-year-old male with a known past medical history of combined systolic and diastolic CHF and multiple admissions for CHF exacerbation. He is well-known to this hospital system. He returns to the hospital complaining of shortness of breath and orthopnea. He has no lower extremity edema. He has a BNP of more than 25,000. He has chronic pulmonary edema. Chest x-ray during this admission actually reveals mild improvement of lung aeration. During my evaluation, patient was telling me he had fluid in his lung. Allergies Penicillins Allergy (Unknown, Verified 11/21/23 14:52) unknown Home Medications: Atorvastatin Calcium 40 mg PO BEDTIME #30 tab 11/24/23 Furosemide 40 mg PO DAILY #30 tab 11/24/23 Sacubitril/Valsartan [Entresto 24 mg-26 mg Tablet] 1 tab PO BID #60 tab 11/24/23 Aspirin Chewable [Aspirin Chewable*] 81 mg PO DAILY 10/12/24 Metoprolol Succinate 50 mg PO DAILY #30 tab 10/13/24 - Past Medical/Surgical History Diabetic: No -: HTN -: TOBACCO ABUSE -: DEPRESSION - Social History Alcohol use: Yes CD- Drugs: No Physical Examination - Physical Exam General: Cachectic, Acute distress HEENT: Atraumatic, Normocephalic Respiratory: Diminished, Crackles/rales Cardiovascular: No edema, Normal pulses, Regular rate/rhythm, Normal S1 S2 Neurological: Normal speech - Studies Laboratory Data (last 24 hrs) 10/29/24 10/29/24 10/29/24 16:43 15:36 15:36 WBC 9.80 Hgb 12.7 L Hct 38.7 L Plt Count 305 PT 13.8 H INR 1.22 APTT 33.4 Sodium 138 Potassium 4.9 BUN 36 H Creatinine 1.47 H Glucose 139 H Magnesium 2.3 Assessment and Plan - Problems (Diagnosis) (1) NAYANA (acute kidney injury) Current Visit: No Status: Acute (2) Acute on chronic combined systolic (congestive) and diastolic (congestive) heart failure Current Visit: No Status: Acute (3) Bilateral pleural effusion Current Visit: No Status: Acute (4) Coronary artery disease Current Visit: No Status: Acute (5) HTN (hypertension) Current Visit: No Status: Acute - Plan Assessment This is a 63-year-old male with chronic systolic and diastolic CHF and untreated right coronary artery disease. He returns to the hospital with shortness of breath and orthopnea. Patient's BNP is more than 27,000. He had multiple admissions for decompensated CHF and cardiorenal syndrome. Acute on chronic combined systolic and diastolic CHF Coronary artery disease NAYANA Plan: Will admit inpatient with telemetry Continue Lasix 40 mg IV twice daily Monitor ins and outs No need to repeat echocardiogram since he just had one recently Will go ahead and consult cardiology due to his history of untreated coronary disease. Was supposed to have outpatient stress test and cardiac workup Resume home meds upon reconciliation DVT prophylaxis - Advance Directives Does patient have a Living Will: No Does patient have a Durable POA for Healthcare: No
[2024-10-29 21:02] VITALS: BMI 21.4
[2024-10-29 21:15] LABS: Magnesium 2.1 mg/dL (1.6-2.4); Phosphorus 3.4 mg/dL (2.5-4.9)
[2024-10-29] MEDS: HEPARIN 5000 UNIT/ML 1 ML VIAL SQ SCH (22:00)
[2024-10-29] MEDS ORDERED: HEPARIN 5000 UNIT/ML 1 ML VIAL ONE (22:13)
[2024-10-30 04:52] LABS: Absolute Eosinophils 0.5 K/uL (0-0.5); Absolute Lymphocytes (CBC) 2.9 K/uL (0.7-4.9); Absolute Monocytes 0.9 K/uL (0.1-1.3); Absolute Neutrophil 6.5 K/uL (1.8-8.0); Basophils % 0.3 % (0-1.3); Eosinophils % 4.4 % (0-4.4); Hematocrit 38.5 % (39.6-49.0); Hemoglobin 13.1 g/dL (13.6-17.9); Lymphocytes % 26.8 % (15.3-44.8); MCH 27.6 pg (27.0-35.0); MCHC 34.1 g/dL (32.0-36.0); MPV 9.6 fL (7.6-11.3); Neutrophils % 60.5 % (41.7-73.7); Nucleated Red Blood Cells % 0.1 % (0-0); Platelets 301 thou/uL (152-406); RBC Red Blood Cell Count 4.76 M/uL (4.33-5.43); Red Cell Distribution Width 15.6 % (12.1-15.2)
[2024-10-30] MEDS ORDERED: HEPARIN 5000 UNIT/ML 1 ML VIAL ONE ×2 (08:34→14:34)
[2024-10-30] MEDS ORDERED: FUROSEMIDE 40 MG/4 ML VIAL ONE (08:35)
[2024-10-30] MEDS: ASPIRIN 81 MG CHEWABLE TABLET PO SCH (09:00)
[2024-10-30] MEDS ORDERED: METOPROLOL XL 50 MG TAB PO SCH (09:00)
[2024-10-30] MEDS: FLU (Fluarix Triv) TS24-25(6MOS UP)/PF 45 MCG/0.5 ML Syringe IM ONE (10:06)
--- NOTE | 2024-10-30 11:45 | RAD REPORT ---
EXAMINATION: US RENAL ULTRASOUND CLINICAL INDICATION: NAYANA TECHNIQUE: Real-time ultrasonography of the abdomen was performed. COMPARISON: No prior exam. FINDINGS: RIGHT KIDNEY: Right renal length measurement: 8.8 x 4.5 cm. Increased echogenicity noted. Several laya ign cysts present largest measuring 2.8 cm. LEFT KIDNEY: Left renal length measurement: 10.5 x 4.6 cm. Increased echogenicity noted. Several smal l benign cysts. URINARY BLADDER: Incompletely distended without gross abnormality detected. ADDITIONAL FINDINGS: None. IMPRESSION: Mild bilateral echogenic kidneys compatible with underlying medical renal disease.
--- NOTE | 2024-10-30 12:13 | EKG ---
Test Date: 2024-10-29 Test Time: 15:46:56 Imaging Assistant: VERONICA MEASUREMENT RESULTS: Intervals: Rate: 60 OR: 156 QRSD: 88 QT: 440 QTc: 440 [place]: P: 76 OR: 156 QRS: 77 T: -72 INTERPRETIVE STATEMENTS: Normal sinus rhythm Possible Left atrial enlargement Left ventricular hypertrophy with repolarization abnormality Abnormal ECG Compared to ECG 10/11/2024 18:14:42 No significant changes Electronically Signed On 10-30-24 12:10:45 [employer] by Montez Castro
[2024-10-30] MEDS ORDERED: ASPIRIN EC 81 MG TAB PO ONE (14:34)
--- NOTE | 2024-10-30 17:09 | CON ---
Date of Consultation: 10/30/2024 Reason For Consultation: Elevated BUN and creatinine. History Of Present Illness: This is a 64-year-old gentleman with significant past medical history of congestive heart failure, systolic and diastolic, ejection fraction of 20%; hypertension; hyperlipid emia; poor compliant. The patient recently admitted to the hospital with CHF exacerbation. The jj ent came complaining from shortness of breath. According to him, he has been compliant with his medi cation, did not miss any of his diuresis. The patient was found to be hypoxemic. Past Medical History: Includes: 1. Hypertension. 2. Hyperlipidemia. 3. Congestive heart failure, combined systolic and diastolic, ejection fraction of 20%. 4. Chronic kidney disease, baseline creatinine 1.5. Home Medications: Include Entresto, Lasix, atorvastatin, aspirin, and metoprolol. Past Surgical History: Negative. Social History: Active alcohol, active smoker. Denied drugs abuse. Family History: Positive for hypertension. Review of Systems: Head and Neck: No red eye. No ear pain. GI: No nausea, no vomiting. : No polyuria, no dysuria, no hematuria. County Nurse: Not applicable. Respiratory: Has shortness of breath. Cardiovascular: Has orthopnea. Endocrine: No polydipsia. Skin: No rash. Neuro: Has neuropathy. Musculoskeletal: No joint pain. Physical Examination: Vital Signs: Blood pressure 138/77, pulse of 56, afebrile. Chest: Crackles bilateral. Heart: S1, S2. Systolic murmur. Abdomen: Soft, nontender. Extremities: No edema. Neuro: Alert. No focality. Laboratory Data: Hemoglobin back in September at 12.2, creatinine 1.4, GFR of 55. On this admission, WBC 9.8, hemoglobin 12.7 yesterday. Sodium 138, potassium 4.9, bicarb 24, BUN 36, creatinine 1.4, G FR 53, calcium 8.7, magnesium 2.3. BNP 27,000 today. Sodium 139, potassium 4, bicarb 26, BUN 36, cr eatinine 1.5, GFR of 51, calcium 8.8. Current Medications: The patient on include heparin, aspirin, atorvastatin, metoprolol, Lasix 40 b.i .d. Renal ultrasound was done today, 8.8/10.5, echogenic. No hydronephrosis. Assessment And Plan: 1. Acute kidney injury on chronic kidney disease stage IIIA secondary to cardiorenal syndrome, overvo lume. I am going to go ahead and start the patient on Lasix and we will monitor. Okay to resume Ent magali. 2. Hypertension. Continue to utilize blood pressure for more diuresis. 3. Chronic kidney disease with acute kidney injury as above. We will send for PTH and renal ultrasou nd to evaluate the chronicity. 4. Congestive heart failure with exacerbation. We will optimize fluid status as above. 5. Anasarca, mostly secondary to cardiorenal. We will send for PC ratio and TSH to rule out any othe r reason. MAYANK/SUDHIR Voice ID: [id number] Report ID: [id number]
--- NOTE | 2024-10-30 17:10 | P.PN ---
Subjective Date of Service: 10/30/24 Chief Complaint: Shortness of breath Patient found sleeping comfortably. Oxygen saturation stable on room air. He is not orthopneic. Physical Examination - Vital Signs Temperature: 98.1 F Blood Pressure: 118/64 Pulse: 57 Respirations: 18 Pulse Ox (%): 99 - Studies Laboratory Data (last 24 hrs) 10/29/24 16:43 Sodium 138 Potassium 4.9 BUN 36 H Creatinine 1.47 H Glucose 139 H Magnesium 2.3 Assessment And Plan - Plan Physical examination General: Alert and oriented x3, NAD, HEENT: Conjunctiva not pale, anicteric sclera Neck: Supple, no elevated JVD Heart: Heart sounds 1 and 2 normal, regular rhythm, normal rate, no pedal edema Lungs: Adequate breath sounds bilaterally, mild bibasilar crackles. Abdomen: Soft, nondistended, nontender, normal bowel sounds. Extremities: No tenderness, no deformity Skin: Normal skin turgor, no rash, no nodules or ulcers. Neuro: No focal motor deficit. Normal speech. Psychiatry: Normal mood, no agitation. Diagnosis Acute on chronic systolic and diastolic heart failure Chronic kidney disease stage III Hypertension Bilateral pleural effusion Coronary to disease Acute on chronic systolic and diastolic heart failure Coronary to disease Bilateral pleural effusion Recurrent hospitalizations Chronic bilateral pleural effusions IV Lasix Continue Entresto and metoprolol as his BP will tolerate. Monitor intake and output Monitor renal function with diuresis. Cardiology consulted. Continue aspirin Chronic kidney disease stage III Nephrology consult Monitor renal function with diuresis. DVT prophylaxis: Heparin SQ Advanced directive: Full code
[2024-10-30] MEDS: SACUBITRIL/VALSARTAN 24/26 MG TAB PO SCH (21:00)
[2024-10-30] MEDS: ATORVASTATIN 40 MG TAB PO SCH (21:19)
[2024-10-31 06:47] LABS: Albumin 3.1 g/dL (3.4-5.0); Phosphorus 3.2 mg/dL (2.5-4.9); Thyroid Stimulating Hormone 0.815 uIU/mL (0.358-3.740); Uric Acid 8.5 mg/dL (3.5-7.2)
[2024-10-31 07:08] LABS: UR PROTEIN 23.3 mg/dL (<11.9); Urine Protein/Creatinine Ratio 0.17 ratio (<0.15)
[2024-10-31 10:59] VITALS: O2SAT 96
[2024-10-31 12:46] VITALS: BP 109/65; TEMP 97.7
--- NOTE | 2024-10-31 13:06 | P.DS ---
Admission Date: 10/29/24 Discharge Date: 10/31/24 Disposition: ROUTINE DISCHARGE Discharge Condition: FAIR Reason for Admission: Shortness of breath Brief History of Present Illness: Patient is a 64-year-old male with a known past medical history of combined systolic and diastolic CHF and multiple admissions for CHF exacerbation. Patient was recently discharged from the hospital for CHF exacerbation. He returns to the hospital complaining of shortness of breath and orthopnea. He has no lower extremity edema. His BNP was more than 25,000. He has chronic pulmonary edema. Chest x-ray during this admission actually reveals mild improvement of lung aeration from previous interstitial edema. Patient was hospitalized for further management. Hospital Course: Diagnosis Acute on chronic systolic and diastolic heart failure Chronic kidney disease stage III Hypertension Bilateral pleural effusion Coronary to disease Patient admitted to the medical care of the following medical problems addressed: Acute on chronic systolic and diastolic heart failure Coronary to disease Bilateral pleural effusion Recurrent hospitalizations Chronic bilateral pleural effusions Patient treated with IV Lasix. IV Lasix transitioned to oral lasix. Continued Entresto and metoprolol. Renal function was stable with diuresis Continued aspirin. Patient has a CAD that needs coronary intervention. Case discussed with Dr. Castro who recommend follow up as outpatient follow-up for arrangement for PCI with shockwave's to be done at [place]. Compliance to medications discussed with the patient. Patient Lasix dose increased to 40 mg twice daily due to recent multiple hospitalizations for interstitial edema. Chronic kidney disease stage III Nephrology evaluated patient and assisted with management with diuresis. Renal function was stable with diuresis Vital Signs/Physical Exam: Temp Pulse Resp BP Pulse Ox 97.7 F 67 18 109/65 99 10/31/24 12:00 10/31/24 12:00 10/31/24 12:00 10/31/24 12:10/31/24 12:00 General: Alert, In no apparent distress, Oriented x3 HEENT: Mucous membr. moist/pink, Sclerae nonicteric Neck: JVD not distended Respiratory: Clear to auscultation bilaterally, Normal air movement Cardiovascular: No edema, Regular rate/rhythm, Normal S1 S2 Gastrointestinal: Soft and benign, Non-distended, No tenderness Musculoskeletal: No swelling Integumentary: No cyanosis Neurological: Normal speech, Normal strength at 5/5 x4 extr Laboratory Data at Discharge: WBC 10.80 thou/uL (4.3-10.9) 10/30/24 04:38 Hgb 13.1 g/dL (13.6-17.9) L 10/30/24 04:38 Hct 38.5 % (39.6-49.0) L 10/30/24 04:38 Plt Count 301 thou/uL (152-406) 10/30/24 04:38 PT 13.8 SECONDS (10.0-13.0) H 10/29/24 15:36 INR 1.22 10/29/24 15:36 APTT 33.4 SECONDS (24.3-36.9) 10/29/24 15:36 Sodium 138 mEq/L (136-145) 10/31/24 06:08 Potassium 4.0 mEq/L (3.5-5.1) 10/31/24 06:08 BUN 41 mg/dL (7-18) H 10/31/24 06:08 Creatinine 1.53 mg/dL (0.70-1.30) H 10/31/24 06:08 Glucose 162 mg/dL (74-106) H 10/31/24 06:08 Uric Acid 8.5 mg/dL (3.5-7.2) H 10/31/24 06:08 Phosphorus 3.2 mg/dL (2.5-4.9) 10/31/24 06:08 Magnesium 2.1 mg/dL (1.6-2.4) 10/29/24 20:54 Home Medications: Atorvastatin Calcium 40 mg PO BEDTIME #30 tab 11/24/23 Sacubitril/Valsartan [Entresto 24 mg-26 mg Tablet] 1 tab PO BID #60 tab 11/24/23 Aspirin Chewable [Aspirin Chewable*] 81 mg PO DAILY 10/12/24 Metoprolol Succinate 50 mg PO DAILY #30 tab 10/13/24 Furosemide [Lasix*] 40 mg PO BIDL #60 tab 10/31/24 New Medications: Furosemide [Lasix*] 40 mg PO BIDL #60 tab Diet: AHA Activity: Ad paola Followup: Montez Castro MD [ACTIVE - CAN ADMIT] - 1-2 Weeks NONE,NONE [Primary Care Provider] - 1 Week Time spent managing pt's care (in minutes): 38
[2024-10-31] MEDS ORDERED: FUROSEMIDE 40 MG TABLET PO SCH (17:00)
--- NOTE | 2024-10-31 17:06 | PN ---
Date of Progress Note: 10/31/2024 Subjective: The patient was admitted with acute kidney injury secondary to cardiorenal with CHF exac erbation. The patient was started on diuresis. The patient currently on room air, feeling better. Physical Examination: Vital Signs: Blood pressure of 109/65, pulse of 67, afebrile. Chest: Clear to auscultation. Heart: S1, S2 regular. Abdomen: Soft, nontender. Extremities: No edema. Neurologic: Alert, no focality. Laboratory Data: Hemoglobin 13.1. Sodium 138, potassium 4, bicarb 26, BUN 41, creatinine 1.5. Calc ium 9.1. Uric acid 8.5. Current Medications: The patient on include aspirin, atorvastatin, breathing treatment, Entresto, La six 40 b.i.d. Assessment And Plan: 1. Acute kidney injury secondary to cardiorenal, recovered back to baseline, normal volume. I am goi ng to go ahead and change with Lasix to oral and we will follow up the patient. The patient cleared from the Renal standpoint for discharge planning. 2. Hypertension, controlled, optimal, continue current medication. 3. Congestive heart failure with exacerbation, back to baseline. 4. COPD, as by primary. MAYANK/SUDHIR Voice ID: [id number] Report ID: [id number]
== END 2024-10-31 15:25 | disposition home or self-care (01) | DRG 291 ==
LOC: ER 14:59 → ERHOLD 19:29 → 2ND 10-30 15:12
PROVIDERS: ADMIT Internal Medicine; ATTEND Internal Medicine
DX: I13.0 Hypertensive heart and chronic kidney disease with heart failure and stage 1 through stage 4 chronic kidney disease, or unspecified chronic kidney disease (principal); I50.43 Acute on chronic combined systolic (congestive) and diastolic (congestive) heart failure; R64 Cachexia; N17.9 Acute kidney failure, unspecified; N18.31 Chronic kidney disease, stage 3a; E78.5 Hyperlipidemia, unspecified; I25.10 Atherosclerotic heart disease of native coronary artery without angina pectoris; J44.9 Chronic obstructive pulmonary disease, unspecified; F17.210 Nicotine dependence, cigarettes, uncomplicated; Z88.0 Allergy status to penicillin; Z79.01 Long term (current) use of anticoagulants; Z90.49 Acquired absence of other specified parts of digestive tract; Z79.899 Other long term (current) drug therapy; Z79.82 Long term (current) use of aspirin; Z68.21 Body mass index [BMI] 21.0-21.9, adult; Z91.199 Patient's noncompliance with other medical treatment and regimen due to unspecified reason; Z11.52 Encounter for screening for COVID-19
CPT/HCPCS: 36415; 71045; 76770; 80048; 80069; 82550; 82570; 82947; 83735; 83880; 83970; 84100; 84156; 84443; 84484; 84550; 85025; 85610; 85730; 87428; 93005; 96374; 99285; J1644; J1940; J7613; J7644